=== PATIENT | female | born 1940 | race Caucasian/White ===

== ENCOUNTER 2024-01-16 14:24 | Inpatient (IN) | payer OTHER, SELFPAY ==
[2024-01-16] VITALS (12 sets, daily range): BP systolic 118–162; BP diastolic 62–93; BMI 24.2; BMI 23.8
--- NOTE | 2024-01-16 11:07 | ED.GENMED ---
History of Present Illness
General
Chief Complaint: Breathing Problem
Time Seen by Provider: 01/16/24 10:49
Travel History
Have you had any contact with someone who has COVID-19?: No
Do you have any symptoms of coronavirus? Fever > 100 degrees, chills, cough, shortness of breath, sore throat, loss of taste or smell, muscle aches, or headache?: No
History of Present Illness
History of Present Illness:
83-year-old female with history of COPD presents to the emergency department for evaluation of shortness of breath over the past several days. She was apparently admitted to [facility] last month for COPD exacerbation and then
discharged to rehab. She has been home for approximately 1 week living with her daughter locally. She denies any chest pain. States she only feels short of breath when exerting herself. Had a visiting nurse see her today that felt she should
come to the emergency department. Denies any fevers, chills, chest pain, nausea, vomiting. She has had lower extremity edema since the hospital stay.
Review of Systems
Review of Systems
Allergies reviewed?: Yes
All Other Systems: ROS reviewed and negative except as documented in HPI and ROS
Phy Exam
Physical Exam
Physical Exam:
GEN: Tachypneic with increased respiratory effort, nontoxic
Eyes: PERRLA, EOMs intact, no scleral icterus
HENT: NCAT, oral mucosa moist, no JVD, no cervical adenopathy.
Lungs: Tachypneic, pursed lip breathing, grossly diminished breath sounds with expiratory wheezes
Cardiac: RRR, no M/R/G, plus pitting bilateral lower extremities peripheral edema. Radial pulses 2+ bilat
Abdomen: S, NT, ND, NABS, no masses or hepatosplenomegaly
Neuro: AO x 3
MSK: No gross deformity or ecchymosis. No digital clubbing
Skin: No rashes, petechiae. Normal color, no pallor or jaundice.
Psych: Calm, cooperative, proper hygiene
Scores
Heart Failure Risk
Heart Failure Risk Score: Not Applicable
Course
Orders/Labs/Results
Orders:
Orders
01/16/24 Lunch
Cholesterol Lowering
At Your Request: Limited Participation
Does patient need a safe tray?: No
01/16/24 10:37
CR Chest - 2 Views Urgent
Comment:
Reason For Exam: respiratory distress
01/16/24 11:06
Ipratropium/Albuterol Sulfate [Duoneb] 3 ml INH R NOW ONE
01/16/24 11:09
COVID-19 Antigen Urgent
Source: Nasal Swab
Complete Blood Count/With Diff Urgent
Comprehensive Metabolic Panel Urgent
NT-proBNP Urgent
NT-proBNP Urgent
Comment: ADD ON
Troponin I Urgent
Influenza A+B Rapid Molecular Urgent
CHICA Source: Nasal Swab
Specimen Description:
01/16/24 12:44
Dexamethasone Sod Phosphate [Decadron] 6 mg IV NOW STA
01/16/24 13:48
Add On- LAB Urgent
Tests Added?: BNP
01/16/24 14:01
EKG [Electrocardiogram (*1)] Routine
Reason for Study: Other
Other Reason for Exam: eleva trop
01/16/24 14:02
Admit/Transfer Patient As Directed
Co-Sign Provider:
Level of Care: Inpatient admission
Assign to:: Medical/Surgical
Physician / Group: edward bautista
Diagnosis: COPD exac
Reason for Hospitalization: COPD exac
Expected length of stay greater than two midnights?: Yes
ELOS- Estimated Length of Stay in days: 2
I certify the patient meets the requirements for IP care: Yes
01/16/24 14:04
Code Status As Directed
Resuscitation Status: Full Code
Abnormal Lab Results
01/16/24
11:09
RBC 3.40 L 10^6/uL
(4.20-5.40)
Hgb 9.7 L g/dL
(12.0-16.0)
Hct 30.8 L %
(37.0-47.0)
MCHC 31.5 L g/dL
(33.0-37.0)
RDW 15.7 H %
(11.5-14.5)
Absolute Neuts (auto) 7.3 H 10^3/uL
(1.4-6.5)
Absolute Lymphs (auto) 0.8 L 10^3/uL
(1.2-3.4)
Absolute Monos (auto) 0.7 H 10^3/uL
(0.1-0.6)
Neutrophils % 81.2 H %
(42.2-75.2)
Lymphocytes % 9.0 L %
(20.5-51.1)
BUN 22 H mg/dl
(7-17)
Creatinine 1.2 H mg/dL
(0.6-1.0)
Glucose 136 H mg/dl
(70-99)
AST 43 H U/L
(14-36)
Troponin I 0.060 H* ng/ml
Total Protein 6.1 L g/dl
(6.3-8.2)
01/16/24 11:09
01/16/24 11:09
Vital Signs
Initial and Last Documented VS:
Initial Vital Signs
Temp Pulse Resp BP Pulse Ox
98.3 F 83 14 130/65 91
01/16/24 10:34 01/16/24 10:34 01/16/24 10:34 01/16/24 10:34 01/16/24 10:34
Last Documented Vital Signs
Temp Pulse Resp BP Pulse Ox
98.3 F 73 16 135/79 96
01/16/24 10:34 01/16/24 11:15 01/16/24 11:15 01/16/24 11:11 01/16/24 11:15
MDM/Problems Addressed
MDM/Problems Addressed:
83-year-old female presenting to the emergency department shortness of breath found to be in acute COPD exacerbation evidenced by wheezing and hypoxia as well as pursed lip breathing. Also consider potential pulmonary embolism given recent hospital
stay however her lack of chest pain, tachycardia, and presence of adventitious lung sounds is reassuring. She does not appear to be volume overloaded to suggest acute CHF. Given the your need for supplemental oxygen will admit to the hospitalist
service for further management
Comment
Comment:
EKG independently interpreted by me shows normal sinus rhythm at a rate of [address] changes concerning for ischemia
*Critical Care Note
Total Time (30-74mins, 75-104mins- exclusive of procedures): Not Applicable
ED Attending Note
-
Portions of this chart may have been created with voice recognition software.� Occasional wrong word or��sound alike� substitutions may have occurred due to the inherent limitations of voice recognition software.
Discharge Plan
Departure
Patient Disposition: Admit
Date of Disposition: 01/16/24
Time of Disposition: 12:50
Admit to: Med/Surg
Presentation/result/management discussed w/ accepting MD/DO: Hospitalist
Discharge Problem:
Acute exacerbation of chronic obstructive pulmonary disease, Acute hypoxemic respiratory failure
Interventions
Interventions:
*Risk Screen - Suicide Last Done: 01/16/24 10:34
*General Assessment Last Done: 01/16/24 10:34
*Neglect/Abuse Screening Last Done: 01/16/24 10:34
ED- Fall Risk Assessment Last Done: 01/16/24 11:14
*ED COVID-19 Vaccine History Last Done: 01/16/24 11:01
ED- Cardiac Assessment Last Done: 01/16/24 11:12
ED- Pulmonary Assessment Last Done: 01/16/24 11:12
[2024-01-16 11:23] LABS: % Basophils 0.9 % (0-2); % Eosinophils 1.1 % (0-6); % Immature Granulocytes 0.3 % (0-0.5); % Monocytes 7.5 % (1.7-9.3); % Neutrophils 81.2 % (42.2-75.2); Absolute Basophils 0.1 10^3/uL (0-0.2); Absolute Eosinophils 0.1 10^3/uL (0-0.7); Absolute Lymphocytes 0.8 10^3/uL (1.2-3.4); Absolute Monocytes 0.7 10^3/uL (0.1-0.6); Absolute Neutrophils 7.3 10^3/uL (1.4-6.5); Hematocrit 30.8 % (37.0-47.0); Hemoglobin 9.7 g/dL (12.0-16.0); Mean Corp Hgb Conc. 31.5 g/dL (33.0-37.0); Mean Corpuscular Hgb 28.5 pg (27.0-31.0); Mean Corpuscular Volume 90.6 fL (81.0-99.0); Nucleated Red Blood Cells % 0 %; Platelet Count 256 10^3/uL (130-400); Red Cell Dist. Width 15.7 % (11.5-14.5)
[2024-01-16] MEDS: DUONEB 3 ML INH ×2 (11:26→20:05)
[2024-01-16 11:30] LABS: COVID-19 Antigen Negative (Negative)
[2024-01-16 11:45] LABS: ALT (SGPT) 27 U/L (0-35); AST (SGOT) 43 U/L (14-36); Albumin 3.5 g/dl (3.5-5.0); Alkaline Phosphatase 97 U/L (38-126); Blood Urea Nitrogen 22 mg/dl (7-17); Calcium 9.7 mg/dl (8.4-10.2); Carbon Dioxide 28 mmol/L (22-30); Chloride 105 mmol/L (98-107); Estimated Creatinine Clearance 31 ml/min; Glucose 136 mg/dl (70-99); Potassium 4.6 mmol/L (3.5-5.1); Sodium 138 mmol/L (135-145); Total Bilirubin 0.6 mg/dl (0.2-1.3); Total Protein 6.1 g/dl (6.3-8.2); eGFR 44.64
[2024-01-16 11:48] LABS: NT-proBNP 698 pg/ml
--- NOTE | 2024-01-16 13:18 | HPS.HSE ---
Family Physician
-
Family Physician: NOT KNOW UNKNOWN - PT DOES
Chief Complaint
-
Worsening shortness of breath with activity
History of Present Illness
83-year-old female with a past medical history of COPD, duodenal ulcer/GERD, CAD, orthostatic hypotension on midodrine, and AAA rupture status post repair presents with worsening shortness of breath with activity. Patient was hospitalized from
11/28/2023 through 12/23/2023 at [facility] for acute COPD exacerbation. She was discharged to [facility]-term rehab for 11 days, then recently went home with her daughter 1 week ago. Patient was seen by home visiting nurses,
noted to have worsening dyspnea with activity. Patient does report that her breathing with activity is worse than normal, she denies coughing. No fever, no chills. No chest pain. No nausea, no vomiting. No black or bloody stools. She did have
dark stools while she was at [facility], was told that she has an ulcer of the small bowel. She did not need any blood transfusions at the time.
Medical History
Past Medical History
Past Medical History: Reports Other
Additional Past Medical History:
COPD
Duodenal ulcer/GERD
Coronary artery disease
Orthostatic hypotension
AAA rupture status post repair
Past Surgical History: Reports Other
Additional Past Surgical History:
AAA repair
Social History
Tobacco: Former Smoker (Smoked 1 pack/day for about 30 years, quit 24 years ago)
Alcohol: None
Drug: None
Family History
Family History: Not pertinent
Allergies / Home Medications
Allergies reflects when Allergies were last updated in [facility].
Home Medications with original date entered in [facility]
Allergy/Medication List:
Allergies
Allergy/AdvReac Type Severity Reaction Status Date / Time
No Known Allergies Allergy Verified 01/16/24 11:20
Home Medications Table - record
�Medication �Instructions �Recorded �Confirmed
aspirin 81 mg tablet,delayed 81 mg PO DAILY 01/16/24 01/16/24
release
atorvastatin 80 mg tablet (Lipitor) 80 mg PO HS 01/16/24 01/16/24
calcium carbonate 500 mg PO DAILY 01/16/24 01/16/24
cholecalciferol (vitamin D3) 50 50 mcg PO DAILY 01/16/24 01/16/24
mcg (2,000 unit) tablet (Vitamin
D3)
folic acid 1 mg tablet 1 mg PO DAILY 01/16/24 01/16/24
metoprolol tartrate 25 mg tablet 12.5 mg PO DAILY 01/16/24 01/16/24
midodrine 2.5 mg tablet 2.5 mg PO DAILY 01/16/24 01/16/24
pantoprazole 40 mg tablet,delayed 40 mg PO BID 01/16/24 01/16/24
release (Protonix)
therapeutic multivitamin 1 tab PO DAILY 01/16/24 01/16/24
timolol 0.5 % eye drops 1 drp BOTH EYES DAILY 01/16/24 01/16/24
umeclidinium 62.5 mcg-vilanterol 1 inh inhalation R DAILY 01/16/24 01/16/24
25 mcg/actuation powdr for
inhalation (Anoro Ellipta)
Review of Systems
-
A 12 point ROS was completed and negative except as noted: Yes
Physical Exam
Vital Signs
Vital Signs
Temp Pulse Resp BP Pulse Ox
98.3 F 73 16 135/79 96
01/16/24 10:34 01/16/24 11:15 01/16/24 11:15 01/16/24 11:11 01/16/24 11:15
Physical Exam
General: No Apparent Distress
HEENT: NormoCephalic, Anicteric, Moist mucous membranes and Atraumatic
Respiratory: Clear
Cardiac: S1/S2 and Regular Rhythm
GI: Soft, Non Tender, Non Distended and Normal Bowel Sounds
Musculoskeletal: No Clubbing, No Cyanosis, Edema, Left Lower Extremity and Edema, Right Lower Extremity
Skin: Warm and Dry
Neuro: AO x 3
Psych: Calm
Laboratory Results
-
01/16/24 11:09
01/16/24 11:09
Laboratory Results
Total Bilirubin 0.6 mg/dl (0.2-1.3) 01/16/24 11:09
AST 43 U/L (14-36) H 01/16/24 11:09
ALT 27 U/L (0-35) 01/16/24 11:09
Alkaline Phosphatase 97 U/L (38-126) 01/16/24 11:09
Troponin I 0.060 ng/ml H* 01/16/24 11:09
Impression/Plan
-
HPI: 83-year-old female with a past medical history of COPD, duodenal ulcer/GERD, CAD, orthostatic hypotension on midodrine, and AAA rupture status post repair presents with worsening shortness of breath with activity. Patient was hospitalized from
11/28/2023 through 12/23/2023 at [facility] for acute COPD exacerbation. She was discharged to [facility]-term rehab for 11 days, then recently went home with her daughter 1 week ago. Patient was seen by home visiting nurses,
noted to have worsening dyspnea with activity. Patient does report that her breathing with activity is worse than normal, she denies coughing. No fever, no chills. No chest pain. No nausea, no vomiting. No black or bloody stools. She did have
dark stools while she was at [facility], was told that she has an ulcer of the small bowel. She did not need any blood transfusions at the time.
#Acute COPD exacerbation
#Acute hypoxic respiratory sufficiency
COVID/flu negative, chest x-ray negative for acute cardiopulmonary disease
Patient satting 88% on room air, currently requiring 2 L of oxygen, wean as tolerated
Check a.m. ABG, treat with IV dexamethasone, azithromycin for anti-imflammatory effects, bronchodilators
#Bilateral lower extremity edema
Add on BNP, check LE US, check echo
#Non-myocardial infarction troponin elevation
No CP, monitor
#Recent duodenal ulcer
#Recent subacute blood loss anemia
Denies black or bloody stools
Obtain records from [facility]
Continue PPI twice daily, monitor hemoglobin
#Elevated creatinine, probable stage III CKD
Monitor creatinine, avoid NSAIDs/nephrotoxic drugs
#Generalized weakness
PT/OT
#Coronary artery disease
Continue aspirin/statin/beta-nga
#Orthostatic hypotension
Continue midodrine 2.5 mg daily
DVT prophylaxis�subcu heparin
Full code
[2024-01-16] MEDS: DECADRON 6 MG IV (13:44)
[2024-01-16 15:14] LABS: NT-proBNP 700 pg/ml
[2024-01-16] MEDS: HEPARIN 25000 UNITS/250 ML IV (18:02)
[2024-01-16 18:16] LABS: APTT 29.7 Sec (23.4-35.0)
[2024-01-16] MEDS: DUONEB INH (20:03)
[2024-01-16] MEDS: PULMICORT 0.5 MG INH (20:04)
--- NOTE | 2024-01-16 20:11 | PTCARENOTE ---
Rn workforce management coordinator- Patients admisssion completed. Neihart texted Dr Do to see if patient patient should be on heart monitor.
[2024-01-16] MEDS: PROTONIX 40 MG PO (21:04)
[2024-01-16] MEDS: ZITHROMAX 250 MG PO (21:04)
[2024-01-16] MEDS: LIPITOR 80 MG PO (21:05)
[2024-01-16] MEDS: DECADRON 4 MG IV (21:15)
[2024-01-16] MEDS: SODIUM BICARBONATE 1075 MEQ IV (21:16)
[2024-01-17 01:15] LABS: APTT 175.2 Sec (23.4-35.0)
[2024-01-17 06:00] VITALS: BMI 24.0
[2024-01-17 07:28] LABS: B.E. 5.4 mmol/L; HCO3 29.9 mmol/L (21-28); O2 Saturation % 98.2 % (94-98); PCO2 43 mmHg (32-35); PO2 81 mmHg (83-108); pH 7.45 (7.35-7.45)
[2024-01-17] MEDS: PULMICORT 0.5 MG INH ×2 (07:32→19:26)
[2024-01-17] MEDS: DUONEB 3 ML INH ×4 (07:32→19:26)
--- NOTE | 2024-01-17 08:16 | W.PN.HOSP.TC ---
Addendum entered and electronically signed by Brett Pollard MD 01/18/24 12:59:
Patient has non-ischemic myocardial injury
Original Note:
Today's Communication/Plan
-
see bold
Assessment / Plan
Assessment / Plan
#Acute COPD exacerbation
#Acute hypoxic respiratory sufficiency
COVID/flu negative, chest x-ray negative for acute cardiopulmonary disease
Patient now satting on room air, was requiring 2 L of oxygen
Will change from IV dexamethasone to oral prednisone, continue bronchodilators
#Acute left lower extremity DVT
Continue heparin drip, due to patient's recent duodenal ulcer bleed
Await records from [facility], patient may need chest CT to assess for PE
#Bilateral lower extremity edema
Follow-up echocardiogram
#Non-myocardial infarction troponin elevation
No CP, monitor
#Recent duodenal ulcer
#Recent subacute blood loss anemia
Denies black or bloody stools
Obtain records from [facility]
Continue PPI twice daily, monitor hemoglobin
#Elevated creatinine, probable stage III CKD
Monitor creatinine, avoid NSAIDs/nephrotoxic drugs
#Generalized weakness
PT/OT
#Coronary artery disease
Continue aspirin/statin/beta-nga
#Orthostatic hypotension
Continue midodrine 2.5 mg daily
DVT prophylaxis� heparin drip
Full code
Updated daughter at bedside/
Total time spent to see the patient on the floor, examine the patient, review data and lab results, discuss treatment plan with patient, nursing staff around 51 minutes.
Physical Exam
General: Frail, elderly, no acute distress
HEENT: Normocephalic, Atraumatic, EOMI, MMM
Respiratory: Bibasilar crackles noted, no wheezing
Cardiac: Normal S1/S2, Regular Rate and Rhythm
GI: Soft, Nontender, Nondistended, Normal Bowel Sounds
Extremities: No Clubbing, Cyanosis
Bilateral lower extremity edema noted
Neuro: Nonfocal/Grossly Intact
Psych: Calm, Cooperative
Derm: No Visible lesions
Anticipated Discharge: 24 - 48 hours
Subjective/Interval History
-
Date of Service: January 17, 2024
Patient reports dyspnea with activity has improved. No coughing, no shortness of breath at rest. No fever, no vomiting.
Objective Data
-
Labs:
Laboratory Results
01/17/24 01/17/24 01/17/24
00:28 06:00 07:20
APTT 175.2 H*
HCO3 29.9 H
Sodium Pending
Potassium Pending
Chloride Pending
Carbon Dioxide Pending
BUN Pending
Creatinine Pending
Glucose Pending
Calcium Pending
01/17/24
08:40
APTT Pending
HCO3
Sodium
Potassium
Chloride
Carbon Dioxide
BUN
Creatinine
Glucose
Calcium
Vital Signs:
Vital Signs
Temp Pulse Resp BP Pulse Ox
97.8 F 82 14 118/64 96
01/16/24 23:53 01/17/24 07:35 01/17/24 07:35 01/16/24 23:53 01/17/24 07:35
[2024-01-17 08:19] VITALS: BP 119/71
[2024-01-17 09:16] LABS: APTT 170.1 Sec (23.4-35.0)
[2024-01-17] MEDS: ProAmatine 2.5 MG PO (11:27)
[2024-01-17] MEDS: ZITHROMAX 250 MG PO (11:28)
[2024-01-17] MEDS: VITAMIN D3 (cholecalciferol) 50 MCG PO (11:28)
[2024-01-17] MEDS: FOLVITE 1 MG PO (11:28)
[2024-01-17] MEDS: LOPRESSOR 12.5 MG PO (11:28)
[2024-01-17] MEDS: OSCAL CAL 500 500 MG PO (11:28)
[2024-01-17] MEDS: ASPIR LOW (ENTERIC COATED) 81 MG PO (11:28)
[2024-01-17] MEDS: DECADRON 4 MG IV (11:28)
[2024-01-17] MEDS: PROTONIX 40 MG PO ×2 (11:28→20:12)
[2024-01-17] MEDS: THERAGRAN 1 TABLET PO (11:28)
[2024-01-17] MEDS: TIMOPTIC 0.5% OPHTHALMIC SOLUTION 1 DROP BOTH EYES (11:28)
[2024-01-17 12:01] LABS: Blood Urea Nitrogen 26 mg/dl (7-17); Calcium 9.3 mg/dl (8.4-10.2); Carbon Dioxide 28 mmol/L (22-30); Chloride 106 mmol/L (98-107); Estimated Creatinine Clearance 38 ml/min; Glucose 116 mg/dl (70-99); Potassium 4.1 mmol/L (3.5-5.1); Sodium 136 mmol/L (135-145); eGFR 55.55
[2024-01-17 16:10] VITALS: BP 111/61
[2024-01-17 16:38] LABS: APTT 87.4 Sec (23.4-35.0)
--- NOTE | 2024-01-17 16:49 | CM ---
assistant operations manager reviewed patient's chart and met with patient and patient lives alone in a 2 story home today, patient is independent with adl's and ambulation, no dme, per jose her children assist with shopping. patient has a prescription plan and
uses [facility] pharmacy.
PCP: Dr. Garduno.
Plan; Home when stable.
[2024-01-17] MEDS: LIPITOR 80 MG PO (20:12)
[2024-01-17] MEDS: HEPARIN 25000 UNITS/250 ML IV (20:20)
[2024-01-17 23:36] LABS: APTT 67.1 Sec (23.4-35.0)
[2024-01-17 23:37] VITALS: BP 129/71
[2024-01-18] MEDS: HEPARIN 2600 UNITS IV (00:34)
[2024-01-18 06:00] VITALS: BMI 24.1
[2024-01-18 07:04] LABS: Hematocrit 28.6 % (37.0-47.0); Mean Corp Hgb Conc. 31.5 g/dL (33.0-37.0); Mean Corpuscular Hgb 28.5 pg (27.0-31.0); Mean Corpuscular Volume 90.5 fL (81.0-99.0); Mean Platelet Volume 10.4 fL (7.4-10.4); Platelet Count 231 10^3/uL (130-400); Red Blood Cell Count 3.16 10^6/uL (4.20-5.40); Red Cell Dist. Width 15.9 % (11.5-14.5)
[2024-01-18] MEDS: PULMICORT 0.5 MG INH ×2 (07:33→20:14)
[2024-01-18] MEDS: DUONEB 3 ML INH ×4 (07:33→20:14)
[2024-01-18 07:47] LABS: APTT > 200 Sec (23.4-35.0)
[2024-01-18 08:11] VITALS: BP 147/74
--- NOTE | 2024-01-18 08:32 | W.PN.HOSP.TC ---
Today's Communication/Plan
-
C/s pulm
Stop steroids
Assessment / Plan
Assessment / Plan
#Acute left lower lobe mass concerning for malignancy
May need biopsy and/or PET scan
Patient has a smoking history, consult pulmonology
Obtain records from [facility]
#Acute bilateral PE
#Acute left lower extremity DVT
Echo EF 65-70%, mild LVH, stage 2 DD, mod TR
Was on IV heparin, changed to Eliquis 01/17�received 1 dose at 12 PM
Unclear if she needs to be resumed on IV heparin for poss biopsy or okay to resume Eliquis�will wait for pulmonology
#Acute COPD exacerbation ruled out
#COPD
COVID/flu negative, chest x-ray negative for acute cardiopulmonary disease
Patient was not wheezing or coughing in the ER, will stop prednisone
#Acute hypoxic respiratory sufficiency
Patient now satting on room air, was requiring 2 L of oxygen
#Non-myocardial infarction troponin elevation
#Non-ischemic myocardial injury
No CP, monitor
#Recent duodenal ulcer
#Recent subacute blood loss anemia
Denies black or bloody stools
Obtain records from [facility]
Continue PPI twice daily, monitor hemoglobin
#Elevated creatinine, probable stage III CKD
Monitor creatinine, avoid NSAIDs/nephrotoxic drugs
#Generalized weakness
PT/OT
#Coronary artery disease
Continue aspirin/statin/beta-nga
#Orthostatic hypotension
Continue midodrine 2.5 mg daily
DVT prophylaxis� heparin drip vs eliquis
Full code
Updated daughter 01/17
Total time spent to see the patient on the floor, examine the patient, review data and lab results, discuss treatment plan with patient, nursing staff around 55 minutes.
Physical Exam
General: Frail, elderly, no acute distress
HEENT: Normocephalic, Atraumatic, EOMI, MMM
Respiratory: Bibasilar crackles noted, no wheezing
Cardiac: Normal S1/S2, Regular Rate and Rhythm
GI: Soft, Nontender, Nondistended, Normal Bowel Sounds
Extremities: No Clubbing, Cyanosis
Bilateral lower extremity edema noted
Neuro: Nonfocal/Grossly Intact
Psych: Calm, Cooperative
Derm: No Visible lesions
Anticipated Discharge: > 48 hours
Subjective/Interval History
-
Date of Service: January 18, 2024
Reports breathing improved. No chest pain, no fever, no vomiting.
Objective Data
-
Labs:
Laboratory Results
01/17/24 01/18/24
23:14 06:47
WBC 10.0
Hgb 9.0 L
Hct 28.6 L
Plt Count 231
APTT 67.1 H > 200 H*
Sodium Pending
Potassium Pending
Chloride Pending
Carbon Dioxide Pending
BUN Pending
Creatinine Pending
Glucose Pending
Calcium Pending
Vital Signs:
Vital Signs
Temp Pulse Resp BP Pulse Ox
98 F 85 18 147/74 94
01/18/24 08:11 01/18/24 08:11 01/18/24 08:11 01/18/24 08:11 01/18/24 08:11
I&O
01/17/24 01/18/24 01/19/24
06:59 06:59 06:59
Intake Total 720 / 720
Balance 720 / 720
[2024-01-18 08:50] VITALS: BP 142/80; PULSE 121; PULSE 86; O2SAT 89
[2024-01-18 09:15] VITALS: BP 142/80; PULSE 91; O2SAT 91
[2024-01-18] MEDS: ProAmatine 2.5 MG PO (09:34)
[2024-01-18] MEDS: LOPRESSOR 12.5 MG PO (09:34)
[2024-01-18] MEDS: OSCAL CAL 500 500 MG PO (09:35)
[2024-01-18] MEDS: ZITHROMAX 250 MG PO (09:35)
[2024-01-18] MEDS: FOLVITE 1 MG PO (09:36)
[2024-01-18] MEDS: DELTASONE 40 MG PO (09:36)
[2024-01-18] MEDS: VITAMIN D3 (cholecalciferol) 50 MCG PO (09:36)
[2024-01-18] MEDS: ASPIR LOW (ENTERIC COATED) 81 MG PO (09:36)
[2024-01-18] MEDS: THERAGRAN 1 TABLET PO (09:36)
[2024-01-18] MEDS: TIMOPTIC 0.5% OPHTHALMIC SOLUTION 1 DROP BOTH EYES (09:36)
[2024-01-18] MEDS: PROTONIX 40 MG PO ×2 (09:36→20:53)
[2024-01-18 10:12] LABS: Blood Urea Nitrogen 31 mg/dl (7-17); Calcium 9.4 mg/dl (8.4-10.2); Carbon Dioxide 27 mmol/L (22-30); Chloride 105 mmol/L (98-107); Estimated Creatinine Clearance 34 ml/min; Glucose 84 mg/dl (70-99); Potassium 3.9 mmol/L (3.5-5.1); Sodium 136 mmol/L (135-145); eGFR 49.55
--- NOTE | 2024-01-18 11:29 | PN.CDI ---
CDI
- -
CDI:
Physician Documentation Request
Admit Date: 01/16/24 14:24
Dear Doctor Do,
Please review the following and provide your response in the progress notes.
Clinical Indicators:
Pt admitted with COPD exacerbation/ DVT left leg
Documented in H&P and progress note 01/16 ,'Non-myocardial infarction troponin elevation..'
Please provide a diagnosis for the documented troponin elevation:
Non-ischemic myocardial injury
Lab abnormality only
Other (please specify)
Use of terms such as suspected, likely, concern for, or probable (associated with a specific diagnosis that is being evaluated, monitored, or treated as if it exists) are acceptable and can be coded in the inpatient setting, when documented at the
time of discharge.
Thank you,
Judith Mcdonough RN
CDI Specialist
[place] [facility]
Please use your independent medical judgment in providing your response.
[2024-01-18] MEDS: ELIQUIS 10 MG PO (11:59)
--- NOTE | 2024-01-18 12:17 | CM ---
Addendum entered by Lovely Jose 01/18/24 16:02:
starter pack not available; Attending notified
Patient given a Xarelto coupon
Original Note:
Case Management Consult completed; cost check for Xarelto
Cost for Xarelto 20 mg tablet for 30 days is $30.00
Will provide Xarelto starter pack sample per Attending's request
[2024-01-18 15:00] VITALS: BP 139/74
--- NOTE | 2024-01-18 15:55 | CON.PUL ---
Consultation
Consultation Request
Date/Time Consultation Requested: 01/18/2024
Date/Time Consultation Performed: 01/18/2024
Requesting Provider: Dr. Pollard
Performing Provider: Dr. Chad Tong
Reason for Consultation: Abnormal CT chest
Medical History
-
History of Present Illness:
83-year-old woman with past medical history significant for COPD, prior duodenal ulcer/GERD, coronary artery disease, orthostatic hypotension on midodrine and abdominal aortic aneurysm rupture status post repair presents with worsening shortness of
breath with activity. Apparently hospitalized in early November at [facility] for COPD exacerbation.
Subsequently discharged to rehab for 11 days. About a week ago discharged home with her daughter.
Due to increased shortness of breath with activity she was sent to the hospital for further evaluation.
There is no reports of cough, wheezing or phlegm production.
Reports some dark stools.
Part of the evaluation including a CAT scan that demonstrated subsegmental pulmonary embolism.
She also has a lung mass with mediastinal lymph node.
Has emphysema as well.
Patient denies any weight loss.
Denies hemoptysis.
Past Medical History
Past Medical History: Other (See assessment and plan section)
Social History
Tobacco: Former Smoker ( 1 pack/day for about 30 years, quit 30 years ago.)
Alcohol: None
Drug: None
Living: With Family
Family History
Family History: Reviewed & Not Pertinent
Allergies / Home Medications
Allergies
Allergy/AdvReac Type Severity Reaction Status Date / Time
No Known Allergies Allergy Verified 01/16/24 11:20
Home Medications
�Medication �Instructions �Recorded �Confirmed �Last Taken �Type
aspirin 81 mg tablet,delayed 81 mg PO DAILY Blood Clot 01/16/24 01/16/24 01/16/24 History
release Prevention/Tx
atorvastatin 80 mg tablet (Lipitor) 80 mg PO HS High Cholesterol 01/16/24 01/16/24 01/15/24 History
calcium carbonate 500 mg PO DAILY Supplement 01/16/24 01/16/24 01/16/24 History
cholecalciferol (vitamin D3) 50 50 mcg PO DAILY Supplement 01/16/24 01/16/24 01/16/24 History
mcg (2,000 unit) tablet (Vitamin
D3)
folic acid 1 mg tablet 1 mg PO DAILY Supplement 01/16/24 01/16/24 01/16/24 History
metoprolol tartrate 25 mg tablet 12.5 mg PO DAILY Blood Pressure 01/16/24 01/16/24 01/16/24 History
midodrine 2.5 mg tablet 2.5 mg PO DAILY Blood Pressure 01/16/24 01/16/24 01/16/24 History
pantoprazole 40 mg tablet,delayed 40 mg PO BID Gastrointestinal Issue 01/16/24 01/16/24 01/16/24 History
release (Protonix)
therapeutic multivitamin 1 tab PO DAILY Supplement 01/16/24 01/16/24 01/16/24 History
timolol 0.5 % eye drops 1 drp BOTH EYES DAILY Eye Condition 01/16/24 01/16/24 01/16/24 History
umeclidinium 62.5 mcg-vilanterol 1 inh inhalation R DAILY 01/16/24 01/16/24 01/16/24 History
25 mcg/actuation powdr for Lung/Breathing Issues
inhalation (Anoro Ellipta)
Review of Systems
-
History Source: Patient
All other systems: Negative unless noted
Vitals / Labs / Diagnostic Testing
Vital Signs
Temp Pulse Resp BP Pulse Ox
98 F 80 16 147/74 99
01/18/24 08:11 01/18/24 15:45 01/18/24 15:45 01/18/24 09:34 01/18/24 12:05
Lab Data
01/18/24 06:47
01/18/24 06:47
Laboratory Results
01/17/24 01/17/24 01/18/24
16:20 23:14 06:47
APTT 87.4 H 67.1 H > 200 H*
Microbiology
01/16/24 11:09 Nasal Swab Influenza Types A & B (JAMIA) - Final
Negative for Influenza A & B, NAAT
Negative results must be combined with clinical observations
and patient history.
Nucleic Acid Amplification test (NAAT)performed on the
[employer] platform.
Diagnostic Testing:
Physical Exam
-
HEENT: Normocephalic
Cardiovascular: S1/S2
Respiratory: Non-Labored Respirations
GI: Soft and Non Distended
Neurology: Awake, Alert and No Motor Deficits
Skin: Warm
General: Respiratory Distress (n)
Assessment
-
Abnormal CT chest: Lung mass with mediastinal lymph node. CT chest
01/18/2024:1). There is a 17 mm spiculated pulmonary mass in the superior segment of the right lower lobe. There is a 2.3 cm enlarged subcarinal lymph node.
2). There are small bilateral pulmonary emboli
3). There are moderately extensive emphysematous changes throughout both lungs
4). Enlarged thyroid with multiple small thyroid masses which, if clinically indicated, could be best further evaluated and followed with thyroid ultrasound
5). 5 cm hiatal hernia
6). Small bilateral pleural effusions with compressive atelectasis at the posterior lung bases
7). Atherosclerosis
8). 9.5 cm hepatic cyst
Shortness of breath: Possibly due to symptomatic anemia On top of COPD/emphysema.
No evidence for acute exacerbation.
Bilateral pulmonary embolism likely provoked from recent hospital stay-small burden
No RV dysfunction on echocardiogram.
Mildly increased troponins
Echocardiogram 01/17/2024: Normal LVEF. Normal biventricular size and function. Mild LVH. Stage II diastolic dysfunction. Mild aortic stenosis. Mild MR. Moderate TR. Pulmonary hypertension 50 mmHg.
History of recent duodenal ulcer: Recurrent acute blood loss anemia.
Conditions present prior admission:
Recent hospital stay [facility] 11/2023 subsequently discharged to rehab.
COPD-emphysema
Chronic kidney disease
Coronary artery disease
History of orthostatic hypotension on midodrine
Former smoker
Assessment and plan:
CT of the chest reviewed in detail with patient: Has a highly suspicious spiculated lung mass with mediastinal lymph node. No prior imaging for review.
Ideally bronchoscopic approach with robotic guidance and endobronchial ultrasound guidance is ideal.
With recent pulmonary embolism, significant deconditioning, recent GI bleed risk of general anesthesia is very high.
I recommend obtaining a PET/CT in the outpatient setting and then decide best approach for biopsy. If there is metastatic disease outside of the chest were patient will require only local anesthesia and light sedation will be best.
-
COPD: Not in exacerbation. Baseline oxygen requirements.
Shortness of breath combination of anemia and deconditioning.
Okay to continue DuoNebs and Pulmicort for now. Transition back to Anoro at discharge.
Usually patient is on Anoro in the outpatient setting. Does not follow-up locally.
-
Okay to continue oral anticoagulation for now. No immediate plans for biopsy.
-
Discussed with daughter in detail, images reviewed. She agrees that it is best to hold off on any biopsies at this point.
I offered local follow-up, patient is not sure whether she is going to stay local or go back to her home.
My information will be left in the chart to schedule appointment if patient chooses to stay locally.
-
Will continue to follow
--- NOTE | 2024-01-18 16:18 | PTCARENOTE ---
Pt AAO x3, ALMANZAR; OOB to chair/BR with minimal assistance/walker, luisa well. No c/o weakness/dizziness. VSS. On room air- pulse ox 99%, pt with (+) slight ANN; denies SOB. Abd soft, rounded, luisa PO well. Voids in BR without difficulty. Resting in
chair at present, no c/o. Will continue to monitor.
--- NOTE | 2024-01-18 16:34 | W.PN.UPDATE ---
Update Note
Progress Note Update
Appreciate pulmonology input, recommend outpatient PET scan, followed by possible outpatient biopsy.
Plan to discharge her home tomorrow on Xarelto starter pack.
Will start therapeutic Lovenox tonight to make Xarelto starter pack easier to follow.
[2024-01-18] MEDS: LIPITOR 80 MG PO (21:01)
[2024-01-18] MEDS: LOVENOX 70 MG SC (21:13)
[2024-01-18 23:45] VITALS: BP 117/71
[2024-01-19 05:42] LABS: Hematocrit 26.5 % (37.0-47.0); Hemoglobin 8.4 g/dL (12.0-16.0); Mean Corp Hgb Conc. 31.7 g/dL (33.0-37.0); Mean Corpuscular Hgb 28.4 pg (27.0-31.0); Mean Corpuscular Volume 89.5 fL (81.0-99.0); Mean Platelet Volume 10.4 fL (7.4-10.4); Platelet Count 218 10^3/uL (130-400); Red Blood Cell Count 2.96 10^6/uL (4.20-5.40); Red Cell Dist. Width 15.9 % (11.5-14.5); White Blood Cell Count 8.5 10^3/uL (4.8-10.8)
[2024-01-19 06:00] VITALS: BMI 24.2
[2024-01-19 06:16] LABS: Blood Urea Nitrogen 32 mg/dl (7-17); Calcium 9.4 mg/dl (8.4-10.2); Carbon Dioxide 29 mmol/L (22-30); Chloride 105 mmol/L (98-107); Estimated Creatinine Clearance 34 ml/min; Glucose 90 mg/dl (70-99); Potassium 4.2 mmol/L (3.5-5.1); Sodium 135 mmol/L (135-145); eGFR 49.55
[2024-01-19] MEDS: DUONEB 3 ML INH ×2 (07:27→16:00)
[2024-01-19] MEDS: PULMICORT 0.5 MG INH (07:28)
[2024-01-19 08:02] VITALS: BP 149/80
--- NOTE | 2024-01-19 08:34 | W.PN.HOSP.TC ---
Today's Communication/Plan
-
Discharge today
Assessment / Plan
Assessment / Plan
#Acute right lower lobe mass concerning for malignancy
Appreciate pulmonology input, recommend outpatient PET scan plus or minus biopsy
Follow-up with pulmonology in the office
#Acute bilateral PE
#Acute left lower extremity DVT
Echo EF 65-70%, mild LVH, stage 2 DD, mod TR
Status post IV heparin drip, followed by 1 dose of Eliquis
Now on therapeutic Lovenox
Will discharge on Xarelto
#Acute COPD exacerbation ruled out
#COPD
COVID/flu negative, chest x-ray negative for acute cardiopulmonary disease
Patient was not wheezing or coughing in the ER, will stop prednisone
#Acute hypoxic respiratory sufficiency
Patient now satting on room air at rest, was requiring 2 L of oxygen
Patient does require oxygen, 2 L with activity�case management is setting up
#Non-myocardial infarction troponin elevation
#Non-ischemic myocardial injury
No CP, monitor
#Recent duodenal ulcer
#Recent subacute blood loss anemia
Denies black or bloody stools
Obtain records from [facility]
Continue PPI twice daily, monitor hemoglobin
#Elevated creatinine, probable stage III CKD
Monitor creatinine, avoid NSAIDs/nephrotoxic drugs
#Generalized weakness
PT/OT
#Coronary artery disease
Continue aspirin/statin/beta-nga
#Orthostatic hypotension
Continue midodrine 2.5 mg daily
DVT prophylaxis� heparin drip vs eliquis
Full code
Updated daughter 01/18
Physical Exam
General: Frail, elderly, no acute distress
HEENT: Normocephalic, Atraumatic, EOMI, MMM
Respiratory: Bibasilar crackles noted, no wheezing
Cardiac: Normal S1/S2, Regular Rate and Rhythm
GI: Soft, Nontender, Nondistended, Normal Bowel Sounds
Extremities: No Clubbing, Cyanosis
Bilateral lower extremity edema noted
Neuro: Nonfocal/Grossly Intact
Psych: Calm, Cooperative
Derm: No Visible lesions
Anticipated Discharge: Today
Subjective/Interval History
-
Date of Service: January 18, 2024
Denies bleeding anywhere. No hematuria, no vaginal bleeding, no black or bloody stools. No fever, no vomiting. Reports dyspnea with activity improved overall.
Objective Data
-
Labs:
Laboratory Results
01/18/24 01/18/24
06:47 16:00
WBC 10.0
Hgb 9.0 L
Hct 28.6 L
Plt Count 231
APTT > 200 H* Pending
Sodium 136
Potassium 3.9
Chloride 105
Carbon Dioxide 27
BUN 31 H
Creatinine 1.1 H
Glucose 84
Calcium 9.4
Vital Signs:
Vital Signs
Temp Pulse Resp BP Pulse Ox
98 F 82 16 147/74 99
01/18/24 08:11 01/18/24 11:26 01/18/24 11:26 01/18/24 09:34 01/18/24 12:05
I&O
01/17/24 01/18/24 01/19/24
06:59 06:59 06:59
Intake Total 720 / 720
Balance 720 / 720
--- NOTE | 2024-01-19 09:15 | CM ---
Addendum entered by Lovely Jose 01/19/24 17:27:
Home Oxygen Orders faxed to [place] @ [facility]
Portable oxygen will be delivered to patient's room
Addendum entered by Lovely Jose 01/19/24 09:26:
IMM explained; form signed @ [phone]
Original Note:
Met with patient at bedside and spoke with patient's daughter, Dariana, via phone
Case Management Consult completed; [facility] health [facility] for [facility]N [facility]
Plan: discharge to daughter's home today with Home Health services; daughter will provide transport home
[2024-01-19] MEDS: PROTONIX 40 MG PO (09:23)
[2024-01-19] MEDS: LOPRESSOR 12.5 MG PO (09:23)
[2024-01-19] MEDS: VITAMIN D3 (cholecalciferol) 50 MCG PO (09:23)
[2024-01-19] MEDS: OSCAL CAL 500 500 MG PO (09:23)
[2024-01-19] MEDS: THERAGRAN 1 TABLET PO (09:24)
[2024-01-19] MEDS: ProAmatine 2.5 MG PO (09:24)
[2024-01-19] MEDS: FOLVITE 1 MG PO (09:25)
[2024-01-19] MEDS: TIMOPTIC 0.5% OPHTHALMIC SOLUTION 1 DROP BOTH EYES (09:25)
[2024-01-19] MEDS: LOVENOX 70 MG SC (09:28)
[2024-01-19 10:48] VITALS: O2SAT 82; O2SAT 90
[2024-01-19 11:24] LABS: Hematocrit 28.8 % (37.0-47.0); Hemoglobin 9.4 g/dL (12.0-16.0)
[2024-01-19] MEDS: DUONEB INH (12:10)
[2024-01-19 15:52] VITALS: BP 122/68; PULSE 74; O2SAT 98
[2024-01-19 16:12] VITALS: BP 118/57
--- NOTE | 2024-01-19 16:34 | W.PN.UPDATE ---
Update Note
Progress Note Update
Patient is in need of oxygen on exertion due to pulse oximetry of 90% on room air at rest; 82% on room air with exertion.
Patient was placed on 2L O2 via nasal cannula with saturation of 92%. Oxygen will help to improve hypoxemia.
Patient is mobile within the home. Albuterol therapy has been discussed and is ineffective in treating hypoxemia-related symptoms.
Oxygen will improve the patient's symptoms.
--- NOTE | 2024-01-19 16:37 | W.DCSUMMARY ---
Discharge Summary
Discharge Data
Date of Admission: 01/16/24
Date of Discharge: 01/19/24
-
Pending Results: No
Hospital Course
Discharge diagnosis:
Acute right lower lobe mass concerning for malignancy
Acute bilateral pulmonary emboli
Acute left lower extremity deep vein thrombosis
Acute hypoxic respiratory insufficiency
Chronic obstructive pulmonary disease
Generalized weakness
Recent duodenal ulcer
Recent subacute blood loss anemia
Nonischemic myocardial injury
Elevated creatinine, probable stage III chronic kidney disease
Orthostatic hypotension on midodrine
Coronary artery disease
Hepatic cyst
Hiatal hernia
Thyroid nodules
Consults: Pulmonology
Chest CT:
1). There is a 17 mm spiculated pulmonary mass in the superior segment of the right lower lobe. This mass is suspicious for malignancy. PET scan and/or biopsy is recommended for further evaluation. There is a 2.3 cm enlarged subcarinal lymph node.
2). There are small bilateral pulmonary emboli
3). There are moderately extensive emphysematous changes throughout both lungs
4). Enlarged thyroid with multiple small thyroid masses which, if clinically indicated, could be best further evaluated and followed with thyroid ultrasound
5). 5 cm hiatal hernia
6). Small bilateral pleural effusions with compressive atelectasis at the posterior lung bases
7). Atherosclerosis
8). 9.5 cm hepatic cyst
Hospital course:
83-year-old female with a past medical history of COPD, duodenal ulcer/GERD, CAD, orthostatic hypotension on midodrine, and AAA rupture status post repair presents with worsening shortness of breath with activity. Patient was hospitalized from
11/28/2023 through 12/23/2023 at [facility] for acute COPD exacerbation. Patient was not coughing or wheezing in the ER. She was hypoxic satting 88% on room air. Initially there was concern for COPD exacerbation, and she received IV
steroids and bronchodilators.
She had new onset bilateral lower extremity edema, lower extremity Dopplers confirm acute left lower extremity DVT. She had a recent duodenal ulcer bleed a month ago, and therefore she was anticoagulated with IV heparin. She was continued on
pantoprazole 40 mg twice a day. She did not have any black or bloody stools. Her hemoglobin remained stable greater than 9.
Chest CT shows acute bilateral PE, and right lower lobe mass concerning for malignancy. Patient was seen in conjunction with pulmonology. Pulmonology recommends outpatient PET scan, with possible biopsy. She was transitioned to therapeutic
Lovenox. COPD was ruled out, and her steroids were discontinued.
Patient continues to have intermittent dyspnea with activity, overall improved. She also had hemoptysis. She was counseled that her dyspnea is likely from a combination of the bilateral PE, anemia, and deconditioning. She was also reassured that
hemoptysis is common with PE, and should improve. She does need oxygen with activity, she needs to wear oxygen 2 L/min with activity. Case management has set her up with home oxygen.
Patient's hemoglobin was stable. She did not have any bleeding, no black or bloody stools on anticoagulation. Her hemoglobin remained stable greater than 9. She is medically stable for discharge. She will be discharged on a Xarelto starter pack.
Case management did confirm that this is covered by her insurance. She needs to follow-up with her primary care doctor in 1 week, as well as pulmonology in the office in 2-3 weeks.
Disposition: Home with home care
Discharge planning: Required 45 minutes
Discharge Plan
-
Patient Disposition: Home with Home Care
Discharge Diagnosis/Procedures: Acute hypoxic respiratory insufficiency, new bilateral pulmonary emboli, left lower extremity deep vein thrombosis/DVT, chronic obstructive pulmonary disease, weakness
Condition: Fair
Diet: Regular
Activity: As tolerated
Activity Restrictions/Additional Instructions:
Please wear oxygen 2 L with activity.
Please follow-up with pulmonology in the office in 2-3 weeks, and your primary care doctor in 1 week.
Instructions: Deep Vein Thrombosis (Blood Clots in the Legs) (DC), Pulmonary Embolism (Blood Clot in the Lungs) (DC)
Referrals:
Garduno,Yuliet [Other]
Chad Valero MD [Active] - in two to three weeks
Prescriptions:
New
Xarelto DVT-PE Treat 30d Start 15 mg (42)- 20 mg (9) tablets,dose pack
See Rx Instructions .ROUTE .COMPLEX Qty: 51 0RF
Rx Instructions:
Take according to directions on package
Continued
atorvastatin [Lipitor] 80 mg Tablet
80 mg PO HS
therapeutic multivitamin Tablet
1 tab PO DAILY
calcium carbonate 500 mg calcium (1,250 mg) Tablet
500 mg PO DAILY
timolol 0.5 % Drops
1 drp BOTH EYES DAILY
pantoprazole [Protonix] 40 mg Tablet,Delayed Release (Dr/Ec)
40 mg PO BID
folic acid 1 mg Tablet
1 mg PO DAILY
midodrine 2.5 mg Tablet
2.5 mg PO DAILY
metoprolol tartrate 25 mg Tablet
12.5 mg PO DAILY
cholecalciferol (vitamin D3) [Vitamin D3] 50 mcg (2,000 unit) Tablet
50 mcg PO DAILY
Anoro Ellipta 62.5-25 mcg/actuation Blister With Device
1 inh INHALATION R DAILY
Discontinued
aspirin 81 mg Tablet,Delayed Release (Dr/Ec)
81 mg PO DAILY
Discharge Orders:
Discharge Patient (As Directed); Ordered 01/19/24
Ordered By: Brett Pollard
Discharge Date and Time
Print Language: KOREAN
== END 2024-01-19 19:02 | disposition home health service (06) | DRG 176 ==
LOC: 4 EAST ACU 14:24
PROVIDERS: Physician Assistant; ADMITTING PHYSICIAN Family Medicine; EMERGENCY PHYSICIAN Student in an Organized Health Care Education/Training Program; OTHER PHYSICIAN Internal Medicine Critical Care Medicine
DX: I26.99 Other pulmonary embolism without acute cor pulmonale (principal); J98.11 Atelectasis; J90 Pleural effusion, not elsewhere classified; I5A Non-ischemic myocardial injury (non-traumatic); I82.452 Acute embolism and thrombosis of left peroneal vein; I82.442 Acute embolism and thrombosis of left tibial vein; J43.9 Emphysema, unspecified; K21.9 Gastro-esophageal reflux disease without esophagitis; I25.10 Atherosclerotic heart disease of native coronary artery without angina pectoris; I07.1 Rheumatic tricuspid insufficiency; R09.02 Hypoxemia; R06.89 Other abnormalities of breathing; K44.9 Diaphragmatic hernia without obstruction or gangrene; E04.2 Nontoxic multinodular goiter; K76.89 Other specified diseases of liver; I27.20 Pulmonary hypertension, unspecified; I95.1 Orthostatic hypotension; I71.40 Abdominal aortic aneurysm, without rupture, unspecified; N18.30 Chronic kidney disease, stage 3 unspecified; Z87.891 Personal history of nicotine dependence; Z11.52 Encounter for screening for COVID-19; Z87.11 Personal history of peptic ulcer disease; Z79.82 Long term (current) use of aspirin; Z86.711 Personal history of pulmonary embolism
CPT/HCPCS: 36600; 71046; 71275; 80048; 80053; 82805; 83880; 84484; 85014; 85018; 85025; 85027; 85730; 87502; 87811; 93005; 93306; 93970; 94640; 94761; 96374; 97116; 97163; 97167; 99285; J7030; Q9967

== ENCOUNTER 2024-02-03 05:00 | Observation (INO) | payer OTHER, SELFPAY ==
[2024-02-02 22:09] VITALS: BP 128/73
[2024-02-03] VITALS (9 sets, daily range): BP systolic 116–152; BP diastolic 61–89; BMI 25.4; BMI 22.5
--- NOTE | 2024-02-03 00:34 | ED.SKININJ ---
HPI-Injury
General
Chief Complaint: Skin Problem
Source: patient
Exam Limitations: none
Time Seen by Provider: 02/03/24 00:19
Nursing documentation reviewed up to this point in time: agreed with
Travel History
Have you had any contact with someone who has COVID-19?: No
Do you have any symptoms of coronavirus? Fever > 100 degrees, chills, cough, shortness of breath, sore throat, loss of taste or smell, muscle aches, or headache?: No
History of Present Illness-Injury
Initial Injury comments:
This a pleasant 83-year-old female that presents with bleeding likely from a small cut on her tongue. Patient was recently discharged after being diagnosed with a DVT and pulmonary embolus 1 week ago. She is on Xarelto. Tonight she was watching
television and had some bleeding from her mouth. Daughter was concerned because she cannot get the bleeding stopped. Patient reports no obvious injury. Upon arrival, bleeding. Denies any other complaints at this time.
Review of Systems
Review of Systems
Allergies reviewed?: Yes
All Other Systems: ROS reviewed and negative except as documented in HPI and ROS
Constitutional: Reports no symptoms
EENT: Reports no symptoms
Respiratory: Reports no symptoms
Cardiac: Reports no symptoms
ABD/GI: Reports no symptoms
: Reports no symptoms
Musculoskeletal: Reports no symptoms
Skin: Reports no symptoms
Neurological: Reports no symptoms
Endocrine: Reports no symptoms
Hematologic/Lymphatic: Reports bleeding
Psychiatric: Reports no symptoms
Phy Exam
General Physical Exam
General Presentation: well appearing and no apparent distress
General age: appears stated age
General Skin: warm and dry
General Habitus: elderly
General Mental: alert
General Hydration: appears well hydrated
General Chronic Disability: other (On chronic home O2)
ENT Exam
ENT Exam: EOMI, neck supple and other (No obvious laceration on the tongue.)
Additional ENT: Dentures
Gastrointestinal Exam
Rectal Exam: normal sphincter tone
Stool: brown
Guaiac Status: negative
Neurological Exam
Neurological Exam: alert, oriented x3, no motor deficits and speech normal
Musculoskeletal Exam
Musculoskeletal Exam: full ROM, no edema and neuro vasc intact
Skin Exam
Skin Exam: normal color, warm/dry and other (Large hematoma on the right hip which daughter states is subacute)
Psychiatric Exam
Psychiatric Exam: normal mood/affect
Course
Orders/Labs/Results
Orders:
Orders
02/03/24 02:32
Complete Blood Count/With Diff Urgent
Comprehensive Metabolic Panel Urgent
Prothrombin Time Urgent
Abnormal Lab Results
02/03/24
02:32
RBC 3.28 L 10^6/uL
(4.20-5.40)
Hgb 9.0 L g/dL
(12.0-16.0)
Hct 27.7 L %
(37.0-47.0)
MCHC 32.5 L g/dL
(33.0-37.0)
RDW 16.2 H %
(11.5-14.5)
Lymphocytes % 17.8 L %
(20.5-51.1)
PT 29.5 H Sec
(11.4-14.6)
Carbon Dioxide 31 H mmol/L
(22-30)
BUN 26 H mg/dl
(7-17)
Glucose 118 H mg/dl
(70-99)
Total Protein 5.9 L g/dl
(6.3-8.2)
Albumin 3.4 L g/dl
(3.5-5.0)
02/03/24 02:32
02/03/24 02:32
Vital Signs
Initial and Last Documented VS:
Initial Vital Signs
Temp Pulse Resp BP Pulse Ox
98.3 F 98 18 128/73 95
02/02/24 22:09 02/02/24 22:09 02/02/24 22:09 02/02/24 22:09 02/02/24 22:09
Last Documented Vital Signs
Temp Pulse Resp BP Pulse Ox
98.3 F 98 18 128/73 95
02/02/24 22:09 02/02/24 22:09 02/02/24 22:09 02/02/24 22:09 02/02/24 22:09
*Critical Care Note
Total Time (30-74mins, 75-104mins- exclusive of procedures): Not Applicable
Update Note
Update Note:
02/03/2024 0121 AM: Patient started bleeding again. Will be admitted
ED Attending Note
-
Portions of this chart may have been created with voice recognition software.� Occasional wrong word or��sound alike� substitutions may have occurred due to the inherent limitations of voice recognition software.
Discharge Plan
Departure
Patient Disposition: Admit
Date of Disposition: 02/03/24
Time of Disposition: 03:40
Admit to: Telemetry
Presentation/result/management discussed w/ accepting MD/DO: Hospitalist
Patient with high blood pressure during this ER visit?: Yes
Condition: Good
Discharge Problem:
Bleeding while on Xarelto
Instructions: Taking oral medicines for blood clots
Prescriptions:
No Action
atorvastatin [Lipitor] 80 mg Tablet
80 mg PO HS
therapeutic multivitamin Tablet
1 tab PO DAILY
calcium carbonate 500 mg calcium (1,250 mg) Tablet
500 mg PO DAILY
timolol 0.5 % Drops
1 drp BOTH EYES DAILY
pantoprazole [Protonix] 40 mg Tablet,Delayed Release (Dr/Ec)
40 mg PO BID
folic acid 1 mg Tablet
1 mg PO DAILY
midodrine 2.5 mg Tablet
2.5 mg PO DAILY
metoprolol tartrate 25 mg Tablet
12.5 mg PO DAILY
cholecalciferol (vitamin D3) [Vitamin D3] 50 mcg (2,000 unit) Tablet
50 mcg PO DAILY
Anoro Ellipta 62.5-25 mcg/actuation Blister With Device
1 inh INHALATION R DAILY
Xarelto DVT-PE Treat 30d Start 15 mg (42)- 20 mg (9) tablets,dose pack
See Rx Instructions .ROUTE .COMPLEX Qty: 51 0RF
Rx Instructions:
Take according to directions on package
Referrals:
[facility] [Outside]
NONE,* [Family Provider] -
Activity Restrictions/Additional Instructions:
Please return to the ER with any return of symptoms.
It was a pleasure meeting you and taking part in your care. We hope for your continued healing and wellness.
Please read discharge instructions in their entirety. However, they are for general education and may not describe your exact diagnosis at discharge. Information on your ER visit and medical conditions were discussed with you along with appropriate
follow up information...
If indicated, please take your medications as instructed and indicated on discharge paperwork.
Please schedule a follow up appointment as directed. Call to schedule an appointment
Please return to the emergency department with ANY change in, persisting, or worsening of symptoms. If any of your symptoms do not improve, or persist, or become more severe within 6-12 hours, please return to the emergency department for further
care.
Please return to the emergency department if you develop a headache, neck pain/stiffness, fever greater than 100.4F, chest pain, shortness of breath, persistent nausea, vomiting, slurred speech, difficulty walking, numbness/tingling, weakness, signs
of infection or any other symptoms that are worrisome to you.
If you have any questions or concerns please do not hesitate to call the Hospital at or E-mail me directly at [email or web address]
Interventions
Interventions:
*Risk Screen - Suicide Last Done: 02/02/24 22:09
*General Assessment Last Done: 02/02/24 22:09
*Neglect/Abuse Screening Last Done: 02/02/24 22:09
ED- Fall Risk Assessment Last Done: 02/03/24 00:41
*ED COVID-19 Vaccine History Last Done: 02/03/24 02:44
ED-Skin Assessment Last Done: 02/03/24 00:40
Discharge Date and Time
Print Language: DIVEHI
[2024-02-03 03:01] LABS: % Basophils 0.7 % (0-2); % Eosinophils 1.8 % (0-6); % Immature Granulocytes 0.3 % (0-0.5); % Lymphocytes 17.8 % (20.5-51.1); % Neutrophils 71.4 % (42.2-75.2); Absolute Basophils 0.1 10^3/uL (0-0.2); Absolute Eosinophils 0.1 10^3/uL (0-0.7); Absolute Lymphocytes 1.3 10^3/uL (1.2-3.4); Absolute Monocytes 0.6 10^3/uL (0.1-0.6); Absolute Neutrophils 5.1 10^3/uL (1.4-6.5); Hematocrit 27.7 % (37.0-47.0); Mean Corp Hgb Conc. 32.5 g/dL (33.0-37.0); Mean Corpuscular Hgb 27.4 pg (27.0-31.0); Mean Corpuscular Volume 84.5 fL (81.0-99.0); Mean Platelet Volume 10.1 fL (7.4-10.4); Nucleated Red Blood Cells % 0 %; Platelet Count 218 10^3/uL (130-400); Red Blood Cell Count 3.28 10^6/uL (4.20-5.40); Red Cell Dist. Width 16.2 % (11.5-14.5); White Blood Cell Count 7.1 10^3/uL (4.8-10.8)
[2024-02-03 03:12] LABS: INR 2.75; PT 29.5 Sec (11.4-14.6)
[2024-02-03 03:24] LABS: ALT (SGPT) 21 U/L (0-35); AST (SGOT) 28 U/L (14-36); Albumin 3.4 g/dl (3.5-5.0); Alkaline Phosphatase 89 U/L (38-126); Blood Urea Nitrogen 26 mg/dl (7-17); Calcium 9.8 mg/dl (8.4-10.2); Carbon Dioxide 31 mmol/L (22-30); Chloride 104 mmol/L (98-107); Glucose 118 mg/dl (70-99); Potassium 4.3 mmol/L (3.5-5.1); Sodium 137 mmol/L (135-145); Total Bilirubin 0.5 mg/dl (0.2-1.3); Total Protein 5.9 g/dl (6.3-8.2); eGFR 55.55
--- NOTE | 2024-02-03 04:00 | HPS.HSE ---
Addendum entered and electronically signed by Margo Garduno MD 02/03/24 06:45:
*blood consent was signed in ER
Original Note:
Family Physician
-
Family Physician: * NONE
Chief Complaint
-
bleeding
History of Present Illness
Ms. Meghna Renteria is a 83 yo woman with hx COPD, duodenal ulcer/GERD, CAD, orthostatic hypotension on midodrine, AAA rupture s/p repair, recent admission 01/15-01/19/24 for acute bilateral PE and DVT where she was initially started on IV heparin then
transitioned to Xarelto presents to the ER with mouth bleeding.
Patient was watching television when had acute bleeding from her mouth. Bleeding didn't stop and so was brought to the ER. Per ER physician it stopped for a couple of hours and plan was for discharge but she then had visible blood oozing out of
her mouth. No trauma to her mouth, no pain. No noticeable bleeding from nose. Patient last took Xarelto yesterday evening around 6-7 PM.
She states her breathing has been stable. No fevers/chills. No abdominal pain. No nausea/vomiting. + LE swelling. No chest pain.
Medical History
Past Medical History
Past Medical History: Reports Other
Additional Past Medical History:
COPD
Duodenal ulcer/GERD
Coronary artery disease
Orthostatic hypotension
AAA rupture status post repair
Pulmonary Embolism
DVT
Past Surgical History: Reports Other
Additional Past Surgical History:
AAA repair
Social History
Tobacco: Former Smoker (Smoked 1 pack/day for about 30 years, quit 24 years ago)
Alcohol: None
Drug: None
Family History
Family History: Not pertinent
Allergies / Home Medications
Allergies reflects when Allergies were last updated in [facility].
Home Medications with original date entered in [facility]
Allergy/Medication List:
Allergies
Allergy/AdvReac Type Severity Reaction Status Date / Time
No Known Allergies Allergy Verified 01/16/24 11:20
Home Medications
atorvastatin 80 mg tablet (Lipitor) 80 mg PO HS High Cholesterol 01/16/24
calcium carbonate 500 mg PO DAILY Supplement 01/16/24
cholecalciferol (vitamin D3) 50 mcg (2,000 unit) tablet (Vitamin D3) 50 mcg PO DAILY Supplement 01/16/24
folic acid 1 mg tablet 1 mg PO DAILY Supplement 01/16/24
metoprolol tartrate 25 mg tablet 12.5 mg PO DAILY Blood Pressure 01/16/24
midodrine 2.5 mg tablet 2.5 mg PO DAILY Blood Pressure 01/16/24
pantoprazole 40 mg tablet,delayed release (Protonix) 40 mg PO BID Gastrointestinal Issue 01/16/24
therapeutic multivitamin 1 tab PO DAILY Supplement 01/16/24
timolol 0.5 % eye drops 1 drp BOTH EYES DAILY Eye Condition 01/16/24
umeclidinium 62.5 mcg-vilanterol 25 mcg/actuation powdr for inhalation (Anoro Ellipta) 1 inh inhalation R DAILY Lung/Breathing Issues 01/16/24
rivaroxaban 15 mg (42)-20 mg (9) tablets in a starter pack (Xarelto DVT-PE Treatment 30-Day Starter) See Rx Instructions PO .COMPLEX #51 ea 01/19/24
Review of Systems
-
History Source: Patient
A 12 point ROS was completed and negative except as noted: Yes
Physical Exam
Vital Signs
Vital Signs
Temp Pulse Resp BP Pulse Ox
98.3 F 98 18 146/77 93
02/02/24 22:09 02/02/24 22:09 02/02/24 22:09 02/03/24 03:00 02/03/24 03:45
Physical Exam
General: No Apparent Distress
HEENT: PERRLA and Other (dry blood at corners of mouth; patient without dentures in. No visible active oozing in mouth; some dry blood in nares, wearing O2 )
Respiratory: Clear; No Wheezes
Cardiac: S1/S2 and Regular Rhythm
GI: Soft and Non Tender
Musculoskeletal: Edema, Left Lower Extremity and Edema, Right Lower Extremity
Skin: Warm and Dry; No Rash
Neuro: AO x 3
Psych: Calm
Laboratory Results
-
02/03/24 02:32
02/03/24 02:32
Laboratory Results
PT 29.5 Sec (11.4-14.6) H 02/03/24 02:32
INR 2.75 02/03/24 02:32
Total Bilirubin 0.5 mg/dl (0.2-1.3) 02/03/24 02:32
AST 28 U/L (14-36) 02/03/24 02:32
ALT 21 U/L (0-35) 02/03/24 02:32
Alkaline Phosphatase 89 U/L (38-126) 02/03/24 02:32
Data Reviewed
-
Diagnostic Radiology: Report Reviewed by me
Lab Data: Labs Reviewed by me
Impression/Plan
-
Ms. Meghna Renteria is a 83 yo woman with hx COPD, duodenal ulcer/GERD, CAD, orthostatic hypotension on midodrine, AAA rupture s/p repair, recent admission 01/15-01/19/24 for acute bilateral PE and DVT where she was initially started on IV heparin then
transitioned to Xarelto presents to the ER with mouth bleeding.
Triage VS: T 98.3, P 98, RR 18, BP 128/73, SpO2 95%
LABS: WBC 7.1, Hg 9.0, PLT 218, Na 137, K+ 4.3, Cl 104, CO2 31, BUN 26, Cr 1.0, Glucose 118
Acute Bleeding exacerbated by Xarelto Use
Bleeding in mouth without appreciable trauma on exam; 2/2 posterior epistaxis?
-given recurrence of bleeding in ER and patient has need for blood thinner, will admit to observation. ER physician described blood drooling down sides of mouth.
-ENT consult to locate area of bleeding
-keep NPO until seen by ENT
Recent PE/DVT on Xarelto
-hold Xarelto for now and place on IV heparin gtt given recent PE/DVT. Patient was on day of BID Xarelto before switching to once a day dosing
-IV heparin gtt to start at 7AM (12 hours after last Xarelto dose)
-stop heparin if significant bleeding
Hx Duodenal Ulcer/GERD
-INSTRUMENT OPERATOR PPI, Pepcid
CAD
Orthostatic Hypotension
-INSTRUMENT OPERATOR midodrine
COPD, chronic
-INSTRUMENT OPERATOR inhalers
AAA rupture s/p repair
HLD
-INSTRUMENT OPERATOR statin
DVT PPx heparin gtt
FULL CODE
[2024-02-03 06:16] LABS: Hematocrit 28.2 % (37.0-47.0); Hemoglobin 8.8 g/dL (12.0-16.0); Mean Corp Hgb Conc. 31.2 g/dL (33.0-37.0); Mean Corpuscular Hgb 26.9 pg (27.0-31.0); Mean Corpuscular Volume 86.2 fL (81.0-99.0); Mean Platelet Volume 9.8 fL (7.4-10.4); Platelet Count 207 10^3/uL (130-400); Red Blood Cell Count 3.27 10^6/uL (4.20-5.40); Red Cell Dist. Width 16.1 % (11.5-14.5); White Blood Cell Count 6.8 10^3/uL (4.8-10.8)
[2024-02-03 06:31] LABS: APTT 42.9 Sec (23.4-35.0)
[2024-02-03] MEDS: D5LR 1000 IV (06:43)
[2024-02-03] MEDS: HEPARIN 25000 UNITS/250 ML IV (06:44)
--- NOTE | 2024-02-03 06:50 | PTCARENOTE ---
Pt from ED- oriented to room and POC. Heparin drip initiated per order. Pt ANN o2 sat after ambulating to bathroom 88% placed 2 L NC, HR initially 120s, now at rest 100s. Will notify dayshift.
--- NOTE | 2024-02-03 09:14 | PTCARENOTE ---
Holding heparin per MD due to bleeding from mouth and throwing up a clot.
[2024-02-03 09:31] LABS: Glucose - Point of Care 113 mg/dl (70-99)
--- NOTE | 2024-02-03 10:12 | PTCARENOTE ---
BP 122/77 HR 115
--- NOTE | 2024-02-03 10:13 | PTCARENOTE ---
Approx 915 I was made aware that the pump was beeping for an occlusion. RN attempted to flush and it was occluded. At that time the patient was spitting up large amounts of blood and clots. MD Mills was notified and said to stop the heparin. IV
fluids continued. Another line was placed by IV team and the other line was fixed by IV team. The pt has a consult with ENT who has not been by to see her yet. Pt is AAx3 BP 122/77 HR 115 O2 97
Airway is patent, suction initiated to clear blood and clots.
[2024-02-03] MEDS: FOLVITE PO (10:54)
[2024-02-03] MEDS: LOPRESSOR PO (10:54)
[2024-02-03] MEDS: TIMOPTIC 0.5% OPHTHALMIC SOLUTION 1 DROP BOTH EYES (10:55)
[2024-02-03] MEDS: PROTONIX PO (10:55)
[2024-02-03] MEDS: ProAmatine PO (10:55)
--- NOTE | 2024-02-03 11:01 | CON.MD ---
Consultation - Medical
-
Pt seen and full consult dictated.
Pt admitted for severe oral bleeding from the right upper buccal membrane, at an area likely due to abrasion from dentures.
Sutures placed at bedside with control of bleeding.
Pt should be on liquid diet for the next 2 days, then a soft diet for 10 days.
Avoid dentures for 10 days.
She should f/u with us in the office in about 2 -3 weeks.
She may go home tomorrow AM if no significant bleeding
[2024-02-03 13:10] LABS: APTT 37.5 Sec (23.4-35.0)
--- NOTE | 2024-02-03 13:50 | W.PN.HOSP.TC ---
Today's Communication/Plan
-
stabilization of bleeding today
CLD
anticipate resuming hep ggt to trial tolerability tomorrow
Assessment / Plan
Assessment / Plan
Physical Exam
General: No Apparent Distress
HEENT: PERRLA and Other (dry blood at corners of mouth; patient without dentures in. No visible active oozing in mouth; some dry blood in nares, wearing O2 )
Respiratory: Clear; No Wheezes
Cardiac: S1/S2 and Regular Rhythm
GI: Soft and Non Tender
Musculoskeletal: Edema, Left Lower Extremity and Edema, Right Lower Extremity
Skin: Warm and Dry; No Rash
Neuro: AO x 3
Psych: Calm
Ms. Meghna Renteria is a 83 yo woman with hx COPD, duodenal ulcer/GERD, CAD, orthostatic hypotension on midodrine, AAA rupture s/p repair, recent admission 01/15-01/19/24 for acute bilateral PE and DVT where she was initially started on IV heparin then
transitioned to Xarelto presents to the ER with mouth bleeding.
Acute Bleeding exacerbated by Xarelto Use
Bleeding in mouth without appreciable trauma on exam; appears to be from right upper buccal membrane, likely abrasion from dentures
� Sutures placed at bedside with control bleeding
� Liquid diet for the next 2 days, then soft diet for 10 days
� Avoid dentures for 10 days
� Follow-up ENT in office in 2 to 3 weeks
� Hold on anticoagulation for today, trial resumption tomorrow a.m.
Recent PE/DVT on Xarelto
-hold Xarelto for now
-trial hep ggt tomorrow am
Hx Duodenal Ulcer/GERD
-UTILITY MANAGER PPI, Pepcid
CAD
Orthostatic Hypotension
-UTILITY MANAGER midodrine
COPD, chronic
-UTILITY MANAGER inhalers
AAA rupture s/p repair
HLD
-UTILITY MANAGER statin
DVT PPx SCDs
FULL CODE
Anticipated Discharge: 24 - 48 hours
Subjective/Interval History
-
Date of Service: February 03, 2024
upper molar/palate bleeding - sutured this am
Objective Data
-
Labs:
Laboratory Results
02/03/24 02/03/24 02/03/24
02:32 06:10 06:34
WBC 7.1 6.8
Hgb 9.0 L 8.8 L
Hct 27.7 L 28.2 L
Plt Count 218 207
PT 29.5 H
INR 2.75
APTT 42.9 H Cancelled
Sodium 137
Potassium 4.3
Chloride 104
Carbon Dioxide 31 H
BUN 26 H
Creatinine 1.0
Glucose 118 H
Calcium 9.8
Total Bilirubin 0.5
AST 28
ALT 21
Alkaline Phosphatase 89
02/03/24 02/03/24 02/03/24
12:35 14:00 22:00
WBC
Hgb Pending Pending
Hct
Plt Count
PT
INR
APTT 37.5 H
Sodium
Potassium
Chloride
Carbon Dioxide
BUN
Creatinine
Glucose
Calcium
Total Bilirubin
AST
ALT
Alkaline Phosphatase
Vital Signs:
Vital Signs
Temp Pulse Resp BP Pulse Ox
97.4 F 98 18 126/67 97
02/03/24 11:48 02/03/24 11:48 02/03/24 11:48 02/03/24 11:48 02/03/24 12:11
I&O
02/02/24 02/03/24 02/04/24
06:59 06:59 06:59
Intake Total 0 / 0
Balance 0 / 0
Review of Systems
-
History Source: Patient
All other systems: Not reviewed unless documented
Data Reviewed
-
Labs: Labs Reviewed by me
[2024-02-03 13:59] LABS: Hemoglobin 8.4 g/dL (12.0-16.0)
--- NOTE | 2024-02-03 19:06 | CM ---
met with patient and daughter at bedside.patient usually lives [place] in house in [place] but has been staying temporarily with her jessy lennon in house with no steps to enter,her bed and bath is up 3 steps.she ambulates with a walker and needs A
bathig,her pcp is dr gautam and she uses [facility] [address] [facility] [place].juaquin is current with [facility].she has been at [facility] in past.
patient with a recent adm of bl pe and dvt 01/15 to 01/18/24 is now adm with mouth bleeding on xarelto.she has an abrasion in mouth from dentures rubbing.dentures are out for 10 days and patient is on a liquid diet.monitor hgb.therapy will evaluate
patient .referral has been sent to [facility] for resumption of care.Plan dc home with daughter and [facility].
[2024-02-03] MEDS: LIPITOR 80 MG PO (21:41)
[2024-02-03] MEDS: PROTONIX 40 MG PO (21:41)
[2024-02-04 03:44] VITALS: BP 104/59
[2024-02-04 07:00] VITALS: BP 113/64
[2024-02-04] MEDS: FOLVITE 1 MG PO (08:13)
[2024-02-04] MEDS: PROTONIX 40 MG PO ×2 (08:13→20:34)
[2024-02-04] MEDS: TIMOPTIC 0.5% OPHTHALMIC SOLUTION 1 DROP BOTH EYES (08:14)
[2024-02-04] MEDS: LOPRESSOR 12.5 MG PO (08:14)
[2024-02-04] MEDS: ProAmatine 2.5 MG PO (08:14)
[2024-02-04 09:09] LABS: Blood Urea Nitrogen 22 mg/dl (7-17); Calcium 9.5 mg/dl (8.4-10.2); Carbon Dioxide 31 mmol/L (22-30); Chloride 104 mmol/L (98-107); Estimated Creatinine Clearance 34 ml/min; Glucose 90 mg/dl (70-99); Sodium 136 mmol/L (135-145); eGFR 49.55
[2024-02-04 10:02] LABS: Hematocrit 27.8 % (37.0-47.0); Hemoglobin 8.3 g/dL (12.0-16.0); Mean Corp Hgb Conc. 29.9 g/dL (33.0-37.0); Mean Corpuscular Hgb 26.8 pg (27.0-31.0); Mean Corpuscular Volume 89.7 fL (81.0-99.0); Platelet Count 226 10^3/uL (130-400); Red Cell Dist. Width 16.4 % (11.5-14.5); White Blood Cell Count 5.2 10^3/uL (4.8-10.8)
[2024-02-04] MEDS: HEPARIN 25000 UNITS/250 ML IV (10:21)
[2024-02-04] MEDS: MIRALAX 17 GRAMS PO (10:36)
[2024-02-04 11:00] VITALS: BP 112/65
--- NOTE | 2024-02-04 13:17 | W.PN.HOSP.TC ---
Today's Communication/Plan
-
trial hep ggt
Assessment / Plan
Assessment / Plan
Physical Exam
General: No Apparent Distress
HEENT: PERRLA and Other (dry blood at corners of mouth; patient without dentures in. No visible active oozing in mouth; some dry blood in nares, wearing O2 )
Respiratory: Clear; No Wheezes
Cardiac: S1/S2 and Regular Rhythm
GI: Soft and Non Tender
Musculoskeletal: Edema, Left Lower Extremity and Edema, Right Lower Extremity
Skin: Warm and Dry; No Rash
Neuro: AO x 3
Psych: Calm
Ms. Meghna Renteria is a 83 yo woman with hx COPD, duodenal ulcer/GERD, CAD, orthostatic hypotension on midodrine, AAA rupture s/p repair, recent admission 01/15-01/19/24 for acute bilateral PE and DVT where she was initially started on IV heparin then
transitioned to Xarelto presents to the ER with mouth bleeding.
Acute Bleeding exacerbated by Xarelto Use
Bleeding in mouth without appreciable trauma on exam; appears to be from right upper buccal membrane, likely abrasion from dentures
� Sutures placed at bedside with control of bleeding
� Liquid diet for the next 2 days (Day 1), then soft diet for 10 days
� Avoid dentures for 10 days
� Follow-up ENT in office in 2 to 3 weeks
� Resume Hep ggt as trial of anticoagulation - if stable, can restart xarelto tomorrow
Recent PE/DVT on Xarelto
-hold Xarelto for now
-trial hep ggt and monitor
Hx Duodenal Ulcer/GERD
-CREDIT REPORTING CLERK PPI, Pepcid
CAD
Orthostatic Hypotension
-CREDIT REPORTING CLERK midodrine
COPD, chronic
-CREDIT REPORTING CLERK inhalers
AAA rupture s/p repair
HLD
-CREDIT REPORTING CLERK statin
DVT PPx Hep ggt
FULL CODE
Anticipated Discharge: Within 24 hours
Subjective/Interval History
-
Date of Service: February 04, 2024
bleeding stopped, trial hep ggt
Objective Data
-
Labs:
Laboratory Results
02/04/24 02/04/24 02/04/24
06:41 09:06 09:35
WBC 5.2
Hgb 8.3 L
Hct 27.8 L
Plt Count 226
APTT 34.0
Sodium 136
Potassium 4.0
Chloride 104
Carbon Dioxide 31 H
BUN 22 H
Creatinine 1.1 H
Glucose 90
Calcium 9.5
02/04/24
16:20
WBC
Hgb
Hct
Plt Count
APTT Pending
Sodium
Potassium
Chloride
Carbon Dioxide
BUN
Creatinine
Glucose
Calcium
Vital Signs:
Vital Signs
Temp Pulse Resp BP Pulse Ox
97.5 F 83 16 112/65 98
02/04/24 11:00 02/04/24 11:00 02/04/24 11:00 02/04/24 11:00 02/04/24 11:00
I&O
02/03/24 02/04/24 02/05/24
06:59 06:59 06:59
Intake Total 0 / 0 720 / 720
Balance 0 / 0 720 / 720
Review of Systems
-
History Source: Patient
All other systems: Not reviewed unless documented
Data Reviewed
-
Labs: Labs Reviewed by me
[2024-02-04 15:29] VITALS: BP 119/63
[2024-02-04 18:18] LABS: APTT 104.8 Sec (23.4-35.0)
[2024-02-04 19:44] VITALS: BP 120/60
[2024-02-04] MEDS: LIPITOR 80 MG PO (20:34)
[2024-02-04 23:47] VITALS: BP 125/59
[2024-02-05 01:20] LABS: APTT > 200 Sec (23.4-35.0)
[2024-02-05 03:25] VITALS: BP 124/61
[2024-02-05 07:07] VITALS: BP 100/57
[2024-02-05] MEDS: NON-FORMULARY ITEM 1 UNIT INH (08:19)
[2024-02-05 08:25] LABS: Hematocrit 25.2 % (37.0-47.0); Hemoglobin 7.8 g/dL (12.0-16.0); Mean Corpuscular Hgb 26.8 pg (27.0-31.0); Mean Corpuscular Volume 86.6 fL (81.0-99.0); Mean Platelet Volume 10.9 fL (7.4-10.4); Platelet Count 187 10^3/uL (130-400); Red Blood Cell Count 2.91 10^6/uL (4.20-5.40); Red Cell Dist. Width 16.3 % (11.5-14.5); White Blood Cell Count 4.7 10^3/uL (4.8-10.8)
[2024-02-05] MEDS: LOPRESSOR 12.5 MG PO (08:46)
[2024-02-05] MEDS: PROTONIX 40 MG PO (08:46)
[2024-02-05] MEDS: ProAmatine 2.5 MG PO (08:46)
[2024-02-05] MEDS: FOLVITE 1 MG PO (08:46)
[2024-02-05] MEDS: TIMOPTIC 0.5% OPHTHALMIC SOLUTION 1 DROP BOTH EYES (08:46)
[2024-02-05] MEDS: XARELTO 15 MG PO (09:44)
--- NOTE | 2024-02-05 10:36 | W.PN.HOSP.TC ---
Addendum entered and electronically signed by Glenn Mills MD 02/05/24 14:10:
[id number]
Original Note:
Today's Communication/Plan
-
- Liquid diet for the next 2 days (Day 2), then soft diet for 10 days
� Avoid dentures for 10 days
� Follow-up ENT in office in 2 to 3 weeks
� Tolerated heparin drip, switch to Xarelto this morning
-CBC in 3-5 days with pcp
Assessment / Plan
Assessment / Plan
Physical Exam
General: No Apparent Distress
HEENT: PERRLA and Other (dry blood at corners of mouth; patient without dentures in. No visible active oozing in mouth; some dry blood in nares, wearing O2 )
Respiratory: Clear; No Wheezes
Cardiac: S1/S2 and Regular Rhythm
GI: Soft and Non Tender
Musculoskeletal: Edema, Left Lower Extremity and Edema, Right Lower Extremity
Skin: Warm and Dry; No Rash
Neuro: AO x 3
Psych: Calm
Ms. Meghna Renteria is a 83 yo woman with hx COPD, duodenal ulcer/GERD, CAD, orthostatic hypotension on midodrine, AAA rupture s/p repair, recent admission 01/15-01/19/24 for acute bilateral PE and DVT where she was initially started on IV heparin then
transitioned to Xarelto presents to the ER with mouth bleeding.
Acute Bleeding exacerbated by Xarelto Use
Bleeding in mouth without appreciable trauma on exam; appears to be from right upper buccal membrane, likely abrasion from dentures
� Sutures placed at bedside with control of bleeding - bleeding has subsided for almost 48 hours
� Liquid diet for the next 2 days (Day 2), then soft diet for 10 days
� Avoid dentures for 10 days
� Follow-up ENT in office in 2 to 3 weeks
� Tolerated heparin drip, switch to Xarelto this morning
Recent PE/DVT on Xarelto
-Tolerated heparin drip, transition back to Xarelto
Hx Duodenal Ulcer/GERD
-AUDOGRAPH OPERATOR PPI, Pepcid
CAD
Orthostatic Hypotension
-AUDOGRAPH OPERATOR midodrine
COPD, chronic
-AUDOGRAPH OPERATOR inhalers
AAA rupture s/p repair
HLD
-AUDOGRAPH OPERATOR statin
DVT PPx Xarelto
FULL CODE
More than 30 minutes spent in discharge including
Final examination of the patient
Summarizing hospital stay
Instructions for continuing care to all relevant caregivers
Preparation of discharge records, prescriptions, and referral forms
Total time spent (35 in minutes):
Anticipated Discharge: Today
Subjective/Interval History
-
Date of Service: February 05, 2024
Tolerated heparin drip, liquid diet, switch to Xarelto this morning
Objective Data
-
Labs:
Laboratory Results
02/05/24 02/05/24 02/05/24
00:09 07:27 09:30
WBC 4.7 L
Hgb 7.8 L
Hct 25.2 L
Plt Count 187
APTT > 200 H* Cancelled
Vital Signs:
Vital Signs
Temp Pulse Resp BP Pulse Ox
97.8 F 88 15 100/57 97
02/05/24 07:07 02/05/24 08:46 02/05/24 08:19 02/05/24 08:46 02/05/24 08:19
I&O
02/04/24 02/05/24 02/06/24
06:59 06:59 06:59
Intake Total 720 / 720 1000 / 1000
Output Total 100 / 100
Balance 720 / 720 900 / 900
Review of Systems
-
History Source: Patient
All other systems: Not reviewed unless documented
Data Reviewed
-
Labs: Labs Reviewed by me
--- NOTE | 2024-02-05 10:39 | W.DS.TRANS ---
DC Summary - [employer]
-
Discharge Instructions:
Discharge Diagnosis/Procedures Acute Bleeding exacerbated by Xarelto Use
Bleeding in mouth without appreciable trauma on
exam; appears to be from right upper buccal
membrane, likely abrasion from dentures
Diet Low Cholesterol,Low Fat
Additional Diets Pt should be on liquid diet for today, then a
soft diet for 10 days.
Avoid dentures for 10 days.
Activity As tolerated
Blood Work cbc in 3-5 days with pcp
Instructions:
Stand-Alone Forms:
Changes to Home Medications: No
Discharge Medications:
DC Medications w/original date entered in [facility]
atorvastatin 80 mg tablet (Lipitor) 80 mg PO HS High Cholesterol 01/16/24
calcium carbonate 500 mg PO DAILY Supplement 01/16/24
cholecalciferol (vitamin D3) 50 mcg (2,000 unit) tablet (Vitamin D3) 50 mcg PO DAILY Supplement 01/16/24
folic acid 1 mg tablet 1 mg PO DAILY Supplement 01/16/24
metoprolol tartrate 25 mg tablet 12.5 mg PO DAILY Blood Pressure 01/16/24
midodrine 2.5 mg tablet 2.5 mg PO DAILY Blood Pressure 01/16/24
pantoprazole 40 mg tablet,delayed release (Protonix) 40 mg PO BID Gastrointestinal Issue 01/16/24
therapeutic multivitamin 1 tab PO DAILY Supplement 01/16/24
timolol 0.5 % eye drops 1 drp BOTH EYES DAILY Eye Condition 01/16/24
umeclidinium 62.5 mcg-vilanterol 25 mcg/actuation powdr for inhalation (Anoro Ellipta) 1 inh inhalation R DAILY Lung/Breathing Issues 01/16/24
rivaroxaban 15 mg (42)-20 mg (9) tablets in a starter pack (Xarelto DVT-PE Treatment 30-Day Starter) See Rx Instructions PO .COMPLEX #51 ea 01/19/24
Home Medication Changes
na
Pending Results: No
[2024-02-05 11:37] VITALS: BP 107/46
--- NOTE | 2024-02-05 12:27 | CM ---
Pt for dc today. SW talked with daughter and pt at bedside.
Referral sent and accepted for [facility] with [facility].
No additional needs identified.
--- NOTE | 2024-02-05 12:55 | PTCARENOTE ---
Pt. returned to unit from IR.
== END 2024-02-05 13:27 | disposition home health service (06) ==
LOC: 4 EAST ACU 05:00
PROVIDERS: ADMITTING PHYSICIAN Student in an Organized Health Care Education/Training Program; ATTENDING PHYSICIAN Internal Medicine; EMERGENCY PHYSICIAN Student in an Organized Health Care Education/Training Program; OTHER PHYSICIAN Otolaryngology
DX: D68.32 Hemorrhagic disorder due to extrinsic circulating anticoagulants (principal); R58 Hemorrhage, not elsewhere classified; K13.79 Other lesions of oral mucosa; J44.9 Chronic obstructive pulmonary disease, unspecified; K21.9 Gastro-esophageal reflux disease without esophagitis; I95.1 Orthostatic hypotension; E78.5 Hyperlipidemia, unspecified; I25.10 Atherosclerotic heart disease of native coronary artery without angina pectoris; Z86.79 Personal history of other diseases of the circulatory system; Z86.711 Personal history of pulmonary embolism; Z79.01 Long term (current) use of anticoagulants; Z86.718 Personal history of other venous thrombosis and embolism; Z99.81 Dependence on supplemental oxygen; Z87.891 Personal history of nicotine dependence; Z87.11 Personal history of peptic ulcer disease
CPT/HCPCS: 80048; 80053; 82962; 83735; 85018; 85025; 85027; 85610; 85730; 97162; 97166; 99285; G0378

== ENCOUNTER → 2024-03-27 09:38 | Outpatient (REF) | payer OTHER, SELFPAY ==
[2024-03-27 09:54] VITALS: BP 129/73; BP_SYST 98
[2024-03-27 10:39] LABS: Body Fluid pH 7.48
[2024-03-27 10:59] LABS: Body Fluid Glucose 114 mg/dl; Body Fluid LDH 173 U/L; Body Fluid Protein 3.7 g/dl
[2024-03-27 11:08] LABS: Body Fluid Mononuclear 89.7 %; Body Fluid Polymorphonuclear 10.3 %; Body Fluid WBC 1373 /CUMM
[2024-03-27 11:12] LABS: Body Fluid Second Tech HB
== END ==
LOC: RADI 09:38
PROVIDERS: ATTENDING PHYSICIAN Internal Medicine Critical Care Medicine; FAMILY PHYSICIAN Student in an Organized Health Care Education/Training Program
DX: C80.1 Malignant (primary) neoplasm, unspecified (principal); J91.0 Malignant pleural effusion
CPT/HCPCS: 88305; 32555; 71045; 82945; 83615; 83986; 84157; 87015; 87070; 87102; 87116; 87205; 88112; 88341; 88342; 89051

== ENCOUNTER 2024-03-27 16:41 | Inpatient (IN) | payer OTHER, SELFPAY ==
[2024-03-27] VITALS (23 sets, daily range): BP systolic 85–186; BP diastolic 47–108; BMI 23.3; BMI 22.3
[2024-03-27 13:38] LABS: % Basophils 0.6 % (0-2); % Eosinophils 1.9 % (0-6); % Immature Granulocytes 0.3 % (0-0.5); % Lymphocytes 14.8 % (20.5-51.1); % Monocytes 7.8 % (1.7-9.3); % Neutrophils 74.6 % (42.2-75.2); Absolute Basophils 0.1 10^3/uL (0-0.2); Absolute Eosinophils 0.2 10^3/uL (0-0.7); Absolute Lymphocytes 1.3 10^3/uL (1.2-3.4); Absolute Monocytes 0.7 10^3/uL (0.1-0.6); Absolute Neutrophils 6.4 10^3/uL (1.4-6.5); Hematocrit 31.3 % (37.0-47.0); Hemoglobin 9.5 g/dL (12.0-16.0); Mean Corp Hgb Conc. 30.4 g/dL (33.0-37.0); Mean Corpuscular Hgb 24.4 pg (27.0-31.0); Mean Corpuscular Volume 80.3 fL (81.0-99.0); Mean Platelet Volume 9.8 fL (7.4-10.4); Nucleated Red Blood Cells % 0 %; Platelet Count 308 10^3/uL (130-400); Red Cell Dist. Width 16.8 % (11.5-14.5); White Blood Cell Count 8.6 10^3/uL (4.8-10.8)
--- NOTE | 2024-03-27 13:47 | ED.GENMED ---
History of Present Illness
General
Chief Complaint: Cough
Source: patient
Exam Limitations: none
Time Seen by Provider: 03/27/24 13:20
Nursing documentation reviewed up to this point in time: agreed with
History of Present Illness
History of Present Illness:
Patient with history of COPD and recently diagnosed with PE on Xarelto and home oxygen, presents to ED secondary to coughing up blood, shortly after receiving outpatient scheduled thoracentesis. Per patient and family, thoracentesis was performed
as scheduled, without any complications. Patient had no discomfort when she left the hospital. Denies nausea or vomiting. Denies chest pain. Denies back pain.
Review of Systems
Review of Systems
Allergies reviewed?: Yes
All Other Systems: ROS reviewed and negative except as documented in HPI and ROS
Constitutional: Reports no symptoms; Denies fever
EENT: Reports no symptoms; Denies sore throat
Respiratory: Reports cough and trouble breathing
Cardiac: Reports no symptoms
ABD/GI: Reports no symptoms
Musculoskeletal: Reports no symptoms
Skin: Reports no symptoms
Neurological: Reports no symptoms
Phy Exam
Physical Exam
Physical Exam:
Physical Exam
General: mild respiratory distress, not acutely ill. afebrile
Head: nc/at. eomi
Neck: supple. no meningeal signs. normal posterior pharynx
Heart: s1/s2 regular rate and rhythm, no murmur. equal radial pulses.
Lungs: mild respiratory distress. diminished breath sounds bilaterally
Abdomen: normal bowel sounds. not tender.
Neuro: alert and oriented. no focal neurological deficits
Skin: no rash
Psychiatric: well kept. interactive and cooperative
Extremities: no edema. no calf tenderness.
Course
Orders/Labs/Results
Orders:
Orders
03/27/24 Breakfast
Cholesterol Lowering
At Your Request: Full Participation
Cholesterol Lowering: Sodium, 2 Gram
03/27/24 13:20
CR Chest Portable - 1 View Urgent
Comment:
Reason For Exam: cough/sob/hypoxia
Reason Study Needs to be Portable: Patient Unstable
03/27/24 13:28
Cardiac Monitoring- Treatment ONCE
IV Insert/Care/Rem.- Treatment PRN
O2 Therapy [RESP] Urgent
Titrate/Wean O2 to maintain O2 sat greater than (%): 93
Special Instructions: MAINTAIN CONTINOUS O2 SATS > OR = 93%
Pulse Ox/spot Check [RESP] Urgent
Quantity: 1
Special Instructions: ON ROOM AIR
03/27/24 13:30
Type+Screen Urgent
Complete Blood Count/With Diff Urgent
Comprehensive Metabolic Panel Urgent
Ferritin Urgent
Folate Urgent
Comment: IRON,TIBC,FERRITIN,B12,FOLATE ADDED ON BY FLOOR 4PM 03-27-24
Iron Urgent
Magnesium Urgent
Comment: ADD ON
PTT Urgent
Prothrombin Time Urgent
Total Iron Binding Urgent
Vitamin B12 Urgent
03/27/24 13:32
CT Chest With Iv Contrast Urgent
Comment:
Reason For Exam: Hemoptysis after thoracentesis.
03/27/24 15:59
Add On- LAB Routine
Tests Added?: iron, tibc, ferritin, % sat, B12, Folate
03/27/24 16:03
Prothrombin Complex(Pcc),Human [Kcentra] 1,600 unit Empty Viaflex Container 100 ml [Viaflex Empty Container] 0 ml IV NOW
Does patient have a dx of serious acute active bleeding?: Yes
Does patient have prior history of HIT?: No
03/27/24 16:24
CefTRIAXone [Rocephin] 1,000 mg IV NOW STA
Dexamethasone Sod Phosphate [Decadron] 10 mg IV NOW STA
Doxycycline Hyclate [Vibramycin] 100 mg 0.9% Sodium Chloride 250 ml [Nss] 250 ml IV NOW
Sterile Water [Sterile Water For Injection] 10 ml IV NOW STA
03/27/24 16:25
EKG [Electrocardiogram (*1)] Stat
Reason for Study: Tachycardia
CR Chest Portable - 1 View Stat
Comment:
Reason For Exam: sob
Reason Study Needs to be Portable: Unable to Transport
03/27/24 16:31
Admit/Transfer Patient As Directed
Co-Sign Provider:
Level of Care: Inpatient admission
Assign to:: ICU
Physician / Group: [place]
Diagnosis: COPD exacerbation
Reason for Hospitalization: COPD exacerbation
Expected length of stay greater than two midnights?: Yes
ELOS- Estimated Length of Stay in days: 3
I certify the patient meets the requirements for IP care: Yes
03/27/24 16:32
Code Status As Directed
Resuscitation Status: Full Code
03/27/24 17:07
Activity As Directed
Activity Level: As Tolerated
Intake/ Output As Directed
Frequency: Per unit guidelines
Pneumatic Compression Sleeves As Directed
Type: Knee high
Vital Signs As Directed
Frequency: Per unit guidelines
Copd Education [RESP] Routine
Pt Eval And Treat Routine
Activity Level: As Tolerated
DX Deep Vein Thrombosis Video Routine
03/27/24 18:00
Metoprolol [Lopressor] 12.5 mg PO QPM
Pantoprazole [Protonix] 40 mg PO QPM
03/27/24 18:02
H&H Q6H
03/27/24 22:00
Atorvastatin [Lipitor] 80 mg PO HS
03/28/24 00:00
Dexamethasone Sod Phosphate [Decadron] 6 mg IV Q6H
03/28/24 01:41
H&H Q6H
03/28/24 07:27
Basic Metabolic Panel IN AM
Complete Blood Count/With Diff IN AM
03/28/24 07:30
H&H Q6H
03/28/24 08:00
Doxycycline Hyclate [Vibramycin] 100 mg 0.9% Sodium Chloride 250 ml [Nss] 250 ml IV Q12H
Midodrine [ProAmatine] 2.5 mg PO DAILY
Timolol Maleate 0.5% [Timoptic 0.5% Ophthalmic Solution] See Dose Instructions BOTH EYES DAILY
03/28/24 16:00
CefTRIAXone [Rocephin] 1,000 mg IV Q24H
03/29/24 06:00
Basic Metabolic Panel IN AM
Complete Blood Count/With Diff IN AM
03/30/24 06:00
Basic Metabolic Panel IN AM
Complete Blood Count/With Diff IN AM
03/31/24 06:00
Basic Metabolic Panel IN AM
Complete Blood Count/With Diff IN AM
04/01/24 06:00
Basic Metabolic Panel IN AM
Complete Blood Count/With Diff IN AM
Abnormal Lab Results
03/27/24
13:30
RBC 3.90 L 10^6/uL
(4.20-5.40)
Hgb 9.5 L g/dL
(12.0-16.0)
Hct 31.3 L %
(37.0-47.0)
MCV 80.3 L fL
(81.0-99.0)
MCH 24.4 L pg
(27.0-31.0)
MCHC 30.4 L g/dL
(33.0-37.0)
RDW 16.8 H %
(11.5-14.5)
Absolute Monos (auto) 0.7 H 10^3/uL
(0.1-0.6)
Lymphocytes % 14.8 L %
(20.5-51.1)
PT 29.1 H Sec
(11.4-14.6)
APTT 41.5 H Sec
(23.4-35.0)
Carbon Dioxide 34 H mmol/L
(22-30)
BUN 20 H mg/dl
(7-17)
Glucose 124 H mg/dl
(70-99)
Iron 33 L ug/dl
(37-170)
% Saturation 11 L %
(20-50)
Folate > 20.0 H ng/ml
(2.76-20)
Crossmatch IS Only See Detail
03/27/24 13:30
03/27/24 13:30
Vital Signs
Initial and Last Documented VS:
Initial Vital Signs
Temp Pulse Resp BP Pulse Ox
98.1 F 109 22 110/77 86
03/27/24 13:12 03/27/24 13:12 03/27/24 13:12 03/27/24 13:12 03/27/24 13:12
Last Documented Vital Signs
Temp Pulse Resp BP Pulse Ox
97.8 F 77 17 124/67 97
03/28/24 11:00 03/28/24 12:00 03/28/24 12:00 03/28/24 12:00 03/28/24 12:36
MDM/Problems Addressed
MDM/Problems Addressed:
H&H stable. Patient remains hemodynamically stable, without any further episodes of hemoptysis. CT chest unfortunate reveals hematoma with what appears to be after bleed.
Discussed with , pulmonary, who will come and evaluate patient in ED. Will determine possible use of Kcentra afterwards.
Pt will be admitted to ICU for further evaluation and treatment.
Pt evaluated by in ED. Decision made to administer Kcentra in ED urgently.
*Critical Care Note
Total Time (30-74mins, 75-104mins- exclusive of procedures): 40 min
ED Attending Note
-
Portions of this chart may have been created with voice recognition software.� Occasional wrong word or��sound alike� substitutions may have occurred due to the inherent limitations of voice recognition software.
Discharge Plan
Departure
Patient Disposition: Admit
Date of Disposition: 03/27/24
Time of Disposition: 15:42
Admit to: ICU
Presentation/result/management discussed w/ accepting MD/DO: Hospitalist
Discharge Problem:
Hemoptysis
Interventions
Interventions:
*Risk Screen - Suicide Last Done: 03/27/24 13:12
*General Assessment Last Done: 03/27/24 13:12
*Neglect/Abuse Screening Last Done: 03/27/24 13:12
ED- Fall Risk Assessment Last Done: 03/27/24 13:35
*ED COVID-19 Vaccine History Last Done: 03/27/24 13:35
*Nursing Disposition Last Done: 03/27/24 17:14
ED- Pulmonary Assessment Last Done: 03/27/24 13:34
Discharge Date and Time
Discharge Date/Time: 03/27/24 17:15
[2024-03-27 13:48] LABS: INR 2.75; PT 29.1 Sec (11.4-14.6)
[2024-03-27 13:49] LABS: APTT 41.5 Sec (23.4-35.0)
[2024-03-27 14:06] LABS: ALT (SGPT) 16 U/L (0-35); AST (SGOT) 33 U/L (14-36); Albumin 3.5 g/dl (3.5-5.0); Alkaline Phosphatase 99 U/L (38-126); Blood Urea Nitrogen 20 mg/dl (7-17); Calcium 9.9 mg/dl (8.4-10.2); Carbon Dioxide 34 mmol/L (22-30); Chloride 99 mmol/L (98-107); Estimated Creatinine Clearance 37 ml/min; Glucose 124 mg/dl (70-99); Potassium 4.6 mmol/L (3.5-5.1); Sodium 137 mmol/L (135-145); Total Bilirubin 0.5 mg/dl (0.2-1.3); Total Protein 6.3 g/dl (6.3-8.2); eGFR 55.21
--- NOTE | 2024-03-27 15:46 | HPS.HSE ---
Addendum entered and electronically signed by Gracie Gil MD 03/27/24 16:43:
see my update note for addendum
Original Note:
Family Physician
-
Family Physician: NOT KNOW UNKNOWN - PT DOES
Chief Complaint
-
hemoptysis
History of Present Illness
84 year old with PMH for COPD, PE presented to us with hemoptysis . she had thoracentesis today. As soon as she got home she started coughing up bloody sputum. patient uses 2l oxygen baseline. denied chest pain. complaining of sob. denied
CHILDERS,dizzy or syncopal episode.denied fever, chills. denied abdominal pain, n,v.d. denied dysuria or hematuria.
chest CT with Approximately 5 cm hematoma with central enhancement consistent with active hemorrhage in the superior segment of the right lower lobe. As above, this is at the level of FDG avid mass which was seen on the PET CT 03/22/2024. The
position of this is more medial and superior than would be expected for hemorrhage related to thoracentesis. In addition to this, there is no pneumothorax. An alternate consideration is hemorrhage related to abnormal vessel at this level secondary
to the neoplasm in combination with anticoagulation and coughing following the thoracentesis procedure.
2. Additional right lower lobe consolidation related to the hemorrhage as above with very small increased attenuation right pleural effusion compatible with hemothorax.
3. Mediastinal and right suprahilar lymphadenopathy related to metastasis as seen on previous PET/CT. 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
4. Emphysema.
5. Thyromegaly as seen prior.
Medical History
Past Medical History
Past Medical History: Reports Other
Additional Past Medical History:
Right lung mass
COPD
Anemia
DVT
GI bleed
Past Surgical History: Reports Other
Additional Past Surgical History:
AAA repair
Social History
Tobacco: Former Smoker
Alcohol: None
Drug: None
Family History
Family History: Not pertinent
Allergies / Home Medications
Allergies reflects when Allergies were last updated in [employer].
Home Medications with original date entered in [employer]
Allergy/Medication List:
Allergies
Allergy/AdvReac Type Severity Reaction Status Date / Time
No Known Allergies Allergy Verified 01/16/24 11:20
Home Medications
atorvastatin 80 mg tablet (Lipitor) 80 mg PO HS High Cholesterol 01/16/24
cholecalciferol (vitamin D3) 50 mcg (2,000 unit) tablet (Vitamin D3) 50 mcg PO DAILY Supplement 01/16/24
folic acid 1 mg tablet 1 mg PO DAILY Supplement 01/16/24
metoprolol tartrate 25 mg tablet 12.5 mg PO QPM Blood Pressure 01/16/24
midodrine 2.5 mg tablet 2.5 mg PO DAILY Blood Pressure 01/16/24
pantoprazole 40 mg tablet,delayed release (Protonix) 40 mg PO QPM Gastrointestinal Issue 01/16/24
umeclidinium 62.5 mcg-vilanterol 25 mcg/actuation powdr for inhalation (Anoro Ellipta) 1 inh inhalation R DAILY Lung/Breathing Issues 01/16/24
calcium carbonate (Calcium 600) 600 mg PO DAILY 03/27/24
nmnwhlgorxxz-ahngxunl-erhtpn tablet 1 tab PO DAILY 03/27/24
polyethylene glycol 3350 17 gram oral powder packet (Miralax) 0 g PO DAILY PRN constipation 03/27/24
rivaroxaban 20 mg tablet (Xarelto) 20 mg PO DAILY 03/27/24
timolol maleate 0.5 % eye drops 1 drp BOTH EYES DAILY 03/27/24
Review of Systems
-
Constitutional: Reports No Symptoms
EENT: Reports No Symptoms
Respiratory: Reports Hemoptysis and Trouble Breathing
Cardiac: Reports No Symptoms
Abdomen/GI: Reports No Symptoms
: Reports No Symptoms
Musculoskeletal: Reports No Symptoms
Skin: Reports No Symptoms
Neurological: Reports No Symptoms
Endocrine: Reports No Symptoms
Hematologic/Lymphatic: Reports No Symptoms
Psych: Reports No Symptoms
Physical Exam
Vital Signs
Vital Signs
Temp Pulse Resp BP Pulse Ox
98.1 F 104 17 140/87 96
03/27/24 13:12 03/27/24 14:30 03/27/24 14:30 03/27/24 14:30 03/27/24 14:30
Physical Exam
General: Well Developed, Well Nourished and No Apparent Distress
HEENT: NormoCephalic, Moist mucous membranes and Atraumatic
Respiratory: Wheezes and Rales
Cardiac: S1/S2 and Regular Rhythm; No Murmur or Rub
GI: Soft, Non Tender, Non Distended and Normal Bowel Sounds; No Organomegaly
Rectal: Deferred by Provider
Musculoskeletal: No Clubbing, No Cyanosis and No Edema
Skin: No Rash
Neuro: AO x 3 and Nonfocal/grossly intact
Psych: Calm
Laboratory Results
-
03/27/24 13:30
03/27/24 13:30
Laboratory Results
PT 29.1 Sec (11.4-14.6) H 03/27/24 13:30
INR 2.75 03/27/24 13:30
APTT 41.5 Sec (23.4-35.0) H 03/27/24 13:30
Total Bilirubin 0.5 mg/dl (0.2-1.3) 03/27/24 13:30
AST 33 U/L (14-36) 03/27/24 13:30
ALT 16 U/L (0-35) 03/27/24 13:30
Alkaline Phosphatase 99 U/L (38-126) 03/27/24 13:30
Data Reviewed
-
CT Scan: Report Reviewed by me
Lab Data: Labs Reviewed by me
Impression/Plan
-
#hemoptysis/coughing likely from hematoma vs active bleeding/lung mass
-hgb stable at 9.5
-ctm
-chest CT with Approximately 5 cm hematoma with central enhancement consistent with active hemorrhage in the superior segment of the right lower lobe. As above, this is at the level of FDG avid mass which was seen on the PET CT 03/22/2024. The
position of this is more medial and superior than would be expected for hemorrhage related to thoracentesis. In addition to this, there is no pneumothorax. An alternate consideration is hemorrhage related to abnormal vessel at this level secondary
to the neoplasm in combination with anticoagulation and coughing following the thoracentesis procedure. Additional right lower lobe consolidation related to the hemorrhage as above with very small increased attenuation right pleural effusion
compatible with hemothorax. Mediastinal and right suprahilar lymphadenopathy related to metastasis as seen on previous PET/CT. 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 Emphysema. Thyromegaly as seen prior.
-giving Kcentra now
-continue to monitor h&H every 6 hours
-transfuse if hgb less than 7
-blood consent signed
-[employer] following
#acute on chronic hypoxic respiratory failure
-Pneumonia
-COPD exacerbation
-uses 2l baseline, at present 92 at 4l
-continue supplemental oxygen to keep sat>92
-wean as tolerated
-Decadron 10 Mg IV now
-Continue Decadron 6 Mg every 6 hours
-Ceftriaxone and Doxy continued
-Repeat portable x-ray
-[employer] Teacher following
#recent PE
-Hold Xarelto
Hx Duodenal Ulcer/GERD
-Protonix continued
# Hypertension
-Metoprolol continued
Orthostatic Hypotension
-SPINNING MACHINE OPERATOR midodrine
AAA rupture s/p repair
HLD
-SPINNING MACHINE OPERATOR statin
DVT PPx SCDs
FULL CODE
--- NOTE | 2024-03-27 16:16 | CON.INTV ---
Addendum entered and electronically signed by Abraham Thomas MD 03/27/24 16:45:
Per discussion with daughter, patient does have advanced directive which she which she does not want mechanical ventilation, CPR
Patient also stated that she would not want mechanical ventilation, CPR in the setting of a terminal event.
However, per discussion with primary service, patient would like to maintain full code at this time
Reviewed with primary service
Original Note:
Consultation
Consultation Request
Date/Time Consultation Requested: 03/27
Date/Time Consultation Performed: 03/27
Reason for Consultation: Critical care
Medical History
-
History of Present Illness:
History obtained from the patient, reviewing both outpatient and inpatient records and from daughter at bedside. Patient is an 84-year-old female with complex medical history. She was hospitalized in December where she developed bilateral PE, left
lower extremity DVT. She also was noted to have enlarged adenopathy, spiculated right lower lobe nodule 1.7 cm and a right upper lobe nodule. There is severe emphysema at that time. She apparently had at 1 point bleeding in her mouth for unclear
reasons. This resolved on its own. Patient was advised to see ENT. She had follow-up imaging which showed a moderate to large right pleural effusion for which she underwent diagnostic and therapeutic thoracentesis today for concern regarding
cancer. Plan was to eventually evaluate in the office and pursue repeat imaging, planning for biopsy given suspicion for underlying malignancy. She went home after her thoracentesis, had some mild right shoulder discomfort at the end of the
thoracentesis. 2 hours later, she proceeded to expectorate bright red blood. Presently she appears mildly short of breath, but she denies this. She has some left abdominal discomfort intermittently over the past few weeks. Her appetite is
worsened over the past few weeks and she has become more fatigued in the interim. Upon arrival to [facility], she is found to have pulse 109, breathing at 22, blood pressure 110/77, 86% saturation. CT chest showed resolution of her right
pleural effusion. She has alveolar process in the right lower lobe with what appears to be a hematoma in the lung. We are asked to comment on her pulmonary critical care process. Daughter was present at the bedside to corroborate above
.
PMH: COPD/emphysema, chronic kidney disease, coronary disease, history of syncope followed by cardiology at [place], treated for orthostatic hypotension. History of PE December 2023 on anticoagulation. History of oral bleeding thought to be secondary
to dentures status post ENT evaluation January 2024. History of pulm nodules, worrisome for malignancy
Past Medical History
Past Medical History: None (See above)
Past Surgical History: None (See above)
Social History
Tobacco: Former Smoker ([id number]-[id number], quit 1989)
Alcohol: None
Drug: None
Personal: Single
Living: With Family (Presently living with her daughter over the past few months)
Employment: Retired
Family History
Family History: Other (No clear family history of cancer or blood clots)
Allergies / Home Medications
Allergies
Allergy/AdvReac Type Severity Reaction Status Date / Time
No Known Allergies Allergy Verified 01/16/24 11:20
Home Medications
�Medication �Instructions �Recorded �Confirmed �Last Taken �Type
atorvastatin 80 mg tablet (Lipitor) 80 mg PO HS High Cholesterol 01/16/24 03/27/24 03/26/24 History
cholecalciferol (vitamin D3) 50 50 mcg PO DAILY Supplement 01/16/24 03/27/24 03/27/24 History
mcg (2,000 unit) tablet (Vitamin
D3)
folic acid 1 mg tablet 1 mg PO DAILY Supplement 01/16/24 03/27/24 03/27/24 History
metoprolol tartrate 25 mg tablet 12.5 mg PO QPM Blood Pressure 01/16/24 03/27/24 03/26/24 History
midodrine 2.5 mg tablet 2.5 mg PO DAILY Blood Pressure 01/16/24 03/27/24 03/27/24 History
pantoprazole 40 mg tablet,delayed 40 mg PO QPM Gastrointestinal Issue 01/16/24 03/27/24 03/26/24 History
release (Protonix)
umeclidinium 62.5 mcg-vilanterol 1 inh inhalation R DAILY 01/16/24 03/27/24 03/27/24 History
25 mcg/actuation powdr for Lung/Breathing Issues
inhalation (Anoro Ellipta)
calcium carbonate (Calcium 600) 600 mg PO DAILY 03/27/24 03/27/24 03/27/24 History
iijqyzmkczos-jutyeofq-vagwmm tablet 1 tab PO DAILY 03/27/24 03/27/24 03/27/24 History
polyethylene glycol 3350 17 gram 0 g PO DAILY PRN constipation 03/27/24 03/27/24 3 Days Ago History
oral powder packet (Miralax) ~03/24/24
rivaroxaban 20 mg tablet (Xarelto) 20 mg PO DAILY 03/27/24 03/27/24 03/27/24 History
timolol maleate 0.5 % eye drops 1 drp BOTH EYES DAILY 03/27/24 03/27/24 03/27/24 History
Review of Systems
Vitals / Labs / Diagnostic Testing
Vital Signs
Temp Pulse Resp BP Pulse Ox
98.1 F 148 34 186/105 92
03/27/24 13:12 03/27/24 16:15 03/27/24 16:15 03/27/24 16:00 03/27/24 16:15
Lab Data
03/27/24 13:30
03/27/24 13:30
Laboratory Results
03/27/24
13:30
PT 29.1 H
INR 2.75
APTT 41.5 H
Diagnostic Testing:
Physical Exam
-
HEENT: Normocephalic, Anicteric and Other (Dentures)
Cardiovascular: S1/S2, Regular Rhythm (Tachycardic), Murmur (n), Peripheral Edema (Trace) and Calf Tenderness (n)
Respiratory: Wheeze (few), Rales (n), Rhonchi (few audible), Accessory Resp Muscle Use (Mild use of accessory muscles with conversation), Other (Decreased breath sounds right base) and Other (There is no tracheal shift)
GI: Soft, Non Distended and Non Tender
Neurology: Awake, Alert, Oriented and No Motor Deficits (Moves all extremities)
Skin: Other (No clubbing, cyanosis)
General: Respiratory Distress (Mild)
Assessment
-
84-year-old female with history of significant COPD, severe emphysema per imaging, history of GERD/duodenal ulcer, coronary disease with history of abdominal aortic aneurysm rupture status postrepair, orthostatic hypotension, history of PE December
2023 on anticoagulation, presents with acute hemoptysis after thoracentesis earlier this morning. Patient has had outpatient imaging worrisome for underlying malignancy. We are asked to help from critical care standpoint
Acute hemoptysis
Less than 50 cc
Intra-pulmonary parenchymal hematoma
Suspected related to underlying pulmonary mass/nodule
Worrisome for malignant process
Right lower lobe alveolar process, likely from bleeding
Large right pleural effusion
s/p right thoracentesis 03/27
1 L of dark fluid removed
Resolved on repeat imaging
Multiple pulm nodules, subcarinal mass
Progressive per imaging
Abnormal PET scan worrisome for malignancy 03/22/2024
Conditions present prior to admission
Mild aortic stenosis, moderate pulm hypertension
PA pressure 58
Normal biventricular function per echo 01/17/2024
Anemia
History of GERD/peptic ulcer disease
Coronary disease
History of AAA repair
Orthostatic hypotension
Hypertension/hyperlipidemia
Plan/recommendations
At this time, patient is critically ill
Although she is denying any shortness of breath or limitations at this time, she appears to be in mild respiratory distress
Chest exam with decreased breath sounds right base, no tracheal shift
Tachycardia in the 150s noted
History of mild , moderate pulm hypertension noted
Normal biventricular function per echo December [address] chest and PET scan and prior CT imaging at length with patient and daughter
Reviewed images
I am concerned that she has progressive cancer
I am concerned that underlying tumor in the lung may be bleeding
Hematoma noted. I do not think this is related to her thoracentesis. She may have had some mild reexpansion effect possibly exacerbating oozing/bleeding
Moving forward
Reverse anticoagulation. Kcentra provided. Reviewed with ED staff
Head of bed elevated, right side down if able
Patient is at risk for respiratory deterioration. Reviewed at length potential need for intubation and mechanical ventilation
Given her severity of her underlying lung disease, suspicion for underlying tumor which is actively bleeding, do not think she would be liberated from the ventilator.
I reviewed with both her and her daughter that this may be a terminal event
Tachycardia is also problematic
Repeat chest x-ray, repeat hemoglobin
Maintain active type and screen
Empiric steroids, antibiotics for possible pneumonia
Continue with ipratropium every 6h, and as needed
Will avoid beta agonist therapy at this time
Do not feel that repeat imaging or CT angiogram is helpful in this case as a suspect that if this is due to underlying malignancy, catheter directed coil embolization is potentially futile
This will be an ongoing discussion with interventional radiology
Reviewed at length with critical care nursing, ED staff, primary service, patient and daughter at bedside
TCCT 77 min
[2024-03-27] MEDS: KCENTRA 60 UNIT IV (16:19)
[2024-03-27 16:37] LABS: Iron 33 ug/dl (37-170)
--- NOTE | 2024-03-27 16:42 | W.PN.UPDATE ---
Update Note
Progress Note Update
I saw and examined the patient.
The THROUGH FREIGHT ENGINEER Harvey's note was reviewed and I agree with the note.
Comment: briefly, Patient is an 84 y/o F, hx of COPD, hx of PUD, CAD, orthostasis on midodrine, recent admission in December for acute PE/DVT on Xarelto, hx of AAA s/p repair presents to ER with hemoptysis. She underwent scheduled outpatient right
sided thoracentesis earlier today without any complications; 800 cc of dark serosanguineous pleural fluid was removed. Thoracentesis was performed with R sided effusion and know R FDG avid mass seen on PET imaging 1 week prior.
in ER, urgent CT Chest showed 5 cm hematoma with central enhancement consistent with active hemorrhage in the superior segment of the right lower lobe.
Exam
General: Well Developed, Well Nourished and No Apparent Distress
HEENT: NormoCephalic, Moist mucous membranes and Atraumatic
Respiratory: Wheezes and Rales, labored breathing
Cardiac: S1/S2, tachycardia; No Murmur or Rub
GI: Soft, Non Tender, Non Distended and Normal Bowel Sounds; No Organomegaly
Rectal: Deferred by Provider
Musculoskeletal: No Clubbing, No Cyanosis and No Edema
Skin: No Rash
Neuro: AO x 3 and Nonfocal/grossly intact
Psych: Calm
Assessment:
Acute hypoxic respiratory insufficiency on 4L NC
- monitor O2
5 cm hematoma with central enhancement consistent with active hemorrhage in the superior segment of the right lower lobe
- at the level of FDG avid mass which was seen on the PET CT 03/22/2024
- likely related to mass/hemorrhaged vessel; no pneumothorax
- right lower lobe consolidation related to the hemorrhage as above with very small increased attenuation right pleural effusion compatible with hemothorax
- ICU admit.
- hold Xarelto
- urgently give K-Centra
- Decadron 10mg now then 6mg q6h
- Start Rocephin/Doxy, day 1, for empiric CAP coverage
- Pulmonary evaluation appreciated
Right sided pulmonary mass
- PET last week showed 2.1 cm solid pulmonary nodule in the right lower lobe with an SUV max of 6.2. multiple hypermetabolic pleural soft tissue nodules in the right hemithorax. Soft tissue nodularity along the right anterior pleural surface with an
SUV max of 5.8 and 4.7. Additional pleural soft tissue nodularity at the inferior aspect of the right hemithorax with an SUV max of up to 4.8. Right suprahilar lymph nodes versus additional pleural nodules with an SUV max of 7.2.
- follow up pathology of fluid
- OP Oncology followup
LLE DVT with bilateral PE diagnosed 12/2023
- holding Xarelto for active bleeding
Chronic anemia most likely related to malignancy
- check anemia indices
Hx Duodenal Ulcer/GERD
- continue PPI
HLD
CAD
- continue statin/BB
Hx of orthostatic hypotension
- continue midodrine
COPD
CKD stage 3b
AAA rupture s/p repair
DVT ppx: SCDs
Code: Full code confirmed with family
Total Critical Care Time 44 minutes. I was immediately available to the patient and staff. I personally examined, reviewed labs, diagnostic images/reports, interpretations, treatment plans, discussed patient care with other providers and family
or caregivers (if patient is unable to make decisions), entered orders as appropriate and documented the medical record.
[2024-03-27] MEDS: DECADRON 10 MG IV (16:44)
[2024-03-27] MEDS: ROCEPHIN 1000 MG IV (16:44)
[2024-03-27] MEDS: STERILE WATER FOR INJECTION 10 ML IV (16:44)
[2024-03-27 16:46] LABS: Percent Saturation 11 % (20-50); Total Iron Binding Capacity 292 ug/dl (265-497)
[2024-03-27 17:24] LABS: Ferritin 24.4 ng/ml (11.1-264.0)
--- NOTE | 2024-03-27 17:36 | PTCARENOTE ---
Received pt from ed in mild resp distress with heart rate in 150s, pt denies cp/sob. rr 30s, Dr Thomas at bedside. Wanted to try pt on venti mask for comfort and if no improvement, kalen flow. Sats only 90% when increased to 50% ventimask, resp
in and placed pt on high flow 70%/55L. CHG bath, perineal care and purewick applied given resp distress. Multiple attempts by multiple nurses to obtain additional iv access with success on third attempt. Otherwise please refer to assessment.
[2024-03-27] MEDS: LR 1000 IV (17:45)
[2024-03-27] MEDS: VIBRAMYCIN 260 MG IV (17:54)
[2024-03-27] MEDS: PROTONIX 40 MG PO (17:55)
[2024-03-27 17:56] LABS: Folate > 20.0 ng/ml (2.76-20); Vitamin B12 924 pg/ml (239-931)
[2024-03-27] MEDS: LOPRESSOR PO (17:57)
[2024-03-27 18:09] LABS: Hemoglobin 8.3 g/dL (12.0-16.0)
[2024-03-27 18:39] LABS: Magnesium 2.2 mg/dl (1.6-2.3)
--- NOTE | 2024-03-27 19:30 | PTCARENOTE ---
Resumed care of pt this evening. Received pt on High flow O2 at 70%/55L. Pt is A&Ox3, can move all 4 extremities, and can make needs known. Pt is ST on tele monitor w/ trace edema on the B/L lower extremities. Pt tolerating high flow O2 settings
satting at 99% pulse ox. On auscultation pt lungs sound diminished TO w/ crackles heard at the left base. Pt's abdomen is round w/ hypoactive bowel sounds. Pure wick in place. Pt has a band aid on rt lower back from thoracentesis, site is C/D/I.
--- NOTE | 2024-03-27 20:00 | PTCARENOTE ---
1 unit of PRBCs initiated per protocol.
[2024-03-27] MEDS: LIPITOR 80 MG PO (21:35)
[2024-03-28] VITALS (41 sets, daily range): BP systolic 74–132; BP diastolic 45–73; PULSE 76; O2SAT 98; BMI 23.0
[2024-03-28] MEDS: DECADRON 6 MG IV ×2 (01:27→06:22)
[2024-03-28 01:48] LABS: Hematocrit 25.8 % (37.0-47.0); Hemoglobin 8.4 g/dL (12.0-16.0)
--- NOTE | 2024-03-28 04:30 | PTCARENOTE ---
2nd unit of PRBCs initiated due to hypotension and unchanged Hgb post 1st PRBC transfusion.
[2024-03-28] MEDS: LR 1000 IV ×2 (06:21→20:15)
--- NOTE | 2024-03-28 07:14 | W.PN.INTV ---
Today's Communication / Plan
Recommendations
Bolus IV fluids
Follow creatinine, urine output
Repeat labs in the p.m.
Quantify hemoptysis
Daily chest x-ray
Wean oxygen
Ongoing discussion regarding goals of care
Assessment
-
84-year-old female with history of significant COPD, severe emphysema per imaging, history of GERD/duodenal ulcer, coronary disease with history of abdominal aortic aneurysm rupture status postrepair, orthostatic hypotension, history of PE December
2023 on anticoagulation, presents with acute hemoptysis after thoracentesis earlier this morning. Patient has had outpatient imaging worrisome for underlying malignancy. We are asked to help from critical care standpoint
Acute hemoptysis
Less than 50 cc
Intra-pulmonary parenchymal hematoma
Suspected related to underlying pulmonary mass/nodule
Worrisome for malignant process
Right lower lobe alveolar process, likely from bleeding
Large right pleural effusion
s/p right thoracentesis 03/27
1 L of dark fluid removed
Resolved on repeat imaging
Multiple pulm nodules, subcarinal mass
Progressive per imaging
Abnormal PET scan worrisome for malignancy 03/22/2024
Conditions present prior to admission
Mild aortic stenosis, moderate pulm hypertension
PA pressure 58
Normal biventricular function per echo 01/17/2024
Anemia
History of GERD/peptic ulcer disease
Coronary disease
History of AAA repair
Orthostatic hypotension
Hypertension/hyperlipidemia
Plan/recommendations
At this time, patient is critically ill, but stable
Tachycardia has improved, tachypnea has improved. Patient is status post 2 units of blood, hemoglobin stable
Urine output marginal, creatinine bumped up to 1.5
No further hemoptysis noted
Chest x-ray today with increased right pleuroparenchymal process, suspect recurrence of pleural effusion
History of mild , moderate pulm hypertension noted
Normal biventricular function per echo December [address] chest and PET scan and prior CT imaging at length with patient and daughter
Reviewed images
I am concerned that she has progressive cancer
I am concerned that underlying tumor in the lung may be bleeding
Hematoma noted. I do not think this is related to her thoracentesis. She may have had some mild reexpansion effect possibly exacerbating oozing/bleeding
Patient is status post Kcentra. Anticoagulation/Xarelto has been discontinued
Moving forward
Wean oxygen as able
Head of bed elevated, right side down if able
Patient is at risk for respiratory deterioration. Reviewed at length potential need for intubation and mechanical ventilation
Given her severity of her underlying lung disease, suspicion for underlying tumor which is actively bleeding, do not think she would be liberated from the ventilator.
I reviewed with both her and her daughter that this may be a terminal event
Quantify hemoptysis
Tachycardia improved
Maintain active type and screen
Follow hemoglobin
Empiric steroids, antibiotics for possible pneumonia. Remains on ceftriaxone/doxycycline.
Continue with ipratropium every 6h, and as needed, decrease steroids
Will avoid beta agonist therapy at this time
Follow blood sugars
Follow-up creatinine. Urine output marginal
Encourage p.o. intake, continue IV fluids, bolus
Do not feel that repeat imaging or CT angiogram is helpful in this case as a suspect that if this is due to underlying malignancy, catheter directed coil embolization is potentially futile
This will be an ongoing discussion with interventional radiology
DVT prophylaxis: Mechanical prophylaxis
Reviewed at length with critical care nursing, ED staff, primary service, patient and daughter at bedside
TCCT 31 min
Subjective Dataa
Subjective Data
Date of Service:
Date of Service: March 28, 2024
Subjective:
Less tachycardic, less short of breath, less use of accessory muscles. Denies nausea, abdominal pain,, chest pain. Has some mild right back discomfort, nonpleuritic. Remains critically ill on high flow oxygen. No further hemoptysis
Objective Data
Data Reviewed
Vital Signs / I&O / Oxygen:
Vital Signs
Temp Pulse Resp BP Pulse Ox
97.8 F 94 15 85/54 98
03/28/24 06:39 03/28/24 07:00 03/28/24 07:00 03/28/24 07:00 03/28/24 07:00
Intake and Output
03/27/24 03/28/24 03/29/24
06:59 06:59 06:59
Intake Total 1800 / 1800
Output Total 0 / 0
Balance 1800 / 1800
SaO2 98
Nasal Cannula flow liters per 50
minute
Physical Exam
General: Comfortable
HEENT: Normocephalic and Anicteric
Cardiovascular: S1-S2, Regular Rhythm, Murmur (n), Rub (n), Peripheral Edema (n) and Calf Tenderness (n)
Respiratory: Wheeze (n), Crackles (n), Rhonchi (n), Non-Labored Respirations, Stridor (n) and Other (Slight decreased right base)
GI: Soft, Non Distended and Non Tender
Neurology: Awake, Alert and No Motor Deficits (Able to sit up with minimal assistance)
Skin: Cyanosis (n), Jaundice (n), Rash (n) and Bruising (Few scattered bruising)
Labs/Micro/Reports
Laboratory Results
03/27/24
13:30
PT 29.1 H
INR 2.75
APTT 41.5 H
[2024-03-28 07:43] LABS: % Immature Granulocytes 0.7 % (0-0.5); % Neutrophils 90.3 % (42.2-75.2); Absolute Immature Granulocytes 0.1 10^3/uL (0-0.05); Absolute Lymphocytes 0.7 10^3/uL (1.2-3.4); Absolute Monocytes 0.2 10^3/uL (0.1-0.6); Absolute Neutrophils 8.7 10^3/uL (1.4-6.5); Hemoglobin 8.7 g/dL (12.0-16.0); Mean Corp Hgb Conc. 32.2 g/dL (33.0-37.0); Mean Corpuscular Hgb 26.2 pg (27.0-31.0); Mean Corpuscular Volume 81.3 fL (81.0-99.0); Nucleated Red Blood Cells % 0 %; Red Blood Cell Count 3.32 10^6/uL (4.20-5.40); Red Cell Dist. Width 16.1 % (11.5-14.5); White Blood Cell Count 9.6 10^3/uL (4.8-10.8)
[2024-03-28 07:47] LABS: INR 1.68; PT 19.9 Sec (11.4-14.6)
[2024-03-28 08:16] LABS: Mean Platelet Volume 10.3 fL (7.4-10.4); Platelet Count 197 10^3/uL (130-400)
[2024-03-28 08:22] LABS: Blood Urea Nitrogen 28 mg/dl (7-17); Calcium 9.2 mg/dl (8.4-10.2); Carbon Dioxide 30 mmol/L (22-30); Chloride 101 mmol/L (98-107); Estimated Creatinine Clearance 25 ml/min; Glucose 145 mg/dl (70-99); Potassium 4.8 mmol/L (3.5-5.1); Sodium 135 mmol/L (135-145); eGFR 33.94
[2024-03-28] MEDS: ProAmatine 2.5 MG PO (08:25)
[2024-03-28] MEDS: TIMOPTIC 0.5% OPHTHALMIC SOLUTION 1 DROP BOTH EYES (08:25)
[2024-03-28] MEDS: VIBRAMYCIN 260 MG IV (08:26)
--- NOTE | 2024-03-28 09:48 | W.PN.HOSP.TC ---
Today's Communication/Plan
-
wean hi-ricky as able
monitor serial Hb
continue IVF; monitor BP
monitor labs
IV iron
holding blood thinners
Assessment / Plan
Assessment / Plan
Assessment:
Acute hypoxic respiratory failure
- requiring Hi-Ricky, on 5060 currently
- wean as able
5 cm hematoma with central enhancement consistent with active hemorrhage in the superior segment of the right lower lobe
- at the level of FDG avid mass which was seen on the PET CT 03/22/2024
- likely related to mass/hemorrhaged vessel; no pneumothorax
- right lower lobe consolidation related to the hemorrhage as above with very small increased attenuation right pleural effusion compatible with hemothorax
- hold Xarelto. s/p K-Centra 7/2
- s/p 2 units PRBCs
- continue Decadron 6mg q6h
- continue Rocephin/Doxy, day 2, for empiric CAP coverage
- follow Procurement Engineer recs
- may eventually need hemothorax drained
Hypotension
- improving with MOTION PICTURE SCENE BUILDER midodrine and IVF
SHAYY (pre-renal) on CKD stage 3b
- monitor with IVF and blood resuscitation
- bladder scans prn
Right sided pulmonary mass
- PET last week showed 2.1 cm solid pulmonary nodule in the right lower lobe with an SUV max of 6.2. multiple hypermetabolic pleural soft tissue nodules in the right hemithorax. Soft tissue nodularity along the right anterior pleural surface with an
SUV max of 5.8 and 4.7. Additional pleural soft tissue nodularity at the inferior aspect of the right hemithorax with an SUV max of up to 4.8. Right suprahilar lymph nodes versus additional pleural nodules with an SUV max of 7.2.
- follow up pathology of fluid
- OP Oncology followup
likely unprovoked LLE DVT with bilateral PE diagnosed 12/2023 (in setting of malignancy)
- holding Xarelto for active bleeding
Chronic anemia most likely related to malignancy
- low iron sats; add IV iron
Hx Duodenal Ulcer/GERD
- continue PPI
HLD
CAD
- continue statin
- continue BB with parameters
Hx of orthostatic hypotension
- continue midodrine
COPD
AAA rupture s/p repair
DVT ppx: SCDs
Code: Full code confirmed with family
Total Critical Care Time 44 minutes. I was immediately available to the patient and staff. I personally examined, reviewed labs, diagnostic images/reports, interpretations, treatment plans, discussed patient care with other providers and family
or caregivers (if patient is unable to make decisions), entered orders as appropriate and documented the medical record.
Anticipated Discharge: > 48 hours
Subjective/Interval History
-
Date of Service: March 28, 2024
on Hi-Ricky, 50/60
less labored breathing, tachycardia improved
BP improved with blood and fluids
Objective Data
-
Labs:
Laboratory Results
03/28/24 03/28/24 03/28/24
01:41 07:27 07:30
WBC 9.6
Hgb 8.4 L 8.7 L Pending
Hct 25.8 L 27.0 L Pending
Plt Count 197 D
PT 19.9 H
INR 1.68
Sodium 135
Potassium 4.8
Chloride 101
Carbon Dioxide 30
BUN 28 H
Creatinine 1.5 H
Glucose 145 H
Calcium 9.2
Vital Signs:
Vital Signs
Temp Pulse Resp BP Pulse Ox
98.2 F 94 15 85/54 98
03/28/24 07:00 03/28/24 07:00 03/28/24 07:00 03/28/24 07:00 03/28/24 08:00
I&O
03/27/24 03/28/24 03/29/24
06:59 06:59 06:59
Intake Total 1799 / 1799
Output Total 0 / 0
Balance 1799
Physical Exam
-
General: No Apparent Distress and Comfortable
HEENT: Normocephalic and Atraumatic
Respiratory: Decreased Breath Sounds, Other (on hi-Ricky) and Chest Tubes; Negative Wheezes
Cardiac: Regular Rhythm and S1/S2
GI: Soft
Genito-urinary: No Costovertebral Tender
Neuro: AO x 3
Psych: Calm
Data Reviewed
-
Critical Care Time (in minutes): 44
Diagnostic Radiology: Report Reviewed by me, Discussed with Physician, Discussed with Patient and Discussed with Family
Labs: Labs Reviewed by me, Discussed with Physician, Discussed with Patient and Discussed with Family
[2024-03-28] MEDS: LR 500 IV (10:59)
--- NOTE | 2024-03-28 12:24 | PTCARENOTE ---
systems reviewed. pt currently weaned to 4l midflow after having been weaned to 6l midflow by resp therapist. pt sitting up in chair working on lunch. still no void, but feels sensation. will attempt to get on bedside commode after lunch.
daughter and son at bedside. updated t/o shift.
--- NOTE | 2024-03-28 13:25 | PTCARENOTE ---
Addendum entered by Cami Camilo RN 03/28/24 13:28:
pt also weaned down to 2l once back in bed. moist post closing specialist cough once back in bed. no other changes.
Original Note:
pt assisted to bedside commode to void and had bm. urine dk/concentrated. bladder scan for 0 after voided on commode
--- NOTE | 2024-03-28 13:45 | CM ---
CM following re: discharge planning.
Discussed in Rounds, reviewed pt's chart, met with pt. Pt's daughter and pt's son at bedside.
Pt is an 84 year old female, admitted with primary dx of Acute hypoxic respiratory failure, currently requires 6L NC of O2
Pt reports she lives with daughter in a 2SH, 2 steps to enter, used to live alone, has 4 supportive children. Pt reports she does not use any mobile devices, current with [facility] [place] at home home care, was at [facility] in [facility] in
December.
Pt's daughter sent AD and a copy placed on pt's chart.
PT and OT evaluations noted - SNF vs home PT recommended. CM discussed it with pt, her son and daughter and both pt and her family requested home with resumptions of [employer] half-way care and family support. Pt's daughter stated she will transport pt
home at discharge.
Please fax discharge instructions at discharge to [facility] [place] home care at [phone]
PCP: Dr. Garduno
Pharmacy: formerly [facility]
D/C plan: home with resumptions of [employer] care at home VN and family support. Daughter to transport at discharge.
CM will follow with discharge plan updates as hospitalization progresses
[2024-03-28] MEDS: DECADRON 4 MG IV ×2 (14:38→22:28)
[2024-03-28] MEDS: FERRLECIT 110 MG IV (14:38)
--- NOTE | 2024-03-28 16:21 | PTCARENOTE ---
PT WITH PRODUCTIVE COUGH, OLD BLOOD AT TIMES THICK AND AT TIMES PEREZ SPUTUM, MINIMAL AMOUNTS. REMAINS ON 2LNC, +ANN, BUT COMFORTABLE AT REST. SATS LOW 88% WITH COUGHING/EXPECTORATING. SLIGHTLY MORE AIR MOVEMENT THIS AFTERNOON, OTHERWISE NO
CHANGES.
[2024-03-28 16:29] LABS: Hemoglobin 8.7 g/dL (12.0-16.0)
[2024-03-28 16:37] LABS: Estimated Creatinine Clearance 26 ml/min
[2024-03-28] MEDS: ROCEPHIN 1000 MG IV (16:49)
[2024-03-28] MEDS: STERILE WATER FOR INJECTION 10 ML IV (16:49)
--- NOTE | 2024-03-28 17:24 | PTCARENOTE ---
ASSISTED TO BEDSIDE COMMODE TO VOID, THEN CHAIR TO EAT DINNER. FAMILY HAS REMAINED AT BEDSIDE T/O DAY.
[2024-03-28] MEDS: LOPRESSOR 12.5 MG PO (17:51)
[2024-03-28] MEDS: PROTONIX 40 MG PO (17:51)
[2024-03-28] MEDS: VIBRAMYCIN 100 MG PO (20:17)
[2024-03-28] MEDS: LIPITOR 80 MG PO (22:28)
[2024-03-29] VITALS (12 sets, daily range): BP systolic 92–127; BP diastolic 37–86; BMI 23.6
[2024-03-29 04:34] LABS: % Basophils 0.1 % (0-2); % Immature Granulocytes 0.9 % (0-0.5); % Lymphocytes 4.4 % (20.5-51.1); % Monocytes 3.5 % (1.7-9.3); % Neutrophils 91.1 % (42.2-75.2); Absolute Immature Granulocytes 0.2 10^3/uL (0-0.05); Absolute Lymphocytes 0.7 10^3/uL (1.2-3.4); Absolute Monocytes 0.6 10^3/uL (0.1-0.6); Absolute Neutrophils 14.8 10^3/uL (1.4-6.5); Hematocrit 25.6 % (37.0-47.0); Hemoglobin 8.4 g/dL (12.0-16.0); Mean Corp Hgb Conc. 32.8 g/dL (33.0-37.0); Mean Corpuscular Hgb 26.6 pg (27.0-31.0); Mean Platelet Volume 10.4 fL (7.4-10.4); Nucleated Red Blood Cells % 0 %; Platelet Count 226 10^3/uL (130-400); Red Blood Cell Count 3.16 10^6/uL (4.20-5.40); Red Cell Dist. Width 16.5 % (11.5-14.5); White Blood Cell Count 16.3 10^3/uL (4.8-10.8)
[2024-03-29 04:55] LABS: Blood Urea Nitrogen 36 mg/dl (7-17); Calcium 9.2 mg/dl (8.4-10.2); Carbon Dioxide 31 mmol/L (22-30); Chloride 101 mmol/L (98-107); Estimated Creatinine Clearance 25 ml/min; Glucose 122 mg/dl (70-99); Potassium 4.9 mmol/L (3.5-5.1); Sodium 136 mmol/L (135-145); eGFR 33.94
[2024-03-29] MEDS: DECADRON 4 MG IV (05:45)
--- NOTE | 2024-03-29 07:06 | W.PN.INTV ---
Today's Communication / Plan
Recommendations
Discontinue antibiotics
Transition to oral prednisone 03/30
Continue to quantify hemoptysis, encourage cough
Out of bed to chair, ambulate
Continue nebulized ipratropium
Right chest ultrasound 03/30
Await pleural fluid cytology
For transfer out of ICU. Pulmonary will continue to follow
Assessment
-
84-year-old female with history of significant COPD, severe emphysema per imaging, history of GERD/duodenal ulcer, coronary disease with history of abdominal aortic aneurysm rupture status postrepair, orthostatic hypotension, history of PE December
2023 on anticoagulation, presents with acute hemoptysis after thoracentesis earlier this morning. Patient has had outpatient imaging worrisome for underlying malignancy. We are asked to help from critical care standpoint
Acute hemoptysis
Less than 50 cc
Intra-pulmonary parenchymal hematoma
Suspected related to underlying pulmonary mass/nodule
Worrisome for malignant process
Right lower lobe alveolar process, likely from bleeding
Large right pleural effusion
s/p right thoracentesis 03/27
1 L of dark fluid removed
Recurring. Chest x-ray
Multiple pulm nodules, subcarinal mass
Progressive per imaging
Abnormal PET scan worrisome for malignancy 03/22/2024
Conditions present prior to admission
Mild aortic stenosis, moderate pulm hypertension
PA pressure 58
Normal biventricular function per echo 01/17/2024
Anemia
History of GERD/peptic ulcer disease
Coronary disease
History of AAA repair
Orthostatic hypotension
Hypertension/hyperlipidemia
Plan/recommendations
At this time, patient appears to be improved objectively and subjectively
Tachycardia has improved, tachypnea has improved. Patient is status post 2 units of blood, hemoglobin stable
Urine output marginal, creatinine bumped up to 1.5, remained stable
Mild hemoptysis at bedside, all blood yesterday p.m.
Chest x-ray today worsening right pleuroparenchymal process, increased right pleural effusion
History of mild , moderate pulm hypertension noted
Normal biventricular function per echo December [address] chest and PET scan and prior CT imaging at length with patient and daughter
Reviewed images
I am concerned that she has progressive cancer
I am concerned that underlying tumor in the lung may be bleeding
Hematoma noted. I do not think this is related to her thoracentesis. She may have had some mild reexpansion effect possibly exacerbating oozing/bleeding
Patient is status post Kcentra. Anticoagulation/Xarelto has been discontinued
Moving forward
Wean oxygen as able, has been weaned down to 4 L
If develops worsening hemoptysis, [id number]
Increase activity, PT/OT
Discontinue antibiotics
Transition to oral prednisone
Airway clearance, encourage cough
Continue to quantify hemoptysis
Continue nebulized ipratropium every 6 hours
Given her severity of her underlying lung disease, suspicion for underlying tumor which is actively bleeding, do not think she would be liberated from the ventilator.
I reviewed with both her and her daughter that this may be a terminal event
I suspect she will require repeat thoracentesis on right side. She remains off Xarelto indefinitely given pulmonary hemorrhage/bleed
She is at high risk for recurrent thromboembolic disease. This was reviewed with family and patient
TINY stockings, sequential stockings
Follow-up creatinine. Urine output marginal, incontinent
Bladder scan intermittently
Do not feel that repeat imaging or CT angiogram is helpful in this case as a suspect that if this is due to underlying malignancy, catheter directed coil embolization is potentially futile
This will be an ongoing discussion with interventional radiology
DVT prophylaxis: Mechanical prophylaxis
Reviewed at length with critical care nursing, primary service, son at bedside and patient
Okay for transfer out of ICU. Pulmonary will continue to follow
Subjective Dataa
Subjective Data
Date of Service:
Date of Service: March 29, 2024
Subjective:
Patient is feeling well. Occasional cough, old blood noted yesterday p.m. at bedside. Denies chest pain, pleurisy, lightheadedness, dizziness, nausea. Oxygen has been weaned down to 4 L, 97%. Son at bedside
Objective Data
Data Reviewed
Vital Signs / I&O / Oxygen:
Vital Signs
Temp Pulse Resp BP Pulse Ox
98.3 F 88 20 115/60 96
03/29/24 03:51 03/29/24 06:00 03/29/24 06:00 03/29/24 06:00 03/29/24 06:00
Intake and Output
03/28/24 03/29/24 03/30/24
06:59 06:59 06:59
Intake Total 1800 / 1880 3790 / 3790
Output Total 0 / 0
Balance 1800 / 1880 3790 / 3790
SaO2 96
Nasal Cannula flow liters per 2
minute
Physical Exam
General: Comfortable
HEENT: Normocephalic and Anicteric
Cardiovascular: S1-S2, Regular Rhythm, Murmur (n), Rub (n), Peripheral Edema (n) and Calf Tenderness (n)
Respiratory: Wheeze (n), Crackles (n), Rhonchi (n), Non-Labored Respirations, Stridor (n) and Other (Slight decreased right base)
GI: Soft, Non Distended and Non Tender
Neurology: Awake, Alert and No Motor Deficits (Able to sit up with minimal assistance)
Skin: Cyanosis (n), Jaundice (n), Rash (n) and Bruising (Few scattered bruising)
Labs/Micro/Reports
Lab Data
03/29/24 03:59
03/29/24 03:59
Laboratory Results
03/28/24
07:27
PT 19.9 H
INR 1.68
[2024-03-29] MEDS: TIMOPTIC 0.5% OPHTHALMIC SOLUTION 1 DROP BOTH EYES (07:58)
[2024-03-29] MEDS: VIBRAMYCIN 100 MG PO (07:58)
--- NOTE | 2024-03-29 08:00 | PTCARENOTE ---
Assumed care of patient. Pt rec'd A&Ox3. Pleasant. AKHIOK. Forgetful occasionally. ALMANZAR's. S1 S2 reg w/ NSR on monitor. +PP. Trace LLE. Knee hi SCD's on. Rec'd on 2L N/C...sats 94%. Lungs diminished throughout especially right base...left
base w/ fine crackles. Occasional moist PC. Abdomen round...+BS. Voids in BSC. Skin pale in color. LR infusing...will cap after current bag. VS obtained. Call carroll within reach. Will continue to monitor.
[2024-03-29] MEDS: ProAmatine 2.5 MG PO (08:03)
--- NOTE | 2024-03-29 10:45 | PTCARENOTE ---
Pt had a small period of desating while in bed....O2 6L MFNC...sats low of 82%. Pt assisted OOB to chair...O2 increased to 10L MFNC...encouraged coughing and deep breathing....using IS q5min w/ coughing. Assisted to chair after using BSC. Sats
recovered to 88-90%. Reviewed importance of pulmonary toileting. Will continue to monitor closely.
--- NOTE | 2024-03-29 12:15 | PTCARENOTE ---
Pt seen by ...tx to IMU instead of tele. Pt resting comfortably in chair. O2 decreased to 8L MFNC...sats 96%. Right posterior lung (especially in base)....very diminished vs absent breath sounds. Continually encouraging pt to cough,
deep breath and use IS. For possible right thoracentesis tmr.
--- NOTE | 2024-03-29 12:45 | W.PN.HOSP.TC ---
Today's Communication/Plan
-
tx to IMU
continue steroids
continue IV iron
Abx stopped
monitor Hb
PT/OT
chest US and repeat thora 03/30
Assessment / Plan
Assessment / Plan
Assessment:
Acute on chronic hypoxic respiratory failure
- baseline 2L per daughter
- required Hi-ricky, now weaned to Mid-ricky 8L
- wean as able
5 cm hematoma with central enhancement consistent with active hemorrhage in the superior segment of the right lower lobe
- at the level of FDG avid mass which was seen on the PET CT 03/22/2024
- likely related to mass/hemorrhaged vessel; no pneumothorax
- right lower lobe consolidation related to the hemorrhage as above with very small increased attenuation right pleural effusion compatible with hemothorax
- hold Xarelto. s/p K-Centra 03/27
- s/p 2 units PRBCs
- continue steroids per pulmonary
- received Rocephin/Doxy x 2 days, now discontinued by pulmonary
- follow [employer] recs
Hemothorax, Right sided
- for repeat drainage with IR tomorrow; repeat cytology ordered
- chest US tomorrow
Hypotension
- improving with [employer] midodrine and IVF
SHAYY (pre-renal) on CKD stage 3b
- monitor with IVF and blood resuscitation; Cr is steady at 1.5
- bladder scans prn
Right sided pulmonary mass
- PET last week showed 2.1 cm solid pulmonary nodule in the right lower lobe with an SUV max of 6.2. multiple hypermetabolic pleural soft tissue nodules in the right hemithorax. Soft tissue nodularity along the right anterior pleural surface with an
SUV max of 5.8 and 4.7. Additional pleural soft tissue nodularity at the inferior aspect of the right hemithorax with an SUV max of up to 4.8. Right suprahilar lymph nodes versus additional pleural nodules with an SUV max of 7.2.
- follow up pathology of fluid
- OP Oncology followup
likely unprovoked LLE DVT with bilateral PE diagnosed 12/2023 (in setting of malignancy)
- holding Xarelto for active bleeding
Chronic anemia most likely related to malignancy
- low iron sats; continue IV iron
Hx Duodenal Ulcer/GERD
- continue PPI
HLD
CAD
- continue statin
- continue BB with parameters
Hx of orthostatic hypotension
- continue midodrine
COPD
AAA rupture s/p repair
DVT ppx: SCDs
Code: Full code confirmed with family
Total Critical Care Time 35 minutes. I was immediately available to the patient and staff. I personally examined, reviewed labs, diagnostic images/reports, interpretations, treatment plans, discussed patient care with other providers and family
or caregivers (if patient is unable to make decisions), entered orders as appropriate and documented the medical record.
Dispo: transfer to IMU
Anticipated Discharge: > 48 hours
Subjective/Interval History
-
Date of Service: March 29, 2024
off Hi-ricky, now on 8L
Objective Data
-
Labs:
Laboratory Results
03/29/24
03:59
WBC 16.3 H
Hgb 8.4 L
Hct 25.6 L
Plt Count 226
Sodium 136
Potassium 4.9
Chloride 101
Carbon Dioxide 31 H
BUN 36 H
Creatinine 1.5 H
Glucose 122 H
Calcium 9.2
Vital Signs:
Vital Signs
Temp Pulse Resp BP Pulse Ox
98.2 F 100 24 122/56 95
03/29/24 11:12 03/29/24 08:03 03/29/24 08:00 03/29/24 08:03 03/29/24 08:00
I&O
03/28/24 03/29/24 03/30/24
06:59 06:59 06:59
Intake Total 17990 3790 / 3870 240 / 240
Output Total 0 / 0
Balance 1800 1879 3790 / 3870 240 / 240
Physical Exam
-
General: No Apparent Distress
HEENT: Normocephalic and Atraumatic
Respiratory: Decreased Breath Sounds; Negative Wheezes
Cardiac: Regular Rhythm and S1/S2
GI: Soft
Neuro: AO x 3
Psych: Calm
Data Reviewed
-
Critical Care Time (in minutes): 35
Labs: Labs Reviewed by me
[2024-03-29] MEDS: FERRLECIT 110 MG IV (13:32)
[2024-03-29] MEDS: STERILE WATER FOR INJECTION IV (14:24)
--- NOTE | 2024-03-29 16:00 | PTCARENOTE ---
O2 decreased to 6L MFNC...sats 95%. Pt remains in chair...resting comfortably. No major changes in physical assessment. VS documented. Family at bedside. Call carroll within reach.
[2024-03-29] MEDS: PROTONIX 40 MG PO (18:23)
[2024-03-29] MEDS: LOPRESSOR 12.5 MG PO (18:23)
--- NOTE | 2024-03-29 20:00 | PTCARENOTE ---
Resumed care of pt this evening. Received pt OOB in chair on 6L of O2 satting at 90% pulse ox. Pt is A&Ox3, can move all 4 extremities, and can make needs know. Pt is ST on tele monitor, has trace edema B/L lower extremities, and palpable b/l pedal
pulses. Pt appears visibly SOB, tachypneic, and ANN compared to previous night. On auscultation pt lungs sound diminished TO w/ absent lung sounds at the right base. Pt ate most of dinner tonight, has a round abdomen w/ active BS. Pt ambulated x1
assist to bedside commode to void a moderate amount of clear yellow urine. During ambulation back to bed pt's HR increased to 110s and breathing became more tenuous. Pt's previous thoracentesis site on rt lower back bandage C/D/I. Upon return to bed
pt's breathing and hear rate returned to normal limits.
[2024-03-29] MEDS: LIPITOR 80 MG PO (22:12)
--- NOTE | 2024-03-29 23:32 | PTCARENOTE ---
Upon reassessment pt is resting comfortably at this time. Pt tolerating 6L of O2 via midflow nasal cannula satting at 96% pulse ox.
[2024-03-30] VITALS (20 sets, daily range): BP systolic 82–155; BP diastolic 53–94; PULSE 87; O2SAT 92–93; BMI 23.3
[2024-03-30 05:37] LABS: % Basophils 0.1 % (0-2); % Immature Granulocytes 0.7 % (0-0.5); % Lymphocytes 8.1 % (20.5-51.1); % Monocytes 6.9 % (1.7-9.3); % Neutrophils 84.2 % (42.2-75.2); Absolute Immature Granulocytes 0.1 10^3/uL (0-0.05); Absolute Lymphocytes 1.2 10^3/uL (1.2-3.4); Absolute Monocytes 1.1 10^3/uL (0.1-0.6); Absolute Neutrophils 12.9 10^3/uL (1.4-6.5); Hematocrit 24.3 % (37.0-47.0); Hemoglobin 7.8 g/dL (12.0-16.0); Mean Corp Hgb Conc. 32.1 g/dL (33.0-37.0); Mean Corpuscular Hgb 26.4 pg (27.0-31.0); Mean Corpuscular Volume 82.1 fL (81.0-99.0); Mean Platelet Volume 9.8 fL (7.4-10.4); Nucleated Red Blood Cells % 0 %; Platelet Count 198 10^3/uL (130-400); Red Blood Cell Count 2.96 10^6/uL (4.20-5.40); Red Cell Dist. Width 17.2 % (11.5-14.5); White Blood Cell Count 15.3 10^3/uL (4.8-10.8)
[2024-03-30 06:23] LABS: Blood Urea Nitrogen 30 mg/dl (7-17); Calcium 9.5 mg/dl (8.4-10.2); Carbon Dioxide 33 mmol/L (22-30); Chloride 105 mmol/L (98-107); Estimated Creatinine Clearance 31 ml/min; Glucose 91 mg/dl (70-99); Potassium 4.7 mmol/L (3.5-5.1); Sodium 139 mmol/L (135-145); eGFR 44.36
--- NOTE | 2024-03-30 07:17 | W.PN.INTV ---
Addendum entered and electronically signed by Abraham Thomas MD 03/30/24 13:35:
Per interventional radiology, minimal fluid, more consistent with atelectasis
Reviewed findings with patient and family
Ramp up airway clearance measures
Acapella device, chest percussion right base
Preliminary cytology abnormal for malignancy 03/27/2024. Await final identification. Reviewed with pathology. Reviewed with family and patient
Patient also has mild itching and rash involving right neck. Tolerated blood transfusion earlier today. Has had 2 prior transfusions this hospital stay
Okay for Benadryl but would consider half dose and more towards the p.m. if possible
Patient is okay with this plan
Reviewed above with family and critical care nursing
Original Note:
Today's Communication / Plan
Recommendations
Await right thoracentesis. Send fluid for cytology
Await cytology from prior study
Transfuse 1 unit
Continue steroids, nebulized treatment
Encourage cough
DNR status noted
Assessment
-
84-year-old female with history of significant COPD, severe emphysema per imaging, history of GERD/duodenal ulcer, coronary disease with history of abdominal aortic aneurysm rupture status postrepair, orthostatic hypotension, history of PE December
2023 on anticoagulation, presents with acute hemoptysis after thoracentesis earlier this morning. Patient has had outpatient imaging worrisome for underlying malignancy. We are asked to help from critical care standpoint
Acute hemoptysis
Less than 50 cc
Intra-pulmonary parenchymal hematoma
Suspected related to underlying pulmonary mass/nodule
Worrisome for malignant process
Right lower lobe alveolar process, likely from bleeding
Large right pleural effusion
s/p right thoracentesis 03/27
1 L of dark fluid removed
Recurring. Chest x-ray
Multiple pulm nodules, subcarinal mass
Progressive per imaging
Abnormal PET scan worrisome for malignancy 03/22/2024
Anemia
s/p transfusion, 2 units
Conditions present prior to admission
Mild aortic stenosis, moderate pulm hypertension
PA pressure 58
Normal biventricular function per echo 01/17/2024
Anemia
History of GERD/peptic ulcer disease
Coronary disease
History of AAA repair
Orthostatic hypotension
Hypertension/hyperlipidemia
Plan/recommendations
At this time, patient appears to be improved objectively and subjectively
Oxygen has been weaned down from 10 L to 6 L
Issues primarily are with exertion from bed to chair
Tachycardia has improved, tachypnea has improved. Patient is status post 2 units of blood, hemoglobin noted
Urine output marginal, creatinine bumped up to 1.5, decreased to 1.2. Of note received contrast for CT chest
Mild hemoptysis at bedside, all blood yesterday p.m. has not recurred
Chest x-ray today worsening right pleuroparenchymal process, increased right pleural effusion
History of mild , moderate pulm hypertension noted
Normal biventricular function per echo December [address] chest and PET scan and prior CT imaging at length with patient and daughter
Reviewed images
I am concerned that she has progressive cancer
I am concerned that underlying tumor in the lung may be bleeding
Hematoma noted. I do not think this is related to her thoracentesis. She may have had some mild reexpansion effect possibly exacerbating oozing/bleeding
Patient is status post Kcentra. Anticoagulation/Xarelto has been discontinued
Moving forward
Wean oxygen as able
If develops worsening hemoptysis, [id number]
Increase activity, PT/OT
Discontinue antibiotics
Transition to oral prednisone
Airway clearance, encourage cough
Continue to quantify hemoptysis
Continue nebulized ipratropium every 6 hours
Given her severity of her underlying lung disease, suspicion for underlying tumor which is actively bleeding, do not think she would be liberated from the ventilator.
I reviewed with both her and her daughter that this may be a terminal event
I suspect she will require repeat thoracentesis on right side.
This has been ordered for today
remains off Xarelto indefinitely given pulmonary hemorrhage/bleed
She is at high risk for recurrent thromboembolic disease. This was reviewed with family and patient
Recent echocardiogram December 2023 with normal biventricular function, PA pressure 58, valvular disease noted
TINY stockings, sequential stockings
Follow-up creatinine. Urine output marginal, incontinent
Bladder scan intermittently
Do not feel that repeat imaging or CT angiogram is helpful in this case as a suspect that if this is due to underlying malignancy, catheter directed coil embolization is potentially futile
This will be an ongoing discussion with interventional radiology
DVT prophylaxis: Mechanical prophylaxis
Reviewed at length with critical care nursing, primary service, son at bedside and patient
Reviewed clinical course and potential for reversible process, treatment options down the road
Family has made it clear that she would be DNR, patient confirmed this
Subjective Dataa
Subjective Data
Date of Service:
Date of Service: March 30, 2024
Subjective:
Patient is feeling well. She denies any complaints. She has a mild cough, less productive, no blood since yesterday morning. Denies chest pain, nausea, abdominal pain. Son at bedside
Objective Data
Data Reviewed
Vital Signs / I&O / Oxygen:
Vital Signs
Temp Pulse Resp BP Pulse Ox
98.0 F 93 29 123/65 92
03/29/24 15:45 03/30/24 06:00 03/30/24 06:00 03/30/24 06:00 03/30/24 06:00
Intake and Output
03/29/24 03/30/24 03/31/24
06:59 06:59 06:59
Intake Total 3790 / 3870 1000 / 1000
Output Total 375 / 375
Balance 3790 / 3870 625 / 625
SaO2 92
Nasal Cannula flow liters per 6
minute
Physical Exam
General: Comfortable
HEENT: Normocephalic and Anicteric
Cardiovascular: S1-S2, Regular Rhythm, Murmur (n), Rub (n), Peripheral Edema (n) and Calf Tenderness (n)
Respiratory: Wheeze (n), Crackles (n), Rhonchi (n), Non-Labored Respirations, Stridor (n) and Other (Slight decreased right base)
GI: Soft, Non Distended and Non Tender
Neurology: Awake, Alert and No Motor Deficits (Able to sit up with minimal assistance)
Skin: Cyanosis (n), Jaundice (n), Rash (n) and Bruising (Few scattered bruising)
Labs/Micro/Reports
Lab Data
03/30/24 05:30
03/30/24 05:30
[2024-03-30] MEDS: TIMOPTIC 0.5% OPHTHALMIC SOLUTION 1 DROP BOTH EYES (08:11)
[2024-03-30] MEDS: DELTASONE 30 MG PO (08:11)
[2024-03-30] MEDS: ProAmatine 2.5 MG PO (08:11)
--- NOTE | 2024-03-30 08:15 | PTCARENOTE ---
Received pt awake and alert.Speech is appropriate.+ ALMANZAR noted.Denies pain.Assisted oob to chair with minimal assist.SR noted.Decreased breath sounds throughout.O2 midflow 6l.POX 84-94%+ ANN,+orthopnea.Occasional harsh,moist productive
cough/Expectorates moderate amount thick jaramillo sputum.Appetite fair-good.+BM.Voiding yellow urine in commode.Right lower back ecchymosis noted.Pt's son at bedside.Plan of care discussed.
--- NOTE | 2024-03-30 10:00 | PTCARENOTE ---
Addendum entered by Kaleigh Hall RN 03/30/24 15:57:
PRBC transfusion initiated as ordered.
Original Note:
Pt transported to IR suite via bed.Report given to IR RN.
--- NOTE | 2024-03-30 11:10 | PTCARENOTE ---
Pt transported from IR to ICU via bed.
--- NOTE | 2024-03-30 12:23 | PTCARENOTE ---
PRBC transfusion completed at 1200.VS 98.3 80 190 144/69.Pt c/o itchiness at neck and bl axilla area.No hives noted.No SOB.Dr Mendez and blood bank associate made aware.Verbal order for Benadryl taken from Dr Mendez.
--- NOTE | 2024-03-30 12:46 | PTCARENOTE ---
Dr Townsend at bedside.Benadryl held as ordered.Pt is less itchy.No SOB.
[2024-03-30] MEDS: STERILE WATER FOR INJECTION IV (14:57)
[2024-03-30] MEDS: FERRLECIT 110 MG IV (14:57)
--- NOTE | 2024-03-30 15:07 | CM ---
CM reviewed medical records. Patient remains acutely ill.
--- NOTE | 2024-03-30 16:21 | PTCARENOTE ---
Pt assessed.No change in assessment noted.Neck and axilla itching have resolved without administration of Benadryl.Pt is sitting oob in recliner chair with her family at bedside.
--- NOTE | 2024-03-30 17:41 | W.PN.HOSP.TC ---
Today's Communication/Plan
-
recheck labs tomorrow, consider further transfusion
Assessment / Plan
Assessment / Plan
Assessment:
Acute on chronic hypoxic respiratory failure
- baseline 2L per daughter
- required Hi-ricky, now weaned to 6L/M with SaO2 93%
- wean as able
Reviewed with Dr. Thomas
CT scan of chest 03/27: 5 cm hematoma with central enhancement consistent with active hemorrhage in the superior segment of the right lower lobe
- at the level of FDG avid mass which was seen on the PET CT 03/22/2024
- likely related to mass/hemorrhaged vessel; no pneumothorax
- right lower lobe consolidation related to the hemorrhage as above with very small increased attenuation right pleural effusion compatible with hemothorax
- hold Xarelto. s/p K-Centra 03/27
Hgb 8.4-->7.8
became very itchy after blood transfused today (03/30) but no obvious evidence of rxn (no rash, etc). Benadryl ordered for symptom relief, modified by Dr. Thomas
- s/p 2 units PRBCs, received 3rd unit 03/30
- continue steroids per pulmonary
- received Rocephin/Doxy x 2 days, now discontinued by pulmonary
- follow [employer] recs
Hemothorax, Right sided
- unable to perform further drainage with IR 03/30; await final cytology, preliminary noted for high probability of malignancy
- chest US: Small recurrent right pleural effusion.
Airspace consolidation within the RIGHT lower lobe which may reflect patient's known intraperitoneal hematoma/brachial hemorrhage seen on prior CT.
Hypotension
- improving with [employer] midodrine and IVF
SHAYY (pre-renal) on CKD stage 3b
- monitor with IVF and blood resuscitation; Cr is steady at 1.5-->1.2
- bladder scans prn
Right sided pulmonary mass
- PET last week showed 2.1 cm solid pulmonary nodule in the right lower lobe with an SUV max of 6.2. multiple hypermetabolic pleural soft tissue nodules in the right hemithorax. Soft tissue nodularity along the right anterior pleural surface with an
SUV max of 5.8 and 4.7. Additional pleural soft tissue nodularity at the inferior aspect of the right hemithorax with an SUV max of up to 4.8. Right suprahilar lymph nodes versus additional pleural nodules with an SUV max of 7.2.
- follow up pathology of fluid
- OP Oncology followup
likely unprovoked LLE DVT with bilateral PE diagnosed 12/2023 (in setting of malignancy)
- holding Xarelto for active bleeding
Chronic anemia most likely related to malignancy
- low iron sats; continue IV iron
Hx Duodenal Ulcer/GERD
- continue PPI
HLD
CAD
- continue statin
- continue BB with parameters
Hx of orthostatic hypotension
- continue midodrine
COPD
AAA rupture s/p repair
DVT ppx: SCDs
Code: Full code confirmed with family
Met with Dariana salomon. Await results of cytology, cell type to determine whether pt is a candidate for ChemoRx vs palliative care
Dispo: transfer to IMU
Anticipated Discharge: > 48 hours
Subjective/Interval History
-
Date of Service: March 30, 2024
Sitting in chair, surrounded by family
Objective Data
-
Labs:
Laboratory Results
03/30/24
05:30
Sodium 139
Potassium 4.7
Chloride 105
Carbon Dioxide 33 H
BUN 30 H
Creatinine 1.2 H
Glucose 91
Calcium 9.5
Vital Signs:
Vital Signs
Temp Pulse Resp BP Pulse Ox
97.4 F 95 22 148/65 90
03/30/24 15:18 03/30/24 16:00 03/30/24 16:00 03/30/24 16:00 03/30/24 15:31
I&O
03/29/24 03/30/24 03/31/24
06:59 06:59 06:59
Intake Total 3790 / 3870 1000 / 1000 600 / 600
Output Total 375 / 375 450 / 450
Balance 3790 / 3870 625 / 625 150 / 150
Review of Systems
-
History Source: Patient and Family (reviewed with Darinaa salomon both in and out of room)
Constitutional: Denies Fever
EENT: Reports No Symptoms Reported
Respiratory: Reports Trouble Breathing
Cardiac: Reports No Symptoms
Abdomen/GI: Reports No Symptoms
Physical Exam
-
General: Well Developed, Well Nourished and No Apparent Distress (at rest)
HEENT: Normocephalic, Atraumatic and Moist Mucous Membranes
Respiratory: Rales (rt sided rales with decreased BS and noted splinting); Negative Clear to Auscultation (splinting with shallow respirations)
Cardiac: Regular Rhythm and S1/S2
GI: Soft, Nontender and Nondistended
Musculoskeletal: No Clubbing, No Cyanosis and No Edema
Neuro: Awake, Alert and Oriented
[2024-03-30] MEDS: PROTONIX 40 MG PO (19:04)
[2024-03-30] MEDS: LOPRESSOR 12.5 MG PO (19:04)
--- NOTE | 2024-03-30 21:35 | PTCARENOTE ---
Assumed care of pt at 1900. Received pt OOB to chair. Currently on 6LNC, SpO2 95%. SR/ST on monitor, HR anywhere from 70s-low 100s. Physical assessment completed, see nursing shift assessment flowsheet for full details. Family at bedside, son will
be staying the night. Call carroll and personal items within reach. Pt is currently IMU level of care.
[2024-03-30] MEDS: LIPITOR 80 MG PO (22:08)
[2024-03-31] VITALS (11 sets, daily range): BP systolic 117–148; BP diastolic 55–119; BMI 23.3
--- NOTE | 2024-03-31 05:39 | W.PN.INTV ---
Today's Communication / Plan
Recommendations
Continue with airway clearance
Continue with steroids
Out of bed to chair, ambulate
Creatinine improved
Follow hemoglobin
Assessment
-
84-year-old female with history of significant COPD, severe emphysema per imaging, history of GERD/duodenal ulcer, coronary disease with history of abdominal aortic aneurysm rupture status postrepair, orthostatic hypotension, history of PE December
2023 on anticoagulation, presents with acute hemoptysis after thoracentesis earlier this morning. Patient has had outpatient imaging worrisome for underlying malignancy. We are asked to help from critical care standpoint
Acute hemoptysis
Less than 50 cc
Intra-pulmonary parenchymal hematoma
Suspected related to underlying pulmonary mass/nodule
Worrisome for malignant process
Right lower lobe alveolar process, likely from bleeding
Large right pleural effusion
s/p right thoracentesis 03/27
1 L of dark fluid removed
Recurring. Chest x-ray
Multiple pulm nodules, subcarinal mass
Progressive per imaging
Abnormal PET scan worrisome for malignancy 03/22/2024
Anemia
s/p transfusion, 2 units
Conditions present prior to admission
Mild aortic stenosis, moderate pulm hypertension
PA pressure 58
Normal biventricular function per echo 01/17/2024
Anemia
History of GERD/peptic ulcer disease
Coronary disease
History of AAA repair
Orthostatic hypotension
Hypertension/hyperlipidemia
Plan/recommendations
At this time, patient appears to be improved objectively and subjectively
Oxygen has been weaned down from 10 L to 6 L
Issues primarily are with exertion from bed to chair
Tachycardia has improved, tachypnea has improved. Hemoglobin increased to 8.9 after 1 unit transfusion
Has received a total of 3 units since admission
Urine output marginal, creatinine bumped up to 1.5, decreased to 1.0. Of note received contrast for CT chest
Hemoptysis not recurred
No fluid available for thoracentesis
History of mild , moderate pulm hypertension noted
Normal biventricular function per echo December [address] chest and PET scan and prior CT imaging at length with patient and daughter
Reviewed images
I am concerned that she has progressive cancer
I am concerned that underlying tumor in the lung may be bleeding
Hematoma noted. I do not think this is related to her thoracentesis. She may have had some mild reexpansion effect possibly exacerbating oozing/bleeding
Patient is status post Kcentra. Anticoagulation/Xarelto has been discontinued
Moving forward
Wean oxygen as able
If develops worsening hemoptysis, [id number]
Increase activity, PT/OT
Discontinue antibiotics
Continue prednisone, slow taper
Airway clearance, encourage cough
Continue to quantify hemoptysis
Continue nebulized ipratropium every 6 hours
Given her severity of her underlying lung disease, suspicion for underlying tumor which is actively bleeding, do not think she would be liberated from the ventilator.
I reviewed with both her and her daughter that this may be a terminal event
Will follow chest x-ray intermittently as clinically indicated
remains off Xarelto indefinitely given pulmonary hemorrhage/bleed
She is at high risk for recurrent thromboembolic disease. This was reviewed with family and patient
Recent echocardiogram December 2023 with normal biventricular function, PA pressure 58, valvular disease noted
TINY stockings, sequential stockings
Follow-up creatinine. Urine output marginal, incontinent
Bladder scan intermittently
Creatinine improved
Do not feel that repeat imaging or CT angiogram is helpful in this case as a suspect that if this is due to underlying malignancy, catheter directed coil embolization is potentially futile
This will be an ongoing discussion with interventional radiology
Await cytology, preliminarily malignant. Hopefully finalized by 04/02
At that time, consider oncology evaluation although I doubt patient will be able to tolerate any systemic treatment given functional status this would be an ongoing discussion
DVT prophylaxis: Mechanical prophylaxis
Reviewed at length with critical care nursing, primary service, multiple family members throughout the day 03/30 and daughter at bedside 03/31
Reviewed clinical course and potential for reversible process, treatment options down the road
Family has made it clear that she would be DNR, patient confirmed this
Subjective Dataa
Subjective Data
Date of Service:
Date of Service: March 31, 2024
Subjective:
Patient is feeling okay. Continues with airway clearance, Acapella. Productive cough, dark mucus with old blood. No new blood. Denies chest pain, nausea, abdominal pain. Daughter at bedside
Objective Data
Data Reviewed
Vital Signs / I&O / Oxygen:
Vital Signs
Temp Pulse Resp BP Pulse Ox
97.0 F 68 26 122/60 97
03/31/24 03:19 03/31/24 04:07 03/31/24 04:07 03/31/24 04:07 03/31/24 04:07
Intake and Output
03/29/24 03/30/24 03/31/24
06:59 06:59 06:59
Intake Total 3790 / 3870 1000 / 1000 1080 / 1080
Output Total 375 / 375 1115 / 1115
Balance 3790 / 3870 625 / 625 -35 / -35
SaO2 97
Nasal Cannula flow liters per 6
minute
Physical Exam
General: Comfortable
HEENT: Normocephalic and Anicteric
Cardiovascular: S1-S2, Regular Rhythm, Murmur (n), Rub (n), Peripheral Edema (n) and Calf Tenderness (n)
Respiratory: Wheeze (n), Crackles (n), Rhonchi (n), Non-Labored Respirations, Stridor (n) and Other (Slight decreased right base)
GI: Soft, Non Distended and Non Tender
Neurology: Awake, Alert and No Motor Deficits (Able to sit up without assistance)
Skin: Cyanosis (n), Jaundice (n), Rash (n) and Bruising (Few scattered bruising)
[2024-03-31 05:41] LABS: % Basophils 0.1 % (0-2); % Immature Granulocytes 0.6 % (0-0.5); % Lymphocytes 11.3 % (20.5-51.1); % Monocytes 9.2 % (1.7-9.3); % Neutrophils 78.8 % (42.2-75.2); Absolute Immature Granulocytes 0.1 10^3/uL (0-0.05); Absolute Lymphocytes 1.4 10^3/uL (1.2-3.4); Absolute Monocytes 1.2 10^3/uL (0.1-0.6); Hemoglobin 8.9 g/dL (12.0-16.0); Mean Corpuscular Hgb 27.1 pg (27.0-31.0); Mean Corpuscular Volume 82.3 fL (81.0-99.0); Mean Platelet Volume 10.2 fL (7.4-10.4); Nucleated Red Blood Cells % 0 %; Platelet Count 205 10^3/uL (130-400); Red Blood Cell Count 3.28 10^6/uL (4.20-5.40); Red Cell Dist. Width 16.8 % (11.5-14.5); White Blood Cell Count 12.7 10^3/uL (4.8-10.8)
[2024-03-31 06:07] LABS: Blood Urea Nitrogen 27 mg/dl (7-17); Calcium 9.3 mg/dl (8.4-10.2); Carbon Dioxide 32 mmol/L (22-30); Chloride 102 mmol/L (98-107); Estimated Creatinine Clearance 37 ml/min; Glucose 87 mg/dl (70-99); Potassium 4.2 mmol/L (3.5-5.1); Sodium 137 mmol/L (135-145); eGFR 55.21
[2024-03-31] MEDS: ProAmatine 2.5 MG PO (07:53)
[2024-03-31] MEDS: DELTASONE 30 MG PO (07:53)
[2024-03-31] MEDS: TIMOPTIC 0.5% OPHTHALMIC SOLUTION 1 DROP BOTH EYES (07:54)
--- NOTE | 2024-03-31 10:11 | PTCARENOTE ---
Assumed care of pt at 0700. pt assisted OOB to chair. Currently on 6LNC, SpO2 92%. SR/ST on monitor, HR anywhere from 70s-low 100s. Physical assessment completed, see nursing shift assessment flowsheet for full details. Family at bedside. Call carroll
and personal items within reach. Pt is currently IMU level of care.
[2024-03-31] MEDS: FERRLECIT 110 MG IV (14:08)
[2024-03-31] MEDS: STERILE WATER FOR INJECTION IV (14:09)
--- NOTE | 2024-03-31 16:58 | W.PN.HOSP.TC ---
Today's Communication/Plan
-
continue current Rx, await pathology results
Assessment / Plan
Assessment / Plan
Assessment:
Patient is an 84 y/o F, hx of COPD, hx of PUD, CAD, orthostasis on midodrine, recent admission in December for acute PE/DVT on Xarelto, hx of AAA s/p repair presents to ER with hemoptysis. She underwent scheduled outpatient right sided thoracentesis
early on day of admission without any complications; 800 cc of dark serosanguineous pleural fluid was removed. Thoracentesis was performed with R sided effusion and know R FDG avid mass seen on PET imaging 1 week prior.
in ER, urgent CT Chest showed 5 cm hematoma with central enhancement consistent with active hemorrhage in the superior segment of the right lower lobe.
Acute on chronic hypoxic respiratory failure
- baseline 2L per daughter
- required Hi-ricky, now weaned to 6L/M with SaO2 93%
- wean as able
Reviewed with Dr. Thomas
CT scan of chest 03/27: 5 cm hematoma with central enhancement consistent with active hemorrhage in the superior segment of the right lower lobe
- at the level of FDG avid mass which was seen on the PET CT 03/22/2024
- likely related to mass/hemorrhaged vessel; no pneumothorax
- right lower lobe consolidation related to the hemorrhage as above with very small increased attenuation right pleural effusion compatible with hemothorax
- hold Xarelto. s/p K-Centra 03/27
Hgb 8.4-->7.8-1 unit-->8.9
became very itchy after blood transfused (03/30) but no obvious evidence of rxn (no rash, etc). Benadryl ordered for symptom relief, modified by Dr. Thomas
- s/p 2 units PRBCs, received 3rd unit 03/30
- continue steroids per pulmonary
- received Rocephin/Doxy x 2 days, now discontinued by pulmonary
- follow Log Data Technician recs
Hemothorax, Right sided
- unable to perform further drainage with IR 03/30; await final cytology, preliminary noted for high probability of malignancy
- chest US: Small recurrent right pleural effusion.
Airspace consolidation within the RIGHT lower lobe which may reflect patient's known intraperitoneal hematoma/brachial hemorrhage seen on prior CT.
Hypotension
- improving with INFORMATION TECHNOLOGY MANAGER midodrine and IVF
SHAYY (pre-renal) on CKD stage 3b
- monitor with IVF and blood resuscitation; Cr is steady at 1.5-->1.2
- bladder scans prn
Right sided pulmonary mass
- PET last week showed 2.1 cm solid pulmonary nodule in the right lower lobe with an SUV max of 6.2. multiple hypermetabolic pleural soft tissue nodules in the right hemithorax. Soft tissue nodularity along the right anterior pleural surface with an
SUV max of 5.8 and 4.7. Additional pleural soft tissue nodularity at the inferior aspect of the right hemithorax with an SUV max of up to 4.8. Right suprahilar lymph nodes versus additional pleural nodules with an SUV max of 7.2. Pt is splinting
when asked to take a deep breath due to significant pleural pain
- follow up pathology of fluid
- OP Oncology followup
likely unprovoked LLE DVT with bilateral PE diagnosed 12/2023 (in setting of malignancy)
- holding Xarelto for active bleeding
Chronic anemia most likely related to malignancy
- low iron sats; continue IV iron
Hx Duodenal Ulcer/GERD
- continue PPI
HLD
CAD
- continue statin
- continue BB with parameters
Hx of orthostatic hypotension
- continue midodrine
COPD
AAA rupture s/p repair
DVT ppx: SCDs
Code: Full code confirmed with family
Met with Dariana salomon. Await results of cytology, cell type to determine whether pt is a candidate for ChemoRx vs palliative care
Dispo: transfer to IMU
Anticipated Discharge: > 48 hours
Subjective/Interval History
-
Date of Service: March 31, 2024
Awake, alert, more comfortable
Objective Data
-
Labs:
Laboratory Results
03/31/24
05:28
WBC 12.7 H
Hgb 8.9 L
Hct 27.0 L
Plt Count 205
Sodium 137
Potassium 4.2
Chloride 102
Carbon Dioxide 32 H
BUN 27 H
Creatinine 1.0
Glucose 87
Calcium 9.3
Vital Signs:
Vital Signs
Temp Pulse Resp BP Pulse Ox
97.6 F 93 16 117/71 95
03/31/24 15:37 03/31/24 16:00 03/31/24 16:00 03/31/24 16:00 03/31/24 14:00
I&O
03/30/24 03/31/24 04/01/24
06:59 06:59 06:59
Intake Total 1000 / 1000 1200 / 1200
Output Total 375 / 375 1215 / 1215
Balance 625 / 625 -15 / -15
Review of Systems
-
History Source: Patient and Family (reviewed with Dariana salomon )
Constitutional: Denies Fever
EENT: Reports No Symptoms Reported
Respiratory: Reports Trouble Breathing
Cardiac: Reports No Symptoms
Abdomen/GI: Reports No Symptoms
Physical Exam
-
General: Well Developed, Well Nourished and No Apparent Distress (at rest)
HEENT: Normocephalic, Atraumatic and Moist Mucous Membranes
Respiratory: Rales (rt sided rales with decreased BS and noted splinting); Negative Clear to Auscultation (splinting with shallow respirations)
Cardiac: Regular Rhythm and S1/S2
GI: Soft, Nontender and Nondistended
Musculoskeletal: No Clubbing, No Cyanosis and No Edema
Neuro: Awake, Alert and Oriented
[2024-03-31] MEDS: LOPRESSOR 12.5 MG PO (17:26)
[2024-03-31] MEDS: PROTONIX 40 MG PO (17:26)
[2024-03-31] MEDS: LIPITOR 80 MG PO (22:19)
[2024-04-01] VITALS (13 sets, daily range): BP systolic 111–162; BP diastolic 60–96; PULSE 99; O2SAT 96; BMI 23.1
--- NOTE | 2024-04-01 01:10 | PTCARENOTE ---
Assumed care of Pt. Son at the bedside. Pt aaox3, cooperative. oob to br x1 assist. denies pain or sob. oriented to room. pox 98% on 6L NC. nsr on monitor. call carroll within reach.
[2024-04-01 05:37] LABS: % Basophils 0.1 % (0-2); % Eosinophils 0.2 % (0-6); % Immature Granulocytes 0.8 % (0-0.5); % Lymphocytes 11.8 % (20.5-51.1); % Monocytes 8.2 % (1.7-9.3); % Neutrophils 78.9 % (42.2-75.2); Absolute Immature Granulocytes 0.1 10^3/uL (0-0.05); Absolute Lymphocytes 1.4 10^3/uL (1.2-3.4); Absolute Neutrophils 9.4 10^3/uL (1.4-6.5); Hematocrit 32.1 % (37.0-47.0); Hemoglobin 10.2 g/dL (12.0-16.0); Mean Corp Hgb Conc. 31.8 g/dL (33.0-37.0); Mean Corpuscular Hgb 26.6 pg (27.0-31.0); Mean Corpuscular Volume 83.8 fL (81.0-99.0); Mean Platelet Volume 10.3 fL (7.4-10.4); Nucleated Red Blood Cells % 0 %; Platelet Count 217 10^3/uL (130-400); Red Blood Cell Count 3.83 10^6/uL (4.20-5.40); Red Cell Dist. Width 17.2 % (11.5-14.5); White Blood Cell Count 11.9 10^3/uL (4.8-10.8)
[2024-04-01 06:21] LABS: Blood Urea Nitrogen 25 mg/dl (7-17); Calcium 9.9 mg/dl (8.4-10.2); Carbon Dioxide 32 mmol/L (22-30); Chloride 102 mmol/L (98-107); Estimated Creatinine Clearance 37 ml/min; Glucose 92 mg/dl (70-99); Potassium 4.7 mmol/L (3.5-5.1); Sodium 139 mmol/L (135-145); eGFR 55.21
[2024-04-01] MEDS: DELTASONE 30 MG PO (08:00)
[2024-04-01] MEDS: TIMOPTIC 0.5% OPHTHALMIC SOLUTION 1 DROP BOTH EYES (08:00)
--- NOTE | 2024-04-01 08:14 | PTCARENOTE ---
Assumed care of patient this am. She is alert and oriented x 3, making needs known, using call-light to call for assist and answering questions appropriately. NSR on telemetry but Sinus tachycardia to 130 with use of BSC. No c/o chest pain or
discomfort. ANN on 6L NC pulse ox 96%, lungs coarse throughout, Productive cough for brown thick tinged sputum. Pt and son report that secretions are looser and she is coughing them more easily today. Abdomen soft, round with active bowel tones. Pt
continent of bowel and bladder. Son at bedside.
[2024-04-01] MEDS: ProAmatine PO (08:33)
--- NOTE | 2024-04-01 12:25 | W.PN.PUL3 ---
Today's Communication / Plan
-
Continue with slow wean of prednisone
Wean oxygen as able
PT/OT, ambulate
Indefinitely hold anticoagulation
Repeat chest x-ray 04/02
Await final pathology of pleural fluid results, may require oncology evaluation
Assessment
-
84-year-old female with history of significant COPD, severe emphysema per imaging, history of GERD/duodenal ulcer, coronary disease with history of abdominal aortic aneurysm rupture status postrepair, orthostatic hypotension, history of PE December
2023 on anticoagulation, presents with acute hemoptysis after thoracentesis earlier this morning. Patient has had outpatient imaging worrisome for underlying malignancy. We are asked to help from critical care standpoint
Acute hemoptysis
Less than 50 cc
Intra-pulmonary parenchymal hematoma
Resolved suspected related to underlying pulmonary mass/nodule
Worrisome for malignant process
Right lower lobe alveolar process, likely from bleeding
Large right pleural effusion
s/p right thoracentesis 03/27
1 L of dark fluid removed
Not enough for repeat thoracentesis per chest ultrasound
Suspicious cytology for lung cancer. Final report pending
Multiple pulm nodules, subcarinal mass
Progressive per imaging
Abnormal PET scan worrisome for malignancy 03/22/2024
Anemia
s/p transfusion, 2 units
Conditions present prior to admission
Mild aortic stenosis, moderate pulm hypertension
PA pressure 58
Normal biventricular function per echo 01/17/2024
Anemia
History of GERD/peptic ulcer disease
Coronary disease
History of AAA repair
Orthostatic hypotension
Hypertension/hyperlipidemia
Plan/recommendations
At this time, patient appears to be improved objectively and subjectively
Oxygen has been weaned down from 10 L to 4 L
Issues primarily are with exertion from bed to chair
Tachycardia has improved, tachypnea has improved. Hemoglobin increased to 10.2 after 1 unit transfusion
Has received a total of 3 units since admission
Urine output marginal, creatinine bumped up to 1.5, decreased to 1.0. Of note received contrast for CT chest
Hemoptysis not recurred
No fluid available for repeat thoracentesis
History of mild , moderate pulm hypertension noted
Normal biventricular function per echo December [address] chest and PET scan and prior CT imaging at length with patient and daughter
Reviewed images
I am concerned that she has progressive cancer
I am concerned that underlying tumor in the lung may be bleeding
Hematoma noted. I do not think this is related to her thoracentesis. She may have had some mild reexpansion effect possibly exacerbating oozing/bleeding
Patient is status post Kcentra. Anticoagulation/Xarelto has been discontinued
Pleural fluid preliminarily positive per discussion with pathology. Report pending, hope to be finalized 04/02
Moving forward
Wean oxygen as able
If develops worsening hemoptysis, [id number]
Increase activity, PT/OT
Discontinue antibiotics
Continue prednisone, slow taper
Airway clearance, encourage cough
Continue to quantify hemoptysis
Continue nebulized ipratropium every 6 hours
Given her severity of her underlying lung disease, suspicion for underlying tumor which is actively bleeding, do not think she would be liberated from the ventilator.
I reviewed with both her and her daughter that this may be a terminal event
Will follow chest x-ray intermittently as clinically indicated
remains off Xarelto indefinitely given pulmonary hemorrhage/bleed
She is at high risk for recurrent thromboembolic disease. This was reviewed with family and patient
Recent echocardiogram December 2023 with normal biventricular function, PA pressure 58, valvular disease noted
TINY stockings, sequential stockings
Follow-up creatinine. Urine output marginal, incontinent
Bladder scan intermittently
Creatinine improved
Do not feel that repeat imaging or CT angiogram is helpful in this case as a suspect that if this is due to underlying malignancy, catheter directed coil embolization is potentially futile
This will be an ongoing discussion with interventional radiology
Await cytology, preliminarily malignant. Hopefully finalized by 04/02
At that time, consider oncology evaluation although I doubt patient will be able to tolerate any systemic treatment given functional status this would be an ongoing discussion
DVT prophylaxis: Mechanical prophylaxis
Reviewed at length with multiple son and daughter 04/01
Reviewed clinical course and potential for reversible process, treatment options down the road
Family has made it clear that she would be DNR, patient confirmed this
Disposition efforts
Subjective Data
-
Date of Service:
Date of Service: April 01, 2024
Subjective:
Patient feeling well. Continues with airway clearance measures. Coughs up about 1 tablespoon of dark mucus, no further blood. Denies chest pain, nausea, abdominal pain. Moving bowels. Family at bedside
Objective Data
Data Reviewed
Vital Signs / I&O / Oxygen:
Vital Signs
Temp Pulse Resp BP Pulse Ox
98.2 F 72 22 150/91 95
04/01/24 11:19 04/01/24 08:55 04/01/24 08:55 04/01/24 08:33 04/01/24 08:55
Intake and Output
03/31/24 04/01/24 04/02/24
06:59 06:59 06:59
Intake Total 1200 / 1200
Output Total 1215 / 1215 250 / 250
Balance -15 / -15 -250 / -250
SaO2 95
Nasal Cannula flow liters per 6
minute
Physical Exam
General: Comfortable
HEENT: Normocephalic and Anicteric
Cardiovascular: S1-S2, Regular Rhythm, Murmur (n) and Rub (n)
Respiratory: Wheeze (n), Crackles (n), Rhonchi (few), Non-Labored Respirations, Stridor (n), Crepitus (n), Egophony (n) and Other (Decreased right base, decreased overall)
GI: Soft, Non Distended and Non Tender
Neurology: Awake, Alert and No Motor Deficits (Generally weak, able to sit up without assistance)
Skin: Cyanosis (n), Jaundice (n) and Bruising (Few scattered ecchymoses)
Labs/Micro/Reports
Lab Data
04/01/24 05:19
04/01/24 05:19
[2024-04-01] MEDS: FERRLECIT 110 MG IV (14:13)
[2024-04-01] MEDS: FLUSH (NSS) 2 FLUSH IV (14:13)
--- NOTE | 2024-04-01 14:20 | PTCARENOTE ---
OOB in chair eating lunch and visiting with family members
--- NOTE | 2024-04-01 16:16 | W.PN.HOSP.TC ---
Today's Communication/Plan
-
resume Metoprolol
Assessment / Plan
Assessment / Plan
Assessment:
Patient is an 84 y/o F, hx of COPD, hx of PUD, CAD, orthostasis on midodrine, recent admission in December for acute PE/DVT on Xarelto, hx of AAA s/p repair presents to ER with hemoptysis. She underwent scheduled outpatient right sided thoracentesis
early on day of admission without any complications; 800 cc of dark serosanguineous pleural fluid was removed. Thoracentesis was performed with R sided effusion and know R FDG avid mass seen on PET imaging 1 week prior.
in ER, urgent CT Chest showed 5 cm hematoma with central enhancement consistent with active hemorrhage in the superior segment of the right lower lobe.
Acute on chronic hypoxic respiratory failure
- baseline 2L per daughter
- required Hi-ricky, now weaned to 4L/M with SaO2 93%
- wean as able
Reviewed with Dr. Thomas
CT scan of chest 03/27: 5 cm hematoma with central enhancement consistent with active hemorrhage in the superior segment of the right lower lobe
- at the level of FDG avid mass which was seen on the PET CT 03/22/2024
- likely related to mass/hemorrhaged vessel; no pneumothorax
- right lower lobe consolidation related to the hemorrhage as above with very small increased attenuation right pleural effusion compatible with hemothorax
- hold Xarelto. s/p K-Centra 03/27
Hgb 8.4-->7.8-1 unit-->8.9-->10.2
became very itchy after blood transfused (03/30) but no obvious evidence of rxn (no rash, etc). Benadryl ordered for symptom relief, modified by Dr. Thomas
- received 3rd unit PRBC 03/30
- continue steroids per pulmonary
- received Rocephin/Doxy x 2 days, now discontinued by pulmonary
- follow Physician Practice Administrator recs
Essential HTN
BP had been on the low side, currently 135-160/66-78. Will resume Metoprolol, but will use the Succinate version if only dosing daily
Hemothorax, Right sided
- unable to perform further drainage with IR 03/30; await final cytology, preliminary noted for high probability of malignancy
- chest US: Small recurrent right pleural effusion.
Airspace consolidation within the RIGHT lower lobe which may reflect patient's known intraperitoneal hematoma/brachial hemorrhage seen on prior CT.
Hypotension
- improving with COMPACT ASSEMBLER midodrine and IVF
SHAYY (pre-renal) on CKD stage 3b
- monitor with IVF and blood resuscitation; Cr is steady at 1.5-->1.2
- bladder scans prn
Right sided pulmonary mass
- PET last week showed 2.1 cm solid pulmonary nodule in the right lower lobe with an SUV max of 6.2. multiple hypermetabolic pleural soft tissue nodules in the right hemithorax. Soft tissue nodularity along the right anterior pleural surface with an
SUV max of 5.8 and 4.7. Additional pleural soft tissue nodularity at the inferior aspect of the right hemithorax with an SUV max of up to 4.8. Right suprahilar lymph nodes versus additional pleural nodules with an SUV max of 7.2. Pt is splinting
when asked to take a deep breath due to significant pleural pain
- follow up pathology of fluid
- OP Oncology followup
likely unprovoked LLE DVT with bilateral PE diagnosed 12/2023 (in setting of malignancy)
- holding Xarelto for active bleeding
Chronic anemia most likely related to malignancy
- low iron sats; continue IV iron
Hx Duodenal Ulcer/GERD
- continue PPI
HLD
CAD
- continue statin
- continue BB with parameters
Hx of orthostatic hypotension
- continue midodrine
COPD
AAA rupture s/p repair
DVT ppx: SCDs
Code: Full code confirmed with family
Met with Dariana salomon 03/31 and other family members today. Await results of cytology, cell type to determine whether pt is a candidate for ChemoRx vs palliative care
Anticipated Discharge: 24 - 48 hours
Subjective/Interval History
-
Date of Service: April 01, 2024
Awake, alert, conversant
Objective Data
-
Labs:
Laboratory Results
04/01/24
05:19
WBC 11.9 H
Hgb 10.2 L
Hct 32.1 L
Plt Count 217
Sodium 139
Potassium 4.7
Chloride 102
Carbon Dioxide 32 H
BUN 25 H
Creatinine 1.0
Glucose 92
Calcium 9.9
Vital Signs:
Vital Signs
Temp Pulse Resp BP Pulse Ox
98.3 F 100 21 135/66 96
04/01/24 15:15 04/01/24 15:38 04/01/24 15:38 04/01/24 15:38 04/01/24 15:38
I&O
03/31/24 04/01/24 04/02/24
06:59 06:59 06:59
Intake Total 1200 / 1200 530 / 530
Output Total 1215 / 1215 250 / 250
Balance -15 / -15 -250 / -250 530 / 530
Review of Systems
-
History Source: Patient and Family (reviewed with family in room)
Constitutional: Denies Fever
EENT: Reports No Symptoms Reported
Respiratory: Reports Trouble Breathing (slightly better)
Cardiac: Reports No Symptoms
Abdomen/GI: Reports No Symptoms
Physical Exam
-
General: Well Developed, Well Nourished and No Apparent Distress (at rest)
HEENT: Normocephalic, Atraumatic and Moist Mucous Membranes
Respiratory: Rales (rt sided rales with decreased BS and noted splinting); Negative Clear to Auscultation (splinting with shallow respirations, though taking slightly deeper breaths currently)
Cardiac: Regular Rhythm and S1/S2
GI: Soft, Nontender and Nondistended
Musculoskeletal: No Clubbing, No Cyanosis and No Edema
Neuro: Awake, Alert and Oriented
[2024-04-01] MEDS: STERILE WATER FOR INJECTION IV (17:51)
[2024-04-01] MEDS: PROTONIX 40 MG PO (17:54)
--- NOTE | 2024-04-01 18:28 | PTCARENOTE ---
Oxygen weaned to 4L NC, cough continues to be productive for brown thick sputum. IS at bedside, pt needs cues to utilize device.
[2024-04-01] MEDS: LIPITOR 80 MG PO (20:42)
[2024-04-01] MEDS: TOPROL XL 12.5 MG PO (20:42)
[2024-04-02] VITALS (15 sets, daily range): BP systolic 133–175; BP diastolic 72–95; PULSE 75; O2SAT 96; BMI 22.5
[2024-04-02 05:58] LABS: % Basophils 0.1 % (0-2); % Eosinophils 0.5 % (0-6); % Immature Granulocytes 0.6 % (0-0.5); % Lymphocytes 11.7 % (20.5-51.1); % Monocytes 7.8 % (1.7-9.3); % Neutrophils 79.3 % (42.2-75.2); Absolute Eosinophils 0.1 10^3/uL (0-0.7); Absolute Immature Granulocytes 0.1 10^3/uL (0-0.05); Absolute Lymphocytes 1.5 10^3/uL (1.2-3.4); Absolute Neutrophils 10.1 10^3/uL (1.4-6.5); Hematocrit 35.3 % (37.0-47.0); Hemoglobin 11.2 g/dL (12.0-16.0); Mean Corp Hgb Conc. 31.7 g/dL (33.0-37.0); Mean Corpuscular Hgb 26.6 pg (27.0-31.0); Mean Corpuscular Volume 83.8 fL (81.0-99.0); Mean Platelet Volume 9.9 fL (7.4-10.4); Nucleated Red Blood Cells % 0 %; Platelet Count 237 10^3/uL (130-400); Red Blood Cell Count 4.21 10^6/uL (4.20-5.40); Red Cell Dist. Width 17.2 % (11.5-14.5); White Blood Cell Count 12.7 10^3/uL (4.8-10.8)
--- NOTE | 2024-04-02 06:29 | W.PN.HOSP.TC ---
Today's Communication/Plan
-
DC planning
Assessment / Plan
Assessment / Plan
Physical Exam
-
General:Elderly, chronically ill looking, weak looking, in bed. No Apparent Distress (at rest)
HEENT: Normocephalic, Atraumatic and Moist Mucous Membranes
Respiratory: limited with some fine rales at bases, I did not hear wheezes
Cardiac: S1S2
GI: Soft, Nontender and Nondistended
Musculoskeletal: No Clubbing, No Cyanosis and No Edema
Neuro: Awake, Alert and Oriented to self and surroundings, followed commands.
Psyc: no agitation
Assessment:
Patient is an 84 y/o F, hx of COPD, hx of PUD, CAD, orthostasis on midodrine, recent admission in December for acute PE/DVT on Xarelto, hx of AAA s/p repair presents to ER with hemoptysis. She underwent scheduled outpatient right sided thoracentesis
early on day of admission without any complications; 800 cc of dark serosanguineous pleural fluid was removed. Thoracentesis was performed with R sided effusion and know R FDG avid mass seen on PET imaging 1 week prior.
in ER, urgent CT Chest showed 5 cm hematoma with central enhancement consistent with active hemorrhage in the superior segment of the right lower lobe.
Dysuria, sent urine for testing
Acute on chronic hypoxic respiratory failure
- baseline 2L per daughter
- required Hi-ricky, now weaned to 4L/M with SaO2 93%
- wean as able
Reviewed with Dr. Thomas
CT scan of chest 03/27: 5 cm hematoma with central enhancement consistent with active hemorrhage in the superior segment of the right lower lobe
- at the level of FDG avid mass which was seen on the PET CT 03/22/2024
- likely related to mass/hemorrhaged vessel; no pneumothorax
- right lower lobe consolidation related to the hemorrhage as above with very small increased attenuation right pleural effusion compatible with hemothorax
- hold Xarelto. s/p K-Centra 03/27
Hgb 8.4-->7.8-1 unit-->8.9-->10.2
became very itchy after blood transfused (03/30) but no obvious evidence of rxn (no rash, etc). Benadryl ordered for symptom relief, modified by Dr. Thomas
- received 3rd unit PRBC 03/30
- continue steroids , taper slowly, from 30 mg to 20 mg in am
- received Rocephin/Doxy x 2 days, now discontinued by pulmonary
- follow Communications Tech recs
Essential HTN
BP had been on the low side, currently 135-160/66-78. Resumed Metoprolol, but will use the Succinate version if only dosing daily
Hemothorax, Right sided
- unable to perform further drainage with IR 03/30; await final cytology, preliminary noted for high probability of malignancy
- chest US: Small recurrent right pleural effusion.
Airspace consolidation within the RIGHT lower lobe which may reflect patient's known intraperitoneal hematoma/brachial hemorrhage seen on prior CT.
Hypotension
- improving with BODS DEVELOPER midodrine and IVF
SHAYY (pre-renal) on CKD stage 3b
- monitor with IVF and blood resuscitation; Cr is steady at 1.5-->1.2
- bladder scans prn
Right sided pulmonary mass
- PET last week showed 2.1 cm solid pulmonary nodule in the right lower lobe with an SUV max of 6.2. multiple hypermetabolic pleural soft tissue nodules in the right hemithorax. Soft tissue nodularity along the right anterior pleural surface with an
SUV max of 5.8 and 4.7. Additional pleural soft tissue nodularity at the inferior aspect of the right hemithorax with an SUV max of up to 4.8. Right suprahilar lymph nodes versus additional pleural nodules with an SUV max of 7.2. Pt is splinting
when asked to take a deep breath due to significant pleural pain
- follow up pathology of fluid
- OP Oncology followup
likely unprovoked LLE DVT with bilateral PE diagnosed 12/2023 (in setting of malignancy)
- holding Xarelto for active bleeding
Chronic anemia most likely related to malignancy
- low iron sats; s/p 5 doses of IV iron
Hx Duodenal Ulcer/GERD
- continue PPI
HLD
CAD
- continue statin
- continue BB with parameters
Hx of orthostatic hypotension
- continue midodrine
COPD
AAA rupture s/p repair
DVT ppx: SCDs
Code: Full code confirmed with family
Total time spent to see the patient, examine the patient, review data and lab results, and discuss the treatment plan with patient, nurse around 55 minutes
Anticipated Discharge: 24 - 48 hours
Subjective/Interval History
-
Date of Service: April 02, 2024
No chest pain or fevers
pt denies worsening sob
Later, had dysuria
Objective Data
-
Labs:
Laboratory Results
04/02/24
05:41
WBC 12.7 H
Hgb 11.2 L
Hct 35.3 L
Plt Count 237
Vital Signs:
Vital Signs
Temp Pulse Resp BP Pulse Ox
97.6 F 69 20 173/73 96
04/02/24 03:36 04/02/24 04:00 04/02/24 04:00 04/02/24 04:00 04/02/24 04:00
I&O
03/31/24 04/01/24 04/02/24
06:59 06:59 06:59
Intake Total 1200 / 1200 630 / 630
Output Total 1215 / 1215 250 / 250 650 / 650
Balance -15 / -15 -250 / -250 -20 / -20
[2024-04-02] MEDS: DELTASONE 30 MG PO (08:23)
[2024-04-02] MEDS: ProAmatine PO (08:23)
[2024-04-02] MEDS: TIMOPTIC 0.5% OPHTHALMIC SOLUTION 1 DROP BOTH EYES (08:24)
[2024-04-02] MEDS: TOPROL XL 12.5 MG PO (08:24)
[2024-04-02 10:16] LABS: Urine Albumin Trace (Neg - Trace); Urine Bilirubin Negative (Negative); Urine Character Clear (Clear); Urine Color Yellow; Urine Glucose Negative (Negative); Urine Ketone Negative (Negative); Urine Leukocyte Negative (Negative); Urine Nitrite Negative (Negative); Urine Occult Blood Negative (Negative); Urine Specific Gravity 1.015 (<1.030); Urine Urobilinogen Negative (Neg - 1+); Urine pH 6.5 (5.0-9.0)
--- NOTE | 2024-04-02 13:57 | W.PN.PUL3 ---
Today's Communication / Plan
-
Continue with slow wean of prednisone -currently on 30 mg daily - start 20mg daily tomorrow
CXR today shows worsening right-sided opacification likely due to mixture of atelectasis + pleural effusion � IR consulted for repeat thoracentesis on the right, and effusion is more than moderate then would consider putting Pleurx, at least prior
to discharge if in line with patient's GOC
Consult Oncology
If patient is discharged, recommend outpatient palliative care consultation
Wean oxygen as able
PT/OT, ambulate
Indefinitely hold anticoagulation
Guarded prognosis - hospice is reasonable
Assessment
-
84-year-old female with history of significant COPD, severe emphysema per imaging, history of GERD/duodenal ulcer, coronary disease with history of abdominal aortic aneurysm rupture status postrepair, orthostatic hypotension, history of PE December
2023 on anticoagulation, presents with acute hemoptysis after thoracentesis earlier this morning. Patient has had outpatient imaging worrisome for underlying malignancy. We are asked to help from critical care standpoint
Acute hemoptysis
Less than 50 cc
Intra-pulmonary parenchymal hematoma
Resolved suspected related to underlying pulmonary mass/nodule
Worrisome for malignant process, likely due to SCLC
Right lower lobe alveolar process, likely from bleeding
Large right sided malignant pleural effusion - due to small cell lung cancer
s/p right thoracentesis 03/27
1 L of dark fluid removed
Not enough for repeat thoracentesis per chest ultrasound
Multiple pulm nodules, subcarinal mass
Progressive per imaging
Abnormal PET scan worrisome for malignancy 03/22/2024 - likely due to SCLC
Anemia
s/p transfusion, 2 units
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
Conditions present prior to admission
Mild aortic stenosis, moderate pulm hypertension
PA pressure 58
Normal biventricular function per echo 01/17/2024
Anemia
History of GERD/peptic ulcer disease
Coronary disease
History of AAA repair
Orthostatic hypotension
Hypertension/hyperlipidemia
Plan/recommendations
At this time, patient appears to be improved objectively and subjectively
Oxygen has been weaned down from 10 L to 4 L
Issues primarily are with exertion from bed to chair
Tachycardia has improved, tachypnea has improved. Hemoglobin increased to 10.2 after 1 unit transfusion -Hb is 11.2 today
Has received a total of 3 units since admission
Urine output marginal, creatinine bumped up to 1.5, decreased to 1.0. Of note received contrast for CT chest - Cr is now stable today
Hemoptysis has not recurred
No fluid available for repeat thoracentesis
History of mild , moderate pulm hypertension noted
Normal biventricular function per echo December [address] chest and PET scan and prior CT imaging at length with patient and daughter
Reviewed images
I am concerned that she has progressive cancer
I am concerned that underlying tumor in the lung may be bleeding
Hematoma noted. I do not think this is related to her thoracentesis. She may have had some mild reexpansion effect possibly exacerbating oozing/bleeding
Patient is status post Kcentra. Anticoagulation/Xarelto has been discontinued
Right-sided pleural fluid is positive for metastatic small cell lung cancer, which is extensive stage disease -the medium range of survival for extensive disease is 8-13 months, with less than 5% of patient surviving 2 years
Family is aware of this diagnosis and they wish to speak to oncology
I also recommended that the family/patient meet with palliative care once they are diagnosed, unless they choose to pursue inpatient hospice (as palliative care meets with patients in the outpatient setting currently here at )
Moving forward
Wean oxygen as able
If develops worsening hemoptysis, [id number] and we can start nebulized TXA
Increase activity, PT/OT
Discontinue antibiotics
Continue prednisone, slow taper
Airway clearance, encourage cough
Continue to quantify hemoptysis
Continue nebulized ipratropium every 6 hours prn
Given her severity of her underlying lung disease, suspicion for underlying tumor which is actively bleeding, do not think she would be liberated from the ventilator.
I reviewed with both her and her daughter that this may be a terminal event
Will follow chest x-ray intermittently as clinically indicated
remains off Xarelto indefinitely given pulmonary hemorrhage/bleed
She is at high risk for recurrent thromboembolic disease. This was reviewed with family and patient
Recent echocardiogram December 2023 with normal biventricular function, PA pressure 58, valvular disease noted
TINY stockings, sequential stockings
Follow-up creatinine. Urine output marginal, incontinent
Bladder scan intermittently
Creatinine improved
Do not feel that repeat imaging or CT angiogram is helpful in this case given her underlying malignancy, as catheter directed coil embolization is potentially futile
This will be an ongoing discussion with interventional radiology
Regarding her small cell lung cancer, I doubt patient will be able to tolerate any systemic treatment given functional status this would be an ongoing discussion
DVT prophylaxis: Mechanical prophylaxis
Dr. Thomas reviewed at length with multiple son and daughter 04/01
Reviewed clinical course and potential for reversible process, treatment options down the road
Family has made it clear that she would be DNR, patient confirmed this
Dr. Barnard reviewed the diagnosis of small cell lung cancer with the patient and patient's daughter, Dariana, at length today (04/02).
Disposition efforts
Total time spent today was 35 minutes for this encounter. Time includes reviewing laboratory test/imaging results, reviewing pertinent medical records, obtaining and reviewing medical history, performing an appropriate exam, ordering medications,
tests and procedures. Time also includes documentation of this encounter, coordinating patient care and communicating with other healthcare professionals. Total time does not include separately billed tests performed on this date of service.
Subjective Data
-
Date of Service:
Date of Service: April 02, 2024
Chief Complaint: Pulmonary Follow Up
Subjective:
Patient was seen and evaluated today at bedside. Currently sitting in the chair with daughter Dariana at bedside. She is saturating 96% on 4 L/min nasal cannula. BP 133/73 and heart rate 100. She feels well, denies any chest pain, shortness of
breath, headache, abdominal pain, fevers or chills. The patient's pleural fluid on the right was sampled on 03/27/2024 which is now growing metastatic small cell lung cancer. The patient and the patient's daughter were made aware of this diagnosis.
They wish to speak to oncology.
Review of Systems
General: Other (Negative unless mentioned above)
Objective Data
Data Reviewed
Vital Signs / I&O / Oxygen:
Vital Signs
Temp Pulse Resp BP Pulse Ox
97.8 F 93 24 136/76 95
04/02/24 11:09 04/02/24 10:00 04/02/24 10:00 04/02/24 10:00 04/02/24 10:51
Intake and Output
04/01/24 04/02/24 04/03/24
06:59 06:59 06:59
Intake Total 630 / 630 300 / 300
Output Total 250 / 250 650 / 650 150 / 150
Balance -250 / -250 -20 / -20 150 / 150
SaO2 95
Nasal Cannula flow liters per 4
minute
Physical Exam
General: Comfortable
HEENT: Normocephalic and Anicteric
Cardiovascular: S1-S2, Murmur (n), Rub (n) and Peripheral Edema (Negative)
Respiratory: Wheeze (n), Crackles (n), Rhonchi (few), Non-Labored Respirations, Stridor (n), Crepitus (n), Egophony (n) and Other (Decreased right base, decreased overall)
GI: Soft, Non Distended and Non Tender
Neurology: Awake, Alert and No Motor Deficits (Generally weak, able to sit up without assistance)
Skin: Warm, Dry, Cyanosis (n), Jaundice (n) and Bruising (Few scattered ecchymoses)
Labs/Micro/Reports
Lab Data
04/02/24 05:41
04/01/24 05:19
[2024-04-02] MEDS: STERILE WATER FOR INJECTION IV (17:53)
--- NOTE | 2024-04-02 17:59 | PTCARENOTE ---
Assumed care of pt this am.Pt is alert and oriented x 3. Family stays with Patient. Resp dyspneic at rest and increased with exertion. Pt on 4L NC. Lungs coarse, rhonchi diminished bilateral Ambulating to bathroom with 1 assist and rolling walker.
Increased resp rate and effort but did not desaturate. Cough productive for thick brown sputum. Voiding clear yellow urine, UA sent today and results are WNL. Pt had reported feeling frequency. 2 view chest x-ray resulted. Dr. Barnard and Dr. Haynes
notified of completed results. Awaiting further orders.
[2024-04-02] MEDS: PROTONIX 40 MG PO (19:57)
--- NOTE | 2024-04-02 19:58 | PTCARENOTE ---
Pt resting, watching TV in chair. Son at bedside. Pt AAO, making needs known. Pt in 4 L NC 02, RR 22. Respirations even and unlabored. lungs diminished throughout . Pt in NSR on the monitor. Call light tin reach.
[2024-04-02] MEDS: LIPITOR 80 MG PO (22:01)
[2024-04-03] VITALS (13 sets, daily range): BP systolic 110–163; BP diastolic 62–93; PULSE 95; O2SAT 96; BMI 22.8
--- NOTE | 2024-04-03 06:32 | W.PN.HOSP.TC ---
Today's Communication/Plan
-
Await oncology to meet with family ( Daughter- Dariana)
c/w supportive care at this point
Thoracentesis, might need IVF post procedure
Assessment / Plan
Assessment / Plan
Physical Exam
-
General:Elderly, chronically ill looking, weak looking, in bed. Mild Apparent Distress (at rest)
HEENT: Normocephalic, Atraumatic and Moist Mucous Membranes
Respiratory: limited
Cardiac: S1S2
GI: Soft, Nontender and Nondistended
Musculoskeletal: No Clubbing, No Cyanosis and No Edema
Neuro: Awake, Alert and Oriented to self and surroundings, followed commands.
Psyc: no agitation
Assessment:
Patient is an 84 y/o F, hx of COPD, hx of PUD, CAD, orthostasis on midodrine, recent admission in December for acute PE/DVT on Xarelto, hx of AAA s/p repair presents to ER with hemoptysis. She underwent scheduled outpatient right sided thoracentesis
early on day of admission without any complications; 800 cc of dark serosanguineous pleural fluid was removed. Thoracentesis was performed with R sided effusion and know R FDG avid mass seen on PET imaging 1 week prior.
in ER, urgent CT Chest showed 5 cm hematoma with central enhancement consistent with active hemorrhage in the superior segment of the right lower lobe.
# Small cell lung cancer
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
new diagnosis
seems aggressive care with poor reparatory status and function
Right sided pulmonary mass, pathology c/w SCC
- PET last week showed 2.1 cm solid pulmonary nodule in the right lower lobe with an SUV max of 6.2. multiple hypermetabolic pleural soft tissue nodules in the right hemithorax. Soft tissue nodularity along the right anterior pleural surface with an
SUV max of 5.8 and 4.7. Additional pleural soft tissue nodularity at the inferior aspect of the right hemithorax with an SUV max of up to 4.8. Right suprahilar lymph nodes versus additional pleural nodules with an SUV max of 7.2. Pt is splinting
when asked to take a deep breath due to significant pleural pain
- Oncology followup
Consulted oncology
Prognosis is guarded
# Complete white out of right lung
for Thoracentesis today
#Dysuria, urine is clear
# Acute on chronic hypoxic respiratory failure
- baseline 2L per daughter
- required Hi-ricky, now weaned to 4L/M with SaO2 93%
CT scan of chest 03/27: 5 cm hematoma with central enhancement consistent with active hemorrhage in the superior segment of the right lower lobe
- at the level of FDG avid mass which was seen on the PET CT 03/22/2024
- likely related to mass/hemorrhaged vessel; no pneumothorax
- right lower lobe consolidation related to the hemorrhage as above with very small increased attenuation right pleural effusion compatible with hemothorax
- held Xarelto. s/p K-Centra 03/27
Hgb 8.4-->7.8-1 unit-->8.9-->10.2
became very itchy after blood transfused (03/30) but no obvious evidence of rxn (no rash, etc). Benadryl ordered for symptom relief, modified by Dr. Thomas
- received 3rd unit PRBC 03/30
- continue steroids , taper slowly, from 30 mg to 20 mg in am
- received Rocephin/Doxy x 2 days, now discontinued by pulmonary
- follow Animal Assisted Therapist recs
# Essential HTN
BP had been on the low side at times. Resumed Metoprolol, but will use the Succinate version if only dosing daily. Midodrine also is being used.
Hypotension
- improving with SOIL CHEMIST midodrine and IVF
Hx of orthostatic hypotension
- continue midodrine
SHAYY (pre-renal) on CKD stage 3b
- monitor with IVF and blood resuscitation; Cr is steady at 1.5-->1.2
- bladder scans prn
#LLE DVT with bilateral PE diagnosed 12/2023 (in setting of malignancy)
- holding Xarelto for active bleeding
#Chronic anemia most likely related to malignancy
- low iron sats; s/p 5 doses of IV iron
#Hx Duodenal Ulcer/GERD
- continue PPI
HLD
CAD
- continue statin
- continue BB with parameters
#COPD, tapering prednisone , c/w PRN Neb.
#AAA rupture s/p repair
DVT ppx: SCDs
Code: DNR
Total time spent to see the patient, examine the patient, review data and lab results, and discuss the treatment plan with patient, consultants, nurse around 65 minutes
Anticipated Discharge: 24 - 48 hours
Subjective/Interval History
-
Date of Service: April 03, 2024
SOB this morning
Objective Data
-
Vital Signs:
Vital Signs
Temp Pulse Resp BP Pulse Ox
97.6 F 74 31 140/65 98
04/03/24 04:14 04/03/24 02:00 04/03/24 02:00 04/03/24 02:00 04/03/24 02:00
I&O
04/01/24 04/02/24 04/03/24
06:59 06:59 06:59
Intake Total 630 / 630 720 / 720
Output Total 250 / 250 650 / 650 150 / 150
Balance -250 / -250 -20 / -20 570 / 570
--- NOTE | 2024-04-03 08:40 | PTCARENOTE ---
Patient received from casino shift manager. Patient resting comfortably in bed. AAO, VSS. No events noted overnight. No complaints of pain at this time. Currently on 4L N/C. Patient scheduled for Thoracentesis later this AM. Daughter at bedside. Call
carroll in reach.
[2024-04-03] MEDS: TIMOPTIC 0.5% OPHTHALMIC SOLUTION 1 DROP BOTH EYES (09:05)
[2024-04-03] MEDS: TOPROL XL 12.5 MG PO (09:05)
[2024-04-03] MEDS: DELTASONE 20 MG PO (09:05)
[2024-04-03] MEDS: ProAmatine PO (09:06)
--- NOTE | 2024-04-03 11:38 | CON.ONC ---
Impression
Impression
Extensive stage small cell lung cancer (widespread pleural involvement)
Poor performance status, ECOG=3
Plan
Plan
I discussed the situation with the patient and her daughter. I outlined that while there were treatments available for her condition, that it would be more likely that the treatments would do her harm than good. They all seem to have a good
understanding of this. I did tell them that a Pleurx catheter may be of benefit. We did not discuss hospice in any specific terms. My understanding is that she will be going to a skilled facility.
Patient History
History of Present Illness
Consult from Dr. Haynes regarding lung cancer
This 84-year-old woman was admitted with hemoptysis. Her history dates back to late December when she was diagnosed with a pulmonary embolus, as well as a 1.8 cm spiculated lesion in the right lung. A follow-up PET scan several weeks later showed
widespread pleural involvement as well, that was not visible on the initial CT scan. She underwent a thoracentesis and began coughing up blood. She does have a hematoma on the right at this time. She is due to have another thoracentesis.
Cytology yielded small cell lung cancer. PET scan did not reveal any disease outside of the right hemithorax. She denies any weight loss. She is not having pain. She was on oxygen after her discharge from her pulmonary embolus, 2 L. She was
able to walk with a little bit of assistance.
Past-Medical/Surgical History
She has had 2 separate surgeries for abdominal aortic aneurysm, the second 1 being for a ruptured aneurysm.
Social history: She is a former smoker.
Family history is noncontributory.
Patient Medication
�Medication �Instructions �Recorded �Confirmed �Last Taken �Type
atorvastatin 80 mg tablet (Lipitor) 80 mg PO HS High Cholesterol 01/16/24 03/27/24 03/26/24 History
cholecalciferol (vitamin D3) 50 50 mcg PO DAILY Supplement 01/16/24 03/27/24 03/27/24 History
mcg (2,000 unit) tablet (Vitamin
D3)
folic acid 1 mg tablet 1 mg PO DAILY Supplement 01/16/24 03/27/24 03/27/24 History
metoprolol tartrate 25 mg tablet 12.5 mg PO QPM Blood Pressure 01/16/24 03/27/24 03/26/24 History
midodrine 2.5 mg tablet 2.5 mg PO DAILY Blood Pressure 01/16/24 03/27/24 03/27/24 History
pantoprazole 40 mg tablet,delayed 40 mg PO QPM Gastrointestinal Issue 01/16/24 03/27/24 03/26/24 History
release (Protonix)
umeclidinium 62.5 mcg-vilanterol 1 inh inhalation R DAILY 01/16/24 03/27/24 03/27/24 History
25 mcg/actuation powdr for Lung/Breathing Issues
inhalation (Anoro Ellipta)
calcium carbonate (Calcium 600) 600 mg PO DAILY Supplement 03/27/24 03/27/24 03/27/24 History
evihszkxtiqu-ejtsgmui-aqonez tablet 1 tab PO DAILY Supplement 03/27/24 03/27/24 03/27/24 History
polyethylene glycol 3350 17 gram 0 g PO DAILY PRN constipation 03/27/24 03/27/24 3 Days Ago History
oral powder packet (Miralax) ~03/24/24
rivaroxaban 20 mg tablet (Xarelto) 20 mg PO DAILY Blood Clot 03/27/24 03/27/24 03/27/24 History
Prevention/Tx
timolol maleate 0.5 % eye drops 1 drp BOTH EYES DAILY Eye Condition 03/27/24 03/27/24 03/27/24 History
Active Medications
Generic Name Dose Route Start Last Admin
Trade Name Freq PRN Reason Stop Dose Admin
Atorvastatin Calcium 80 mg 03/27/24 22:00 04/02/24 22:01
Atorvastatin (Lipitor) 80 Mg Tablet PO 04/24/24 21:59 80 mg
HS ABILIO Administration
Sodium Chloride 500 mls @ 1,000 mls/hr 04/03/24 20:00
Nss IV
BID PRN
sob less than 95
Ipratropium [place] 0.5 mg 03/31/24 18:33
Ipratropium Nebs 0.5 Mg/2.5 Ml Ampul INH
R Q6HPRN PRN
SOB/WHEEZING
Metoprolol Succinate 12.5 mg 04/01/24 20:00 04/03/24 09:05
Metoprolol 12.5 Mg Extended Release Dose (1/2 Of 25 Mg Xl Tablet) PO 04/29/24 19:59 12.5 mg
DAILY ABILIO Administration
Midodrine 2.5 mg 03/28/24 08:00 04/03/24 09:06
Midodrine 5 Mg Tablet PO 04/25/24 07:59 Not Given
DAILY ABILIO
Pantoprazole Sodium 40 mg 03/27/24 18:00 04/02/24 19:57
Pantoprazole 40 Mg Delayed Release Tablet PO 04/24/24 17:59 40 mg
QPM ABILIO Administration
Prednisone 20 mg 04/02/24 08:41 04/03/24 09:05
Prednisone 10 Mg Tablet PO 04/27/24 07:59 20 mg
DAILY ABILIO Administration
Sodium Chloride 0 flush 03/27/24 18:00 04/01/24 14:13
Sodium Chloride 0.9% (Flush) Syringe IV 04/24/24 17:59 2 flush
PER PROTOCOL ABILIO Administration
Timolol Maleate 0 drop 03/28/24 08:00 04/03/24 09:05
Timolol 0.5% (Ophthalmic Solution) Bottle BOTH EYES 04/25/24 07:59 1 drop
DAILY ABILIO Administration
Review of Systems
-
All Other Systems: Reviewed and Negative
Physical Exam
-
Physical examination shows the patient to be in no acute distress, but quite weak, mildly short of breath at rest on oxygen.
HEENT exam is unremarkable.
There are no palpable nodes.
Chest reveals diminished breath sounds bilaterally, right greater than left.
The heart is regular with no murmur or gallop.
The abdomen is soft and nontender with no organomegaly or masses.
Extremities reveal +1 edema.
Neurologic is grossly intact.
Labs
Lab Results
WBC 12.7 10^3/uL (4.8-10.8) H 04/02/24 05:41
RBC 4.21 10^6/uL (4.20-5.40) 04/02/24 05:41
Hgb 11.2 g/dL (12.0-16.0) L 04/02/24 05:41
Hct 35.3 % (37.0-47.0) L 04/02/24 05:41
MCV 83.8 fL (81.0-99.0) 04/02/24 05:41
MCH 26.6 pg (27.0-31.0) L 04/02/24 05:41
MCHC 31.7 g/dL (33.0-37.0) L 04/02/24 05:41
RDW 17.2 % (11.5-14.5) H 04/02/24 05:41
Plt Count 237 10^3/uL (130-400) 04/02/24 05:41
MPV 9.9 fL (7.4-10.4) 04/02/24 05:41
Abs Immat Gran (auto) 0.1 10^3/uL (0-0.05) H 04/02/24 05:41
Absolute Neuts (auto) 10.1 10^3/uL (1.4-6.5) H 04/02/24 05:41
Absolute Lymphs (auto) 1.5 10^3/uL (1.2-3.4) 04/02/24 05:41
Absolute Monos (auto) 1.0 10^3/uL (0.1-0.6) H 04/02/24 05:41
Absolute Eos (auto) 0.1 10^3/uL (0-0.7) 04/02/24 05:41
Absolute Basos (auto) 0.0 10^3/uL (0-0.2) 04/02/24 05:41
Immature Gran % 0.6 % (0-0.5) H 04/02/24 05:41
Neutrophils % 79.3 % (42.2-75.2) H 04/02/24 05:41
Lymphocytes % 11.7 % (20.5-51.1) L 04/02/24 05:41
Monocytes % 7.8 % (1.7-9.3) 04/02/24 05:41
Eosinophils % 0.5 % (0-6) 04/02/24 05:41
Basophils % 0.1 % (0-2) 04/02/24 05:41
Creatinine 1.0 mg/dL (0.6-1.0) 04/01/24 05:19
Vital Signs
Vital Signs
Temp Pulse Resp BP Pulse Ox
97.9 F 114 31 151/72 95
04/03/24 07:28 04/03/24 09:06 04/03/24 02:00 04/03/24 09:06 04/03/24 09:19
--- NOTE | 2024-04-03 12:38 | W.PN.PUL3 ---
Today's Communication / Plan
-
Continue with slow wean of prednisone - started 20 mg daily today
CXR yesterday afternoon shows worsening right-sided opacification likely due to mixture of atelectasis + pleural effusion � IR consulted -would recommend Pleurx catheter insertion given that this is extended stage small cell lung cancer, as long as
this is in line with patient's GOC
Can perform thoracentesis if PleurX/Asept insertion will be delayed while discharge planning is being figured out
Oncology consulted with recommendations appreciated
If patient is discharged, recommend outpatient palliative care consultation
Wean oxygen as able with goal SpO2 >90-94%
PT/OT, ambulate
Indefinitely hold anticoagulation
Guarded prognosis - hospice is reasonable and family is amenable to this - case management consult placed today
Assessment
-
84-year-old female with history of significant COPD, severe emphysema per imaging, history of GERD/duodenal ulcer, coronary disease with history of abdominal aortic aneurysm rupture status postrepair, orthostatic hypotension, history of PE December
2023 on anticoagulation, presents with acute hemoptysis after thoracentesis earlier this morning. Patient has had outpatient imaging worrisome for underlying malignancy. We are asked to help from critical care standpoint
Acute hemoptysis (non-life threatening) - resolved
Intra-pulmonary parenchymal hematoma
Resolved suspected related to underlying pulmonary mass/nodule (SCLC)
Right lower lobe alveolar process, likely from bleeding
Large right sided malignant pleural effusion - due to small cell lung cancer
s/p right thoracentesis 03/27
1 L of dark fluid removed
Not enough for repeat thoracentesis per chest ultrasound
Multiple pulm nodules, subcarinal mass
Progressive per imaging
Abnormal PET scan worrisome for malignancy 03/22/2024 - likely due to SCLC
Anemia
s/p transfusion, 2 units
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
Conditions present prior to admission
Mild aortic stenosis, moderate pulm hypertension
PA pressure 58
Normal biventricular function per echo 01/17/2024
Anemia
History of GERD/peptic ulcer disease
Coronary disease
History of AAA repair
Orthostatic hypotension
Hypertension/hyperlipidemia
Plan/recommendations
At this time, patient appears to be improved objectively and subjectively
Oxygen has been weaned down from 10 L to 4 L
Issues primarily are with exertion from bed to chair
Tachycardia has improved, tachypnea has improved. Hemoglobin increased to 10.2 after 1 unit transfusion -Hb is 11.2 on 04/02
Has received a total of 3 units since admission
Urine output marginal, creatinine bumped up to 1.5, decreased to 1.0 as of 04/01. Of note received contrast for CT chest
Hemoptysis has not recurred
No fluid available for repeat thoracentesis
History of mild , moderate pulm hypertension noted
Normal biventricular function per echo December [address] chest and PET scan and prior CT imaging at length with patient and daughter
Dr. Thomas had reviewed images
I personally reviewed her small cell lung cancer diagnosis alongside Dr. Haynes on 04/02/2024
Regarding her RLL pulmonary hematoma, this is likely due to her lung cancer. I do not think this is related to her thoracentesis. She may have had some mild reexpansion effect possibly exacerbating oozing/bleeding
Patient is status post Kcentra on 03/27. Anticoagulation/Xarelto has been discontinued
Right-sided pleural fluid is positive for metastatic small cell lung cancer, which is extensive stage disease -the medium range of survival for extensive disease is 8-13 months, with less than 5% of patient surviving 2 years
- Today, I introduced the concept of hospice to the patient and her 2 sons - they are interested. I will consult case management to initiate official enrollment into hospice, it appears they are interested in home hospice but want to possibly do
rehab if pt can tolerate it
Oncology consulted and recs appreciated - pt not a candidate for chemotherapy
I also recommend that the family/patient meet with palliative care once they are discharged, unless they choose to pursue inpatient hospice (as palliative care meets with patients in the outpatient setting only here at )
Moving forward
Wean oxygen as able
If develops worsening hemoptysis, [id number] and we can start nebulized TXA
Increase activity as tolerated, PT/OT
Discontinued antibiotics
Continue prednisone, slow taper - currently at 20mg daily
Airway clearance, encourage cough
Nebulized bronchodilators prn
Given her severity of her underlying lung disease, suspicion for underlying tumor which is actively bleeding, do not think she would be liberated from the ventilator.
I reviewed with both her and her daughter that this may be a terminal event
She is now DNR/DNI as of 03/30/2024
Will follow chest x-ray intermittently as clinically indicated
remains off Xarelto indefinitely given pulmonary hemorrhage/bleed
She is at high risk for recurrent thromboembolic disease. This was reviewed with family and patient
Recent echocardiogram December 2023 with normal biventricular function, PA pressure 58, valvular disease noted
TINY stockings, sequential stockings
Continue to trend sCr, UOP (although pt. incontinent)
Bladder scan intermittently
Do not feel that repeat imaging or CT angiogram is helpful in this case given her underlying malignancy, as catheter directed coil embolization is potentially futile
DVT prophylaxis: Mechanical prophylaxis
Dr. Thomas reviewed at length with multiple son and daughter 04/01
Reviewed clinical course and potential for reversible process, treatment options down the road
Family has made it clear that she would be DNR, patient confirmed this
Dr. Barnard reviewed the diagnosis of small cell lung cancer with the patient and patient's daughter, Dariana, at length on 04/02.
Disposition efforts
Total time spent today was 35 minutes for this encounter. Time includes reviewing laboratory test/imaging results, reviewing pertinent medical records, obtaining and reviewing medical history, performing an appropriate exam, ordering medications,
tests and procedures. Time also includes documentation of this encounter, coordinating patient care and communicating with other healthcare professionals. Total time does not include separately billed tests performed on this date of service.
Subjective Data
-
Date of Service:
Date of Service: April 03, 2024
Chief Complaint: Pulmonary Follow Up
Subjective:
Patient seen today with 2 sons at bedside. I answered all their questions. Pt does not have any particular complaints at this time. She remains on O2 at 4L/min. I discussed hospice with her and her 2 sons, as well as a PleurX catheter, which she
is amenable to. She currently appears comfortable, denies CP, CHILDERS, abd pain, SOB at rest, N/V/f/c.
Review of Systems
General: Other (negative unless mentioned above)
Objective Data
Data Reviewed
Vital Signs / I&O / Oxygen:
Vital Signs
Temp Pulse Resp BP Pulse Ox
97.8 F 75 19 144/79 97
04/03/24 11:16 04/03/24 10:00 04/03/24 10:00 04/03/24 10:00 04/03/24 10:00
Intake and Output
04/02/24 04/03/24 04/04/24
06:59 06:59 06:59
Intake Total 630 / 630 720 / 720
Output Total 650 / 650 150 / 150
Balance -20 / -20 570 / 570
SaO2 97
Nasal Cannula flow liters per 4
minute
Physical Exam
General: Respiratory Distress (negative) and Comfortable
HEENT: Normocephalic and Anicteric
Cardiovascular: S1-S2, Murmur (n), Rub (n) and Peripheral Edema (Negative)
Respiratory: Wheeze (n), Crackles (n), Rhonchi (few), Non-Labored Respirations, Stridor (n), Crepitus (n), Egophony (n) and Other (Decreased overall (R>L))
GI: Soft, Non Distended and Non Tender
Neurology: Awake, Alert and No Motor Deficits (Generally weak, able to sit up without assistance)
Skin: Warm, Dry, Cyanosis (n), Jaundice (n) and Bruising (Few scattered ecchymoses)
Labs/Micro/Reports
Lab Data
04/02/24 05:41
04/01/24 05:19
--- NOTE | 2024-04-03 12:56 | CM ---
Patient with Hx lung CA with Dx hemothorax, Acute on chronic hypoxic respiratory failure. Plan repeat thoracentesis, possible indwelling pleural catheter. O2 4L. PT recommends SNF vs Home, OT recommends SNF vs. HH.
Spoke with Dr Bunch; no plans for any chemo. He feels patient will not benefit much from SNF for rehab due to her prognosis.
Met with patient, daughter Dariana & 2 sons; they just met with oncologist and are hoping pleural catheter will be placed. Daughter is interested in pursuing SNF for short term rehab before patient returning home to stay with her. Family consensus
is a SNF in the [facility], as Dtr lives in [place] and 2 sons live in [place]. Provided SNF list and ratings for local SNFs - daughter will review and let CM know her preferences.
Messages with Akil Ball & Julio C; Dr Barnard will speak with the family about Palliative Care.
Plan follow up with daughter about SNF preferences.
--- NOTE | 2024-04-03 14:31 | PTCARENOTE ---
Updated patient and family about new plan for Thoracentesis and Asept catheter for tomorrow 04/04. Was initially anticipating Thoracentesis today.
--- NOTE | 2024-04-03 15:00 | W.PN.UPDATE ---
Update Note
Progress Note Update
IR was asked to place an Asept catheter in this patient. We are waiting for discharge planning to be confirmed before we will place the catheter to be sure the receiving facility can manage an Asept. In the meantime, we can do the thoracentesis
if needed.
[2024-04-03] MEDS: PROTONIX 40 MG PO (17:39)
[2024-04-03] MEDS: LIPITOR 80 MG PO (21:09)
[2024-04-04] VITALS (22 sets, daily range): BP systolic 95–162; BP diastolic 54–96; PULSE 77; O2SAT 96; BMI 22.4
--- NOTE | 2024-04-04 04:13 | PTCARENOTE ---
Pt assisted to ambulate to bedside commode to urinate. Pt desatting to 80%, Pt increased to 5L from 4L 02.
--- NOTE | 2024-04-04 06:42 | W.PN.HOSP.TC ---
Today's Communication/Plan
-
will d/w Dariana cornell planning in am
Assessment / Plan
Assessment / Plan
Physical Exam
-
General:Elderly, chronically ill looking, weak looking, in bed. Mild Apparent Distress (at rest)
HEENT: Normocephalic, Atraumatic and Moist Mucous Membranes
Respiratory: limited
Cardiac: S1S2
GI: Soft, Nontender and Nondistended
Musculoskeletal: No Clubbing, No Cyanosis and No Edema
Neuro: Awake, Alert and Oriented to self and surroundings, followed commands.
Psyc: no agitation
Assessment:
Patient is an 84 y/o F, hx of COPD, hx of PUD, CAD, orthostasis on midodrine, recent admission in December for acute PE/DVT on Xarelto, hx of AAA s/p repair presents to ER with hemoptysis. She underwent scheduled outpatient right sided thoracentesis
early on day of admission without any complications; 800 cc of dark serosanguineous pleural fluid was removed. Thoracentesis was performed with R sided effusion and know R FDG avid mass seen on PET imaging 1 week prior.
in ER, urgent CT Chest showed 5 cm hematoma with central enhancement consistent with active hemorrhage in the superior segment of the right lower lobe.
# Small cell lung cancer
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
new diagnosis
seems aggressive care with poor reparatory status and function
Right sided pulmonary mass, pathology c/w SCC
- PET last week showed 2.1 cm solid pulmonary nodule in the right lower lobe with an SUV max of 6.2. multiple hypermetabolic pleural soft tissue nodules in the right hemithorax. Soft tissue nodularity along the right anterior pleural surface with an
SUV max of 5.8 and 4.7. Additional pleural soft tissue nodularity at the inferior aspect of the right hemithorax with an SUV max of up to 4.8. Right suprahilar lymph nodes versus additional pleural nodules with an SUV max of 7.2. Pt is splinting
when asked to take a deep breath due to significant pleural pain
- Oncology followup
Consulted oncology
Prognosis is guarded
# Complete white out of right lung
s/p Successful ultrasound-guided thoracentesis, yielding 500 cc of dark serosanguineous pleural fluid.
#Dysuria, urine is clear
# Acute on chronic hypoxic respiratory failure
- baseline 2L per daughter
- required Hi-ricky, now weaned to 4L/M with SaO2 93%
CT scan of chest 03/27: 5 cm hematoma with central enhancement consistent with active hemorrhage in the superior segment of the right lower lobe
- at the level of FDG avid mass which was seen on the PET CT 03/22/2024
- likely related to mass/hemorrhaged vessel; no pneumothorax
- right lower lobe consolidation related to the hemorrhage as above with very small increased attenuation right pleural effusion compatible with hemothorax
- held Xarelto. s/p K-Centra 03/27
Hgb 8.4-->7.8-1 unit-->8.9-->10.2
became very itchy after blood transfused (03/30) but no obvious evidence of rxn (no rash, etc). Benadryl ordered for symptom relief, modified by Dr. Thomas
- received 3rd unit PRBC 03/30
- continue steroids , taper slowly, from 30 mg to 20 mg in am
- received Rocephin/Doxy x 2 days, now discontinued by pulmonary
- follow [employer] Supervisor recs
# Essential HTN
BP had been on the low side at times. Resumed Metoprolol, but will use the Succinate version if only dosing daily. Midodrine also is being used.
Hypotension
- improving with BODY [employer]ER midodrine and IVF
Hx of orthostatic hypotension
- continue midodrine
SHAYY (pre-renal) on CKD stage 3b
- monitor with IVF and blood resuscitation; Cr is steady at 1.5-->1.2
- bladder scans prn
#LLE DVT with bilateral PE diagnosed 12/2023 (in setting of malignancy)
- holding Xarelto for active bleeding
#Chronic anemia most likely related to malignancy
- low iron sats; s/p 5 doses of IV iron
#Hx Duodenal Ulcer/GERD
- continue PPI
HLD
CAD
- continue statin
- continue BB with parameters
#COPD, tapering prednisone , c/w PRN Neb.
#AAA rupture s/p repair
DVT ppx: SCDs
Code: DNR
Total time spent to see the patient, examine the patient, review data and lab results, and discuss the treatment plan with patient, consultants, nurse around 55 minutes
Anticipated Discharge: 24 - 48 hours
Subjective/Interval History
-
Date of Service: April 04, 2024
seen earlier
Objective Data
-
Vital Signs:
Vital Signs
Temp Pulse Resp BP Pulse Ox
98.2 F 87 21 120/67 97
04/04/24 03:34 04/04/24 02:00 04/04/24 02:00 04/04/24 02:00 04/04/24 02:00
I&O
04/02/24 04/03/24 04/04/24
06:59 06:59 06:59
Intake Total 630 / 630 720 / 720
Output Total 650 / 650 150 / 150 300 / 300
Balance -20 / -20 570 / 570 -300 / -300
--- NOTE | 2024-04-04 08:00 | PTCARENOTE ---
Patient received from night assistant. Patient resting comfortably in bed. AAO, VSS. No events noted overnight. No complaints of pain at this time. Currently on 5L N/C, little desaturation overnight. Patient scheduled for Thoracentesis later this
AM after being scheduled for yesterday initially. Daughter and son at bedside. Call carroll in reach.
--- NOTE | 2024-04-04 08:36 | W.PN.ONC2 ---
Addendum entered and electronically signed by Whit Nj MD 04/04/24 12:10:
Met w/ patient and family w/ TRANSPORTATION CLERK
agree w/ A&P as outlined below
Original Note:
Today's Communication / Plan
-
consider Pleurx
Impression
Impression
Extensive stage small cell lung cancer (widespread pleural involvement)
Poor performance status, ECOG=3
Plan
Plan
PS precludes systemic therapy
d/c planning for SNF for restorative goals, would engage outpatient palliative care to facilitate continued advance care planning and GOC
Subjective/Objective
Chief Complaint
breathing improved post thora
Subjective
family at bedside
Vital Signs:
Vital Signs
Temp Pulse Resp BP Pulse Ox
98 F 87 21 120/67 97
04/04/24 07:28 04/04/24 02:00 04/04/24 02:00 04/04/24 02:00 04/04/24 02:00
Lab Results:
Laboratory Data
WBC 12.7 10^3/uL (4.8-10.8) H 04/02/24 05:41
Hgb 11.2 g/dL (12.0-16.0) L 04/02/24 05:41
Plt Count 237 10^3/uL (130-400) 04/02/24 05:41
PT 19.9 Sec (11.4-14.6) H 03/28/24 07:27
INR 1.68 03/28/24 07:27
APTT 41.5 Sec (23.4-35.0) H 03/27/24 13:30
eGFR 55.21 04/01/24 05:19
Physical Exam
HEENT exam is unremarkable.
There are no palpable nodes.
Chest reveals diminished breath sounds bilaterally, right greater than left.
The heart is regular with no murmur or gallop.
The abdomen is soft and nontender with no organomegaly or masses.
Extremities reveal +1 edema.
Neurologic is grossly intact.
Review of Systems
Review of Systems
Review of systems notable for subjective, otherwise negative.
--- NOTE | 2024-04-04 10:20 | W.PN.PUL3 ---
Today's Communication / Plan
-
Continue with slow wean of prednisone - currently at 20 mg daily
CXR on 04/02/2024 afternoon shows worsening right-sided opacification likely due to mixture of atelectasis + pleural effusion � IR consulted -would recommend Pleurx catheter insertion given that this is extended stage small cell lung cancer, as long
as this is in line with patient's GOC
Performed thoracentesis today given her PleurX/Asept insertion will be delayed while discharge planning is being figured out
CT Chest tomorrow AM to assess R-hemithorax, pleural space, and assess degree of tumor vs atelectasis
Oncology consulted with recommendations appreciated
If patient is discharged, recommend outpatient palliative care consultation
Wean oxygen as able with goal SpO2 >90-94%
PT/OT, ambulate
Indefinitely hold anticoagulation
Guarded prognosis - hospice is reasonable and family is amenable to this - case management consult placed today
I discussed hospice and Pleurx with the patient and patient's daughter, Dariana, today. I answered all their questions. They wish to have patient go to some form of rehab prior to going home, at which point she will transition to home hospice at
that time. I told the patient and Dariana that the patient has likely weeks�months to live.
Assessment
-
84-year-old female with history of significant COPD, severe emphysema per imaging, history of GERD/duodenal ulcer, coronary disease with history of abdominal aortic aneurysm rupture status postrepair, orthostatic hypotension, history of PE December
2023 on anticoagulation, presents with acute hemoptysis after thoracentesis earlier this morning. Patient has had outpatient imaging worrisome for underlying malignancy. We are asked to help from critical care standpoint
Impression:
Acute hemoptysis (non-life threatening) - resolved
Intra-pulmonary parenchymal hematoma
Resolved - suspected to be related to underlying SCLC
Right lower lobe alveolar process, likely from bleeding
Large right sided malignant pleural effusion - due to small cell lung cancer
s/p right thoracentesis 03/27
1 L of dark fluid removed
Not enough for repeat thoracentesis per chest ultrasound
Multiple pulm nodules, subcarinal mass
Progressive per imaging
Abnormal PET scan worrisome for malignancy 03/22/2024 - likely due to SCLC
Anemia
s/p transfusion, 2 units
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
Conditions present prior to admission
Mild aortic stenosis, moderate pulm hypertension
PA pressure 58
Normal biventricular function per echo 01/17/2024
Anemia
History of GERD/peptic ulcer disease
Coronary disease
History of AAA repair
Orthostatic hypotension
Hypertension/hyperlipidemia
Plan/recommendations
At this time, patient appears to be improved objectively and subjectively
Oxygen has been weaned down from 10 L to 4-6 L
Issues primarily are with exertion from bed to chair
Tachycardia has resolved, tachypnea has improved. Hemoglobin increased to 10.2 after 1 unit transfusion -Hb is 11.2 on 04/02
Has received a total of 3 units since admission
Urine output marginal, creatinine bumped up to 1.5, decreased to 1.0 as of 04/01. Of note received contrast for CT chest
Hemoptysis has not recurred
She underwent R-sided thoracentesis today to help her symptoms - 500cc removed of dark serosanguineous fluid
History of mild , moderate pulm hypertension noted
Normal biventricular function per echo December [address] chest and PET scan and prior CT imaging at length with patient and daughter
Dr. Thomas had reviewed images
I personally reviewed her small cell lung cancer diagnosis alongside Dr. Haynes on 04/02/2024, and re-inforced her prognosis today indicating she has weeks-months left. This was reinforced by Oncology as well. I also discussed role of hospice and
pleurX catheter insertion, which would allow her to have quality of life once she is back home
Regarding her RLL pulmonary hematoma, this is likely due to her lung cancer. I do not think this is related to her thoracentesis. She may have had some mild reexpansion effect possibly exacerbating oozing/bleeding
Patient is status post Kcentra on 03/27. Anticoagulation/Xarelto has been discontinued
Right-sided pleural fluid is positive for metastatic small cell lung cancer, which is extensive stage disease -the medium range of survival for extensive disease is 8-13 months, with less than 5% of patient surviving 2 years
- On 04/03, I introduced the concept of hospice to the patient and her 2 sons - they are interested. I consulted case management to initiate official enrollment into hospice, it appears they are interested in home hospice but want to possibly do
rehab if pt can tolerate it
- Hence they do not want to enroll into hospice at this time, until she has completed rehab (likely subacute rehab)
Oncology consulted and recs appreciated - pt not a candidate for chemotherapy
I also recommend that the family/patient meet with palliative care once they are discharged
Wean oxygen as able
If develops worsening hemoptysis, [id number] and we can start nebulized TXA
Increase activity as tolerated, PT/OT
Discontinued antibiotics
Continue prednisone, slow taper - currently at 20mg daily
Ok to stop CPT as pt not expectorating much with chest PT; encourage cough; flutter valve
Nebulized bronchodilators prn
Given her severity of her underlying lung disease, suspicion for underlying tumor which is actively bleeding, do not think she would be liberated from the ventilator.
I reviewed with both her and her daughter that this may be a terminal event
She is now DNR/DNI as of 03/30/[address] Chest tomorrow to assess degree of tumor vs atelectasis vs extrinsic airway compression vs pleural fluid
She did undergo thoracentesis today, hence i do not expect there to be a large amount of fluid tomorrow
She will obtain PleurX just prior to discharge once the pt and family has picked a rehab facility for her to go to
Remains off Xarelto indefinitely given pulmonary hemorrhage/bleed
She is at high risk for recurrent thromboembolic disease. This was reviewed with family and patient
Recent echocardiogram December 2023 with normal biventricular function, PA pressure 58, valvular disease noted
TINY stockings, sequential stockings
Continue to trend sCr, UOP (although pt. incontinent)
Bladder scan intermittently
DVT prophylaxis: Mechanical prophylaxis
Dr. Thomas reviewed at length with multiple son and daughter 04/01
Reviewed clinical course and potential for reversible process, treatment options down the road
Family has made it clear that she would be DNR, patient confirmed this
Dr. Barnard reviewed the diagnosis of small cell lung cancer with the patient and patient's daughter, Dariana, at length on 04/02 and again today (04/04)
Disposition efforts; we will continue to briefly follow.
Total time spent today was 35 minutes for this encounter. Time includes reviewing laboratory test/imaging results, reviewing pertinent medical records, obtaining and reviewing medical history, performing an appropriate exam, ordering medications,
tests and procedures. Time also includes documentation of this encounter, coordinating patient care and communicating with other healthcare professionals. Total time does not include separately billed tests performed on this date of service.
Subjective Data
-
Date of Service:
Date of Service: April 04, 2024
Chief Complaint: Pulmonary Follow Up
Subjective:
Pt and daughter, Dariana, seen this afternoon. Underwent thora today, 500cc removed with some improvement in CXR with better RUL aeration. Pt sitting in chair in NAD. I discussed the patient's prognosis, as well as hospice and PleurX catheter
insertion. Pt and Dariana want the pt to go to some form of rehab before coming home, to hopefully allow her to get stronger before she gets home and starts home hospice, which is the plan. I answered all of their questions to best of my ability to
their satisfaction. The pt feels ok, currently on 6L/min NC, breathing comfortably. HR 88. She denies chest pain, SOB at rest, abd pain, N/V/f/c.
Review of Systems
General: Other (negative unless mentioned above)
Objective Data
Data Reviewed
Vital Signs / I&O / Oxygen:
Vital Signs
Temp Pulse Resp BP Pulse Ox
98.0 F 103 18 139/79 92
04/04/24 08:50 04/04/24 09:27 04/04/24 09:27 04/04/24 09:27 04/04/24 09:23
Intake and Output
04/03/24 04/04/24 04/05/24
06:59 06:59 06:59
Intake Total 720 / 720
Output Total 150 / 150 300 / 300 100 / 100
Balance 570 / 570 -300 / -300 -100 / -100
SaO2 92
Nasal Cannula flow liters per 6
minute
Physical Exam
General: Respiratory Distress (negative) and Comfortable
HEENT: Normocephalic and Anicteric
Cardiovascular: S1-S2, Murmur (n), Rub (n) and Peripheral Edema (Negative)
Respiratory: Wheeze (n), Crackles (n), Rhonchi (few), Non-Labored Respirations, Stridor (n), Crepitus (n), Egophony (n) and Other (Decreased overall (R>L))
GI: Soft, Non Distended and Non Tender
Neurology: Awake, Alert and No Motor Deficits (Generally weak, able to sit up without assistance)
Skin: Warm, Dry, Cyanosis (n), Jaundice (n) and Bruising (Few scattered ecchymoses)
Labs/Micro/Reports
Lab Data
04/02/24 05:41
04/01/24 05:19
[2024-04-04] MEDS: ProAmatine 2.5 MG PO (10:26)
[2024-04-04] MEDS: DELTASONE 20 MG PO (10:27)
[2024-04-04] MEDS: TOPROL XL 12.5 MG PO (10:27)
[2024-04-04] MEDS: TIMOPTIC 0.5% OPHTHALMIC SOLUTION 1 DROP BOTH EYES (10:27)
--- NOTE | 2024-04-04 10:42 | CM ---
Addendum entered by Minal Combs RN 04/04/24 14:24:
Met with patient, daughter and son- they are declining hospice and palliative care. Patient & family want SNF for rehab with pleural catheter.
SNF referrals placed.
Plan follow up SNF referrals.
Original Note:
Patient with Hx lung CA with Dx hemothorax, Acute on chronic hypoxic respiratory failure. Thoracentesis today. Plan possible indwelling pleural catheter.
CM Consult: Hospice
Spoke with patient's daughter Dariana. She is not ready for hospice consult and wants to speak with Anel Haynes and Akil about that. She has selected [facility] [place] [facility] SNFs as her preferences. Daughter was made aware
that SNF referrals will be made once family decides about rehab vs hospice. Daughter understands that not all facilities accept patients with pleural catheters and IR will place catheter once an accepting SNF is found.
Plan follow up with daughter about hospice and make SNF referrals.
[2024-04-04] MEDS: PROTONIX 40 MG PO (17:16)
--- NOTE | 2024-04-04 20:40 | PTCARENOTE ---
Received pt from maricarmen RN. Pt is AAOx3, KLAWOCK, flat/withdrawn. NSR on the monitor. Received pt on 6L midflow pt weaned to 4L, O2 sat 98%, lungs coarse/rhonchi. Pt assisted to the BR x1 w/ RW. SCDs in place. Pt is laying comfortable in bed with call
carroll in reach.
[2024-04-04] MEDS: LIPITOR 80 MG PO (21:00)
[2024-04-05] VITALS (12 sets, daily range): BP systolic 105–136; BP diastolic 49–81; BMI 22.3
[2024-04-05] MEDS: DELTASONE 20 MG PO (10:00)
[2024-04-05] MEDS: ProAmatine 2.5 MG PO (10:01)
[2024-04-05] MEDS: TIMOPTIC 0.5% OPHTHALMIC SOLUTION 1 DROP BOTH EYES (10:01)
[2024-04-05] MEDS: TOPROL XL 12.5 MG PO (10:04)
--- NOTE | 2024-04-05 12:26 | W.PN.HOSP.TC ---
Today's Communication/Plan
-
Patient not in distress but unable to do mild exertion without significant hypoxia/ distress even on O2.
I d/w pt, and family. Time is limited and elidia for the patient. Very important to provide comfort care at this point. Per discussion, they would like home with hospice but to achieve that goal, will need to start home set up. I asked hospice
nurse to help us start the process. cath lab manager was updated.
It is tough and sad situation. Not easy for the pt. Family appreciated the input.
Assessment / Plan
Assessment / Plan
Physical Exam
-
General:Elderly, chronically ill looking, weak looking, in bed. Mild Apparent Distress (at rest)
HEENT: Normocephalic, Atraumatic and Moist Mucous Membranes
Respiratory: limited
Cardiac: S1S2
GI: Soft, Nontender and Nondistended
Musculoskeletal: No Clubbing, No Cyanosis and No Edema
Neuro: Awake, Alert and Oriented to self and surroundings, followed commands.
Psyc: no agitation
Assessment:
Patient is an 84 y/o F, hx of COPD, hx of PUD, CAD, orthostasis on midodrine, recent admission in December for acute PE/DVT on Xarelto, hx of AAA s/p repair presented to ER with hemoptysis. She underwent scheduled outpatient right sided thoracentesis
early on day of admission without any complications; 800 cc of dark serosanguineous pleural fluid was removed. Thoracentesis was performed with R sided effusion and know R FDG avid mass seen on PET imaging 1 week prior.
in ER, urgent CT Chest showed 5 cm hematoma with central enhancement consistent with active hemorrhage in the superior segment of the right lower lobe.
# Small cell lung cancer
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
new diagnosis
seems aggressive care with poor reparatory status and function
Right sided pulmonary mass, pathology c/w SCC
- PET last week showed 2.1 cm solid pulmonary nodule in the right lower lobe with an SUV max of 6.2. multiple hypermetabolic pleural soft tissue nodules in the right hemithorax. Soft tissue nodularity along the right anterior pleural surface with an
SUV max of 5.8 and 4.7. Additional pleural soft tissue nodularity at the inferior aspect of the right hemithorax with an SUV max of up to 4.8. Right suprahilar lymph nodes versus additional pleural nodules with an SUV max of 7.2. Pt is splinting
when asked to take a deep breath due to significant pleural pain
s/p Successful ultrasound-guided thoracentesis, yielding 500 cc of dark serosanguineous pleural fluid. Total of 2 thoracenteses on 03/27 and 04/04 but fluid is forming again.
- Oncology evaluated the pt, not a candidate for chemotherapy, recommended hospice
# Complete white out of right lung with atelectasis/ collapse and reaccumulation of malignant fluid
d/w pulmonary, fluid seemed loculated. Pleurx might help but no guarantee it will work or prevent rebuilding of the fluid
Patient not in distress but unable to do mild exertion without significant hypoxia/ distress even on high O2.
I d/w pt, and family. Time is limited and elidia for the patient. Very important to provide comfort care at this point. Per discussion, they would like home with hospice but to achieve that goal, will need to start home set up. I asked hospice
nurse to help us start the process. cath lab manager was updated.
It is tough and sad situation. Not easy for the pt. Family appreciated the input.
#Dysuria, urine is clear
# Acute on chronic hypoxic respiratory failure
- baseline 2L per daughter
- required Hi-ricky, now weaned to 4L/M with SaO2 93%
CT scan of chest 03/27: 5 cm hematoma with central enhancement consistent with active hemorrhage in the superior segment of the right lower lobe
- at the level of FDG avid mass which was seen on the PET CT 03/22/2024
- likely related to mass/hemorrhaged vessel; no pneumothorax
- right lower lobe consolidation related to the hemorrhage as above with very small increased attenuation right pleural effusion compatible with hemothorax
- held Xarelto. s/p K-Centra 03/27
Hgb 8.4-->7.8-1 unit-->8.9-->10.2
became very itchy after blood transfused (03/30) but no obvious evidence of rxn (no rash, etc). Benadryl ordered for symptom relief, modified by Dr. Thomas
- received 3rd unit PRBC 03/30
- continue steroids , taper slowly, from 30 mg to 20 mg and continue to taper.
- received Rocephin/Doxy x 2 days, now discontinued by pulmonary
- follow Help Desk Operator recs
# Essential HTN
BP had been on the low side at times. Resumed Metoprolol, but will use the Succinate version if only dosing daily. Midodrine also is being used.
Hypotension
- improving with CHIEF PRIVACY OFFICER midodrine and IVF
Hx of orthostatic hypotension
- continue midodrine
SHAYY (pre-renal) on CKD stage 3b
- monitor with IVF and blood resuscitation; Cr is steady at 1.5-->1.2
- bladder scans prn
#LLE DVT with bilateral PE diagnosed 12/2023 (in setting of malignancy)
- holding Xarelto for active bleeding
#Chronic anemia most likely related to malignancy
- low iron sats; s/p 5 doses of IV iron
#Hx Duodenal Ulcer/GERD
- continue PPI
HLD
CAD
- continue statin
- continue BB with parameters
#COPD, tapering prednisone , c/w PRN Neb.
#AAA rupture s/p repair
DVT ppx: SCDs
Code: DNR
Total time spent to see the patient, examine the patient, review data and lab results, and discuss the treatment plan with patient, consultants, nurse around 55 minutes
Anticipated Discharge: > 48 hours
Subjective/Interval History
-
Date of Service: April 05, 2024
She is sitting comfortably in chair, denies sob or chest pain
Objective Data
-
Vital Signs:
Vital Signs
Temp Pulse Resp BP Pulse Ox
97.7 F 123 20 117/49 95
04/05/24 07:13 04/05/24 10:04 04/05/24 08:00 04/05/24 10:04 04/05/24 10:37
I&O
04/04/24 04/05/24 04/06/24
06:59 06:59 06:59
Intake Total 200 / 200
Output Total 300 / 300 250 / 250 100 / 100
Balance -300 / -300 -50 / -50 -100 / -100
--- NOTE | 2024-04-05 12:39 | W.PN.ONC2 ---
Today's Communication / Plan
-
d/c planning in progress
Impression
Impression
Extensive stage small cell lung cancer (widespread pleural involvement)
Poor performance status, ECOG=3
Plan
Plan
PS precludes systemic therapy
d/c planning for SNF
OP palliative care recommended for continued advanced care planning and GOC
Subjective/Objective
Chief Complaint
no new complaints
met with pt and family at bedside, questions answered
Subjective
breathing unchanged
denies pain
Vital Signs:
Vital Signs
Temp Pulse Resp BP Pulse Ox
97.8 F 123 20 117/49 95
04/05/24 11:00 04/05/24 10:04 04/05/24 08:00 04/05/24 10:04 04/05/24 10:37
Lab Results:
Laboratory Data
WBC 12.7 10^3/uL (4.8-10.8) H 04/02/24 05:41
Hgb 11.2 g/dL (12.0-16.0) L 04/02/24 05:41
Plt Count 237 10^3/uL (130-400) 04/02/24 05:41
PT 19.9 Sec (11.4-14.6) H 03/28/24 07:27
INR 1.68 03/28/24 07:27
APTT 41.5 Sec (23.4-35.0) H 03/27/24 13:30
eGFR 55.21 04/01/24 05:19
Physical Exam
HEENT exam is unremarkable.
Chest reveals diminished breath sounds bilaterally, right greater than left.
The heart is regular with no murmur
The abdomen is soft and nontender
Extremities reveal +1 edema.
Neurologic is grossly intact.
Review of Systems
Review of Systems
notable for subjective, otherwise negative
--- NOTE | 2024-04-05 13:08 | CM ---
Patient with Hx lung CA with Dx hemothorax, Acute on chronic hypoxic respiratory failure. O2 6L midflow.
Spoke with Dr Haynes; she met with the patient and family and they agreed to hospice - daughter was tearful. She would like patient evaluated for [facility]. Pleural catheter is not needed.
Met with patient and family; they agree to meet with Hospice nurse. Discussion about hospice benefits for SNF or home deferred at this time due to possible [facility]. Offered immunology teacher for spiritual support- patient/family declined.
Referral to [facility].
Plan follow up after seen by Hospice.
--- NOTE | 2024-04-05 13:22 | W.PN.PUL3 ---
Today's Communication / Plan
-
Continue prednisone - currently at 20 mg daily - slow wean
CXR on 04/02/2024 afternoon shows worsening right-sided opacification likely due to mixture of atelectasis + pleural effusion � IR consulted -would recommend Pleurx catheter insertion given that this is extended stage small cell lung cancer, as long
as this is in line with patient's GOC - patient not sure if she wants a PleurX (see below)
Pt still not sure if she wants to go home on hospice or stay here in the hospital. Pleurx/Asept insertion will be postponed for now, possibly canceled as patient does not want to be 'poked anymore.'
If patient is discharged, recommend outpatient palliative care consultation
Indefinitely hold anticoagulation
Guarded prognosis - hospice is reasonable and family is amenable to this - case management consult placed on 04/04 - family refused hospice at that time; wanted rehab - pt not able to participate in rehab; hospice is most appropriate for this patient.
Assessment
-
84-year-old female with history of significant COPD, severe emphysema per imaging, history of GERD/duodenal ulcer, coronary disease with history of abdominal aortic aneurysm rupture status postrepair, orthostatic hypotension, history of PE December
2023 on anticoagulation, presents with acute hemoptysis after thoracentesis earlier this morning. Patient has had outpatient imaging worrisome for underlying malignancy. We are asked to help from critical care standpoint
Impression:
Acute hemoptysis (non-life threatening) - resolved
Intra-pulmonary parenchymal hematoma
Resolved - suspected to be related to underlying SCLC
Right lower lobe alveolar process, likely from bleeding
Large right sided malignant pleural effusion - due to small cell lung cancer
Multiple pulm nodules, subcarinal mass
Progressive per imaging
Abnormal PET scan worrisome for malignancy 03/22/2024 - likely due to SCLC
Anemia s/p transfusion, 2 units
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
Conditions present prior to admission
Mild aortic stenosis, moderate pulm hypertension
PA pressure 58
Normal biventricular function per echo 01/17/2024
Anemia
History of GERD/peptic ulcer disease
Coronary disease
History of AAA repair
Orthostatic hypotension
Hypertension/hyperlipidemia
Plan/recommendations
At this time, patient appears to be improved objectively and subjectively
Oxygen has been weaned down from 10 L to 4-6 L
Issues primarily are with exertion from bed to chair
Tachycardia has resolved, tachypnea has improved. Hemoglobin increased to 10.2 after 1 unit transfusion -Hb is 11.2 on 04/02
Has received a total of 3 units since admission
Urine output marginal, creatinine bumped up to 1.5, decreased to 1.0 as of 04/01. Of note received contrast for CT chest
Hemoptysis has not recurred
She underwent R-sided thoracentesis today to help her symptoms - 500cc removed of dark serosanguineous fluid
History of mild , moderate pulm hypertension noted
Normal biventricular function per echo December [address] chest and PET scan and prior CT imaging at length with patient and daughter
Dr. Thomas had reviewed images
I personally reviewed her small cell lung cancer diagnosis alongside Dr. Haynes on 04/02/2024, and reinforced her prognosis on 04/04 + again today indicating she has weeks-months left. This was reinforced by Oncology as well. I also discussed role of
hospice and pleurX catheter insertion, which would allow her to have quality of life once she is back home
-CT chest today shows large right-sided pleural effusion, with marked right hemithorax compressive atelectasis as well as tumor. Patient wishes to hold off on Pleurx for now as she does not want to be 'poked anymore.'
Regarding her RLL pulmonary hematoma, this is likely due to her lung cancer. I do not think this is related to her thoracentesis. She may have had some mild reexpansion effect possibly exacerbating oozing/bleeding
Patient is status post Kcentra on 03/27. Anticoagulation/Xarelto has been discontinued
Right-sided pleural fluid is positive for metastatic small cell lung cancer, which is extensive stage disease -the medium range of survival for extensive disease is 8-13 months, with less than 5% of patient surviving 2 years
- On 04/03, I introduced the concept of hospice to the patient and her 2 sons - they are interested. I consulted case management to initiate official enrollment into hospice, it appears they are interested in home hospice but want to possibly do
rehab if pt can tolerate it
- Hence they do not want to enroll into hospice at this time, until she has completed rehab (likely subacute rehab)
Oncology consulted and recs appreciated - pt not a candidate for chemotherapy
I also recommend that the family/patient meet with palliative care once they are discharged
Wean oxygen as able
If develops worsening hemoptysis, [id number] and we can start nebulized TXA
Increase activity as tolerated, PT/OT
Discontinued antibiotics
Continue prednisone, slow taper - currently at 20mg daily
Stopped CPT as pt not expectorating much with chest PT; encourage cough; flutter valve
Nebulized bronchodilators prn
Given her severity of her underlying lung disease, suspicion for underlying tumor which is actively bleeding, do not think she would be liberated from the ventilator.
I reviewed with both her and her daughter that this may be a terminal event
She is now DNR/DNI as of 03/30/2024
She did undergo thoracentesis on 04/04 removing 500 cc of dark serosanguineous pleural fluid
Patient also is not sure if she even wants to go home on hospice as she would end up going to her daughter's house ([place]), which the patient is not comfortable with.
The patient says that she would rather just stay here in the hospital.
I told the patient and son that they should discuss amongst themselves what they would want to do for mom. Pleurx could then be brought up once official decision on where Meghna wants to is made.
Rehab is off the table as the pt gets easily tachycardic, tachypneic and desaturates with activity. Rehab is not appropriate for her at this time - hospice is appropriate.
Remains off Xarelto indefinitely given pulmonary hemorrhage/bleed
She is at high risk for recurrent thromboembolic disease. This was reviewed with family and patient
Recent echocardiogram December 2023 with normal biventricular function, PA pressure 58, valvular disease noted
TINY stockings, sequential stockings
Continue to trend sCr, UOP (although pt. incontinent)
Bladder scan intermittently
DVT prophylaxis: Mechanical prophylaxis
Dr. Thomas reviewed at length with multiple son and daughter 04/01
Reviewed clinical course and potential for reversible process, treatment options down the road
Family has made it clear that she would be DNR, patient confirmed this
Dr. Barnard reviewed the diagnosis of small cell lung cancer with the patient and patient's daughter, Dariana, at length on 04/02 and again today (04/04)
Disposition efforts; we will continue to briefly follow.
Total time spent today was 35 minutes for this encounter. Time includes reviewing laboratory test/imaging results, reviewing pertinent medical records, obtaining and reviewing medical history, performing an appropriate exam, ordering medications,
tests and procedures. Time also includes documentation of this encounter, coordinating patient care and communicating with other healthcare professionals. Total time does not include separately billed tests performed on this date of service.
Data:
CT Chest 04-05-2024:
1.).There has been significant worsening in the interval since the 03/27/2024 examination with very large right-sided pleural effusion and near complete atelectasis of the right lung. There is partial but incomplete aeration of the right upper lobe.
There is soft tissue throughout the right mainstem bronchus which may be tumor, hemorrhage or mucus secretions.
Bronchoscopy may be useful for further evaluation.
2). Centrilobular emphysema.
3). Atherosclerosis
4). Aortic stent in the upper abdomen
5). 10 cm hepatic cyst
Subjective Data
-
Date of Service:
Date of Service: April 05, 2024
Chief Complaint: Pulmonary Follow Up
Subjective:
Patient seen and evaluated. Patient's son at bedside. Patient currently on 5 L/min nasal cannula sitting in bed and breathing comfortably. CT chest findings reviewed, Plejohnnyx discussed and she does not want to be 'poked anymore.' She also wants
to think about it some more. She currently denies chest pain, headache, abdominal pain, shortness of breath, fevers or chills.
Review of Systems
General: Other (Negative unless mentioned above)
Objective Data
Data Reviewed
Vital Signs / I&O / Oxygen:
Vital Signs
Temp Pulse Resp BP Pulse Ox
97.8 F 123 20 117/49 95
04/05/24 11:00 04/05/24 10:04 04/05/24 08:00 04/05/24 10:04 04/05/24 10:37
Intake and Output
04/04/24 04/05/24 04/06/24
06:59 06:59 06:59
Intake Total 200 / 200
Output Total 300 / 300 250 / 250 100 / 100
Balance -300 / -300 -50 / -50 -100 / -100
SaO2 95
Nasal Cannula flow liters per 6
minute
Physical Exam
General: Respiratory Distress (negative) and Comfortable
HEENT: Normocephalic and Anicteric
Cardiovascular: S1-S2, Murmur (n), Rub (n) and Peripheral Edema (Negative)
Respiratory: Wheeze (n), Crackles (n), Rhonchi (few), Non-Labored Respirations, Stridor (n), Crepitus (n), Egophony (n) and Other (Decreased overall (R>L))
GI: Soft, Non Distended and Non Tender
Neurology: Awake, Alert and No Motor Deficits (Generally weak, able to sit up without assistance)
Skin: Warm, Dry, Cyanosis (n), Jaundice (n) and Bruising (Few scattered ecchymoses)
Labs/Micro/Reports
Lab Data
04/02/24 05:41
04/01/24 05:19
--- NOTE | 2024-04-05 14:20 | PTCARENOTE ---
Assumed care of patient this morning. She is aaox3, [place]. On monitor, she is SR but with exertion she is ST, HR 120s. Pt is currently on 6L NC. At rest pulse ox remains 94% or greater. With minimal exertion, patient has dropped to 84-86%. Pt appears
ANN at the time of exertion. For example, just transferring from chair to BSC. Pt is able to raise from chair herself and uses RW with assistance. She has been slightly unsteady at times. Assessment, care and VS as charted.
--- NOTE | 2024-04-05 14:57 | HOSPNOTE ---
Spoke with patient and daughter and explained hospice and the philosophy. The patient is in agreement to take morphine if needed. The daughter stated that if the patient could not remain here if they make the decision the patient would go home with
daughter on hospice services. The plan is to follow up tomorrow with a decision.
[2024-04-05] MEDS: PROTONIX 40 MG PO (17:58)
[2024-04-05] MEDS: LIPITOR 80 MG PO (21:06)
[2024-04-06] VITALS (7 sets, daily range): BP systolic 105–147; BP diastolic 57–78; BMI 22.1
--- NOTE | 2024-04-06 07:43 | W.PN.HOSP.TC ---
Today's Communication/Plan
-
dc planning
add low dose Morphine for respiratory distress
Assessment / Plan
Assessment / Plan
Physical Exam
-
General:Elderly, chronically ill looking, weak looking, in bed. Mild Apparent Distress (at rest)
HEENT: Normocephalic, Atraumatic and Moist Mucous Membranes
Respiratory: limited
Cardiac: S1S2
GI: Soft, Nontender and Nondistended
Musculoskeletal: No Clubbing, No Cyanosis and No Edema
Neuro: Awake, Alert and Oriented to self and surroundings, followed commands.
Psyc: no agitation
Assessment:
Patient is an 84 y/o F, hx of COPD, hx of PUD, CAD, orthostasis on midodrine, recent admission in December for acute PE/DVT on Xarelto, hx of AAA s/p repair presented to ER with hemoptysis. She underwent scheduled outpatient right sided thoracentesis
early on day of admission without any complications; 800 cc of dark serosanguineous pleural fluid was removed. Thoracentesis was performed with R sided effusion and know R FDG avid mass seen on PET imaging 1 week prior.
in ER, urgent CT Chest showed 5 cm hematoma with central enhancement consistent with active hemorrhage in the superior segment of the right lower lobe.
# Small cell lung cancer
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
new diagnosis
seems aggressive care with poor reparatory status and function
Right sided pulmonary mass, pathology c/w SCC
- PET last week showed 2.1 cm solid pulmonary nodule in the right lower lobe with an SUV max of 6.2. multiple hypermetabolic pleural soft tissue nodules in the right hemithorax. Soft tissue nodularity along the right anterior pleural surface with an
SUV max of 5.8 and 4.7. Additional pleural soft tissue nodularity at the inferior aspect of the right hemithorax with an SUV max of up to 4.8. Right suprahilar lymph nodes versus additional pleural nodules with an SUV max of 7.2. Pt is splinting
when asked to take a deep breath due to significant pleural pain
s/p Successful ultrasound-guided thoracentesis, yielding 500 cc of dark serosanguineous pleural fluid. Total of 2 thoracenteses on 03/27 and 04/04 but fluid is forming again.
- Oncology evaluated the pt, not a candidate for chemotherapy, recommended hospice
# Complete white out of right lung with atelectasis/ collapse and reaccumulation of malignant fluid
d/w pulmonary, fluid seemed loculated. Pleurx might help but no guarantee it will work or prevent rebuilding of the fluid, recommended hospice.
Patient not in distress but unable to do mild exertion without significant hypoxia/ distress even on high O2.
I d/w pt, and family. Time is limited and elidia for the patient. Very important to provide comfort care at this point. Per discussion, they would like home with hospice but to achieve that goal, will need to start home set up. I asked hospice
nurse to help us start the process. business liaison manager was updated.
It is tough and sad situation. Not easy for the pt. Family appreciated the input.
#Dysuria, urine is clear
# Acute on chronic hypoxic respiratory failure
- baseline 2L per daughter
- required Hi-ricky, now weaned to 4L/M with SaO2 93%
CT scan of chest 03/27: 5 cm hematoma with central enhancement consistent with active hemorrhage in the superior segment of the right lower lobe
- at the level of FDG avid mass which was seen on the PET CT 03/22/2024
- likely related to mass/hemorrhaged vessel; no pneumothorax
- right lower lobe consolidation related to the hemorrhage as above with very small increased attenuation right pleural effusion compatible with hemothorax
- held Xarelto. s/p K-Centra 03/27
Hgb 8.4-->7.8-1 unit-->8.9-->10.2
became very itchy after blood transfused (03/30) but no obvious evidence of rxn (no rash, etc). Benadryl ordered for symptom relief, modified by Dr. Thomas
- received 3rd unit PRBC 03/30
- continue steroids , taper slowly, from 30 mg to 20 mg and continue to taper.
- received Rocephin/Doxy x 2 days, finished the course.
- follow [employer] recs
# Essential HTN
BP had been on the low side at times. Resumed Metoprolol, but will use the Succinate version if only dosing daily. Midodrine also is being used.
Hypotension
- improving with [employer] midodrine and IVF
Hx of orthostatic hypotension
- continue midodrine
SHAYY (pre-renal) on CKD stage 3b
- monitor with IVF and blood resuscitation; Cr is steady at 1.5-->1.2
- bladder scans prn
#LLE DVT with bilateral PE diagnosed 12/2023 (in setting of malignancy)
- holding Xarelto for active bleeding
#Chronic anemia most likely related to malignancy
- low iron sats; s/p 5 doses of IV iron
#Hx Duodenal Ulcer/GERD
- continue PPI
HLD
CAD
- continue statin
- continue BB with parameters
#COPD, tapering prednisone , c/w PRN Neb.
#AAA rupture s/p repair
DVT ppx: SCDs
Code: DNR
Total time spent to see the patient, examine the patient, review data and lab results, and discuss the treatment plan with patient, consultants, nurse around 55 minutes
Anticipated Discharge: 24 - 48 hours
Subjective/Interval History
-
Date of Service: April 06, 2024
No chest pain
No sob
No fevers
Objective Data
-
Vital Signs:
Vital Signs
Temp Pulse Resp BP Pulse Ox
98.3 F 95 32 130/57 99
04/06/24 03:15 04/06/24 06:00 04/06/24 06:00 04/06/24 06:00 04/06/24 02:00
I&O
04/05/24 04/06/24 04/07/24
06:59 06:59 06:59
Intake Total 200 / 200 240 / 240
Output Total 250 / 250 250 / 250
Balance -50 / -50 -10 / -10
[2024-04-06] MEDS: DELTASONE 20 MG PO (09:30)
[2024-04-06] MEDS: ProAmatine 2.5 MG PO (09:30)
[2024-04-06] MEDS: TOPROL XL 12.5 MG PO (09:30)
[2024-04-06] MEDS: TIMOPTIC 0.5% OPHTHALMIC SOLUTION BOTH EYES (09:32)
--- NOTE | 2024-04-06 11:09 | HOSPNOTE ---
Spoke at length with daughter and discussed hospice again. The plan is for patient to be discharged on Sunday 04/08 equipment will be ordered. Attending and CM in agreement with plan. Transport is needed. OOH DNR will be needed on chart.
--- NOTE | 2024-04-06 11:37 | W.PN.PUL3 ---
Today's Communication / Plan
-
Continue prednisone - currently at 20 mg daily - slow wean
CT chest on 04/05 shows large right-sided pleural effusion, with marked right hemithorax compressive atelectasis as well as tumor. Patient initially wanted to hold off on Pleurx for now as she does not want to be 'poked anymore.' Pleurx was
discussed again today, and given the higher benefit:risk ratio with chance for more quality of life with herself and her family over the next weeks�months, the patient has agreed to Pleurx at this time.
- I reached out to IR, and plan to insert Pleurx catheter on Tuesday prior to discharge to home hospice
Indefinitely hold anticoagulation
No additional pulmonary recommendations at this time. Pulmonary service will now sign off. Please call back with any questions.
Assessment
-
84-year-old female with history of significant COPD, severe emphysema per imaging, history of GERD/duodenal ulcer, coronary disease with history of abdominal aortic aneurysm rupture status postrepair, orthostatic hypotension, history of PE December
2023 on anticoagulation, presents with acute hemoptysis after thoracentesis earlier this morning. Patient has had outpatient imaging worrisome for underlying malignancy. We are asked to help from critical care standpoint
Impression:
Acute hemoptysis (non-life threatening) - resolved
Intra-pulmonary parenchymal hematoma
Resolved - suspected to be related to underlying SCLC
Right lower lobe alveolar process, likely from bleeding
Large right sided malignant pleural effusion - due to small cell lung cancer
Multiple pulm nodules, subcarinal mass
Progressive per imaging
Abnormal PET scan worrisome for malignancy 03/22/2024 - likely due to SCLC
Anemia s/p transfusion, 2 units
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
Conditions present prior to admission
Mild aortic stenosis, moderate pulm hypertension
PA pressure 58
Normal biventricular function per echo 01/17/2024
Anemia
History of GERD/peptic ulcer disease
Coronary disease
History of AAA repair
Orthostatic hypotension
Hypertension/hyperlipidemia
Plan/recommendations
At this time, patient appears to be improved objectively and subjectively
Oxygen has been weaned down from 10 L to 4-6 L
Issues primarily are with exertion from bed to chair
Tachycardia has improved, tachypnea has improved, however when she stands up and exerts himself she is tachycardic and tachypneic. Hemoglobin increased to 10.2 after 1 unit transfusion -Hb is 11.2 on 04/02
Has received a total of 3 units since admission
Urine output marginal, creatinine bumped up to 1.5, decreased to 1.0 as of 04/01. Of note received contrast for CT chest
Hemoptysis has not recurred
She underwent R-sided thoracentesis today to help her symptoms - 500cc removed of dark serosanguineous fluid
History of mild , moderate pulm hypertension noted
Normal biventricular function per echo December [address] chest and PET scan and prior CT imaging at length with patient and daughter
Dr. hTomas had reviewed images
I personally reviewed her small cell lung cancer diagnosis alongside Dr. Haynes on 04/02/2024, and reinforced her prognosis on 04/04 + again today indicating she has weeks-months left. This was reinforced by Oncology as well. I also discussed role of
hospice and pleurX catheter insertion, which would allow her to have quality of life once she is back home
-CT chest on 04/05 shows large right-sided pleural effusion, with marked right hemithorax compressive atelectasis as well as tumor. Patient initially wanted to hold off on Pleurx for now as she does not want to be 'poked anymore.'
-Pleurx was discussed again today, and given the higher benefit:risk ratio with chance for more quality of life with herself and her family over the next weeks�months, the patient has agreed to Pleurx at this time.
- I reached out to IR, and plan to insert Pleurx catheter on Tuesday prior to discharge to home hospice
Regarding her RLL pulmonary hematoma, this is likely due to her lung cancer. I do not think this is related to her thoracentesis. She may have had some mild reexpansion effect possibly exacerbating oozing/bleeding
Patient is status post Kcentra on 03/27. Anticoagulation/Xarelto has been discontinued
Right-sided pleural fluid is positive for metastatic small cell lung cancer, which is extensive stage disease -the medium range of survival for extensive disease is 8-13 months, with less than 5% of patient surviving 2 years
- On 04/03, I introduced the concept of hospice to the patient and her 2 sons - they are interested. Case management consulted to initiate official enrollment into hospice- pt awaiting home hospice at her daughter's home
- Hence they do not want to enroll into hospice at this time, until she has completed rehab (likely subacute rehab)
Oncology consulted and recs appreciated - pt not a candidate for chemotherapy
I also recommend that the family/patient meet with palliative care once they are discharged (this is unlikely to happen given patient's exquisite weakness with tachycardia/tachypnea with exertion)
Wean oxygen as able
If develops worsening hemoptysis, then we will TRX to full comfort
Discontinued antibiotics
Continue prednisone, slow taper - currently at 20mg daily
Stopped CPT as pt not expectorating much with chest PT; encourage cough; flutter valve
Nebulized bronchodilators prn
Given her severity of her underlying lung disease, suspicion for underlying tumor which is actively bleeding, do not think she would be liberated from the ventilator.
I reviewed with both her and her daughter that this may be a terminal event
She is now DNR/DNI as of 03/30/2024
She did undergo thoracentesis on 04/04 removing 500 cc of dark serosanguineous pleural fluid
Previously: Patient not sure if she even wants to go home on hospice as she would end up going to her daughter's house ([place]), which the patient is not comfortable with.
The patient says that she would rather just stay here in the hospital.
Update from today (04/06): Family has discussed the options, and Dariana and the patient Meghna, have agreed [facility]
Rehab is off the table as the pt gets easily tachycardic, tachypneic and desaturates with activity. Rehab is not appropriate for her at this time - hospice is appropriate.
Remains off Xarelto indefinitely given pulmonary hemorrhage/bleed
She is at high risk for recurrent thromboembolic disease. This was reviewed with family and patient
Recent echocardiogram December 2023 with normal biventricular function, PA pressure 58, valvular disease noted
TINY stockings, sequential stockings, only if in line with comfort
DVT prophylaxis: Mechanical prophylaxis
Dr. Thomas reviewed at length with multiple son and daughter 04/01
Reviewed clinical course and potential for reversible process, treatment options down the road
Family has made it clear that she would be DNR, patient confirmed this
Dr. Barnard reviewed the diagnosis of small cell lung cancer with the patient and patient's daughter, Dariana, at length on 04/02 and again on 04/04
No additional recommendations at this time � pulmonary service will now sign off. Thank you for allowing us to be involved in the care of this patient. Please reconsult if there are any additional questions/concerns, or if patient's respiratory
status deteriorates.
Total time spent today was 35 minutes for this encounter. Time includes reviewing laboratory test/imaging results, reviewing pertinent medical records, obtaining and reviewing medical history, performing an appropriate exam, ordering medications,
tests and procedures. Time also includes documentation of this encounter, coordinating patient care and communicating with other healthcare professionals. Total time does not include separately billed tests performed on this date of service.
Data:
CT Chest 04-05-2024:
1.).There has been significant worsening in the interval since the 03/27/2024 examination with very large right-sided pleural effusion and near complete atelectasis of the right lung. There is partial but incomplete aeration of the right upper lobe.
There is soft tissue throughout the right mainstem bronchus which may be tumor, hemorrhage or mucus secretions.
Bronchoscopy may be useful for further evaluation.
2). Centrilobular emphysema.
3). Atherosclerosis
4). Aortic stent in the upper abdomen
5). 10 cm hepatic cyst
Subjective Data
-
Date of Service:
Date of Service: April 06, 2024
Chief Complaint: Pulmonary Follow Up
Subjective:
Patient seen and evaluated today in the morning. Daughter, Dariana, and son at bedside. Patient in bed in no acute distress on midflow nasal cannula at 5 L/min. Patient denies chest pain, headache, abdominal pain, fevers or chills. I reviewed the
last CT chest in detail, and Pleurx was discussed. All questions were answered. Emotional support was provided. Patient appears comfortable and is awaiting to be discharged this weekend, likely Tuesday, to [facility] for [facility].
Review of Systems
General: Other (Negative unless mentioned above)
Objective Data
Data Reviewed
Vital Signs / I&O / Oxygen:
Vital Signs
Temp Pulse Resp BP Pulse Ox
98.0 F 110 20 105/58 95
04/06/24 19:05 04/06/24 19:05 04/06/24 19:05 04/06/24 19:05 04/06/24 20:30
Intake and Output
04/05/24 04/06/24 04/07/24
06:59 06:59 06:59
Intake Total 200 / 200 240 / 240
Output Total 250 / 250 250 / 250 550 / 550
Balance -50 / -50 -10 / -10 -550 / -550
SaO2 95
Nasal Cannula flow liters per 5
minute
Physical Exam
General: Respiratory Distress (negative) and Comfortable
HEENT: Normocephalic and Anicteric
Cardiovascular: S1-S2, Murmur (n), Rub (n) and Peripheral Edema (Negative)
Respiratory: Wheeze (n), Crackles (Right hemithorax), Rhonchi (few), Non-Labored Respirations, Stridor (n), Crepitus (n), Egophony (n) and Other (Decreased overall (R>L))
GI: Soft, Non Distended and Non Tender
Neurology: Awake, Alert and No Motor Deficits (Generally weak, able to sit up without assistance)
Skin: Warm, Dry, Cyanosis (n), Jaundice (n) and Bruising (Few scattered ecchymoses)
Labs/Micro/Reports
Lab Data
04/02/24 05:41
04/01/24 05:19
--- NOTE | 2024-04-06 14:59 | PTCARENOTE ---
Pt and family updated with plan of care, pt is downgraded to med surg level and comfort care, will be dc'd on tuesday to daughter's home. Pt ringing for assistance as needed, no complaints at this time. Pt stable on 5L of 02, x1 assist oob to bedside
commode as needed. Continuing to monitor.
--- NOTE | 2024-04-06 16:34 | CM ---
Patient with Hx lung CA with Dx hemothorax, Acute on chronic hypoxic respiratory failure. O2 5L midflow. Comfort care.
Spoke with [facility]; hospice can see the patient at home on Tuesday afternoon, and patient needs to arrive home by 2pm if possible. She is aware noon transport was arranged. Hospital bed, O2 and commode will be delivered on Sat. Patient
going to daughter's house: [address], [place] [address].
Spoke with patient's daughter Dariana; she agrees to d/c Sun with ambulance transport at noon. Daughter confirms home address (no steps at entrance).
Ambulance arranged by Brandie, [employer] operator for noon Tuesday. Ambulance forms on chart.
[facility] DNR Form on chart.
Plan home Sun 04/08 with Hospice by ambulance at noon.
--- NOTE | 2024-04-06 16:40 | W.PN.UPDATE ---
Update Note
Progress Note Update
Addendum
I received a call from Dr Barnard that he had discussion with pt and family, pt to have Pleurx for palliative purpose
Dr. Barnard to set up the catheter with IR.
End
[2024-04-06] MEDS: PROTONIX 40 MG PO (17:23)
[2024-04-07] MEDS: MORPHINE SULFATE 1 MG IV ×3 (00:50→22:03)
[2024-04-07] MEDS: FLUSH (NSS) 2 FLUSH IV (00:51)
--- NOTE | 2024-04-07 01:14 | PTCARENOTE ---
Pt remains on comfort measures. Son at bedside. Pt requested BSC to void. Assist of 1 to bsc then assisted back to bed. ANN, pt very tense when back in bed. Pt was asked if she would like Morphine and pt was concerned at first regarding use of
Morphine but this RN reassured pt is was not to facility anything but allow her to breath better. Pt was agreeable and is currently resting comfortably. Son remains at bedside. Will continue to monitor.
[2024-04-07 03:15] VITALS: BP 141/76
[2024-04-07 04:15] VITALS: BMI 21.9
--- NOTE | 2024-04-07 06:53 | W.PN.HOSP.TC ---
Today's Communication/Plan
-
comfort measures
Assessment / Plan
Assessment / Plan
Physical Exam
-
General:Elderly, chronically ill looking, weak looking, in bed. Mild Apparent Distress (at rest)
HEENT: Normocephalic, Atraumatic and Moist Mucous Membranes
Respiratory: limited with rales, not much air right side
Cardiac: S1S2
GI: Soft, Nontender and Nondistended
Musculoskeletal: No Clubbing, No Cyanosis and No Edema
Neuro: Awake, Alert and Oriented to self and surroundings, followed commands.
Psyc: no agitation
Assessment:
Patient is an 84 y/o F, hx of COPD, hx of PUD, CAD, orthostasis on midodrine, recent admission in December for acute PE/DVT on Xarelto, hx of AAA s/p repair presented to ER with hemoptysis. She underwent scheduled outpatient right sided thoracentesis
early on day of admission without any complications; 800 cc of dark serosanguineous pleural fluid was removed. Thoracentesis was performed with R sided effusion and know R FDG avid mass seen on PET imaging 1 week prior.
in ER, urgent CT Chest showed 5 cm hematoma with central enhancement consistent with active hemorrhage in the superior segment of the right lower lobe.
# Small cell lung cancer
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
new diagnosis
seems aggressive care with poor reparatory status and function
Right sided pulmonary mass, pathology c/w SCC
- PET last week showed 2.1 cm solid pulmonary nodule in the right lower lobe with an SUV max of 6.2. multiple hypermetabolic pleural soft tissue nodules in the right hemithorax. Soft tissue nodularity along the right anterior pleural surface with an
SUV max of 5.8 and 4.7. Additional pleural soft tissue nodularity at the inferior aspect of the right hemithorax with an SUV max of up to 4.8. Right suprahilar lymph nodes versus additional pleural nodules with an SUV max of 7.2. Pt is splinting
when asked to take a deep breath due to significant pleural pain
s/p Successful ultrasound-guided thoracentesis, yielding 500 cc of dark serosanguineous pleural fluid. Total of 2 thoracenteses on 03/27 and 04/04 but fluid is forming again.
- Oncology evaluated the pt, not a candidate for chemotherapy, recommended hospice
# Complete white out of right lung with atelectasis/ collapse and reaccumulation of malignant fluid
Fluid seemed loculated. Pleurx might help but no guarantee it will work or prevent rebuilding of the fluid, Pleurx catheter.
Patient in mild respiratory distress, shows significant sob/ hypoxia with mild exertion.
I d/w pt, and family. Time is limited and elidia for the patient. Very important to provide comfort care at this point.
Plan to dc home on hospice
IV morphine for sob/comfort
It is tough and sad situation. Not easy for the pt. Family appreciated the input.
#Dysuria, urine is clear
# Acute on chronic hypoxic respiratory failure
- baseline 2L per daughter
- required Hi-ricky, now weaned to 6L on rest.
CT scan of chest 03/27: 5 cm hematoma with central enhancement consistent with active hemorrhage in the superior segment of the right lower lobe
- at the level of FDG avid mass which was seen on the PET CT 03/22/2024
- likely related to mass/hemorrhaged vessel; no pneumothorax
- right lower lobe consolidation related to the hemorrhage as above with very small increased attenuation right pleural effusion compatible with hemothorax
- held Xarelto. s/p K-Centra 03/27
Hgb 8.4-->7.8-1 unit-->8.9-->10.2
became very itchy after blood transfused (03/30) but no obvious evidence of rxn (no rash, etc). Benadryl ordered for symptom relief, modified by Dr. Thomas
- received 3rd unit PRBC 03/30
- continue steroids , taper slowly, from 30 mg to 20 mg and continue to taper to 10 mg in am.
- received Rocephin/Doxy x 2 days, finished the course.
# Essential HTN
BP had been on the low side at times. Resumed Metoprolol, but will use the Succinate version if only dosing daily. Midodrine also is being used.
Hypotension
- improving with [employer] midodrine and IVF
Hx of orthostatic hypotension
- continue midodrine
SHAYY (pre-renal) on CKD stage 3b
- monitor with IVF and blood resuscitation; Cr is steady at 1.5-->1.2
- bladder scans prn
#LLE DVT with bilateral PE diagnosed 12/2023 (in setting of malignancy)
- holding Xarelto for active bleeding. Goal is comfort now, stopped AC.
#Chronic anemia most likely related to malignancy
- low iron sats; s/p 5 doses of IV iron
#Hx Duodenal Ulcer/GERD
- continue PPI
#HLD, stopped statin due to low intake and goal of comfort
#CAD
- continue BB
#COPD, tapering prednisone , c/w PRN Neb.
#AAA rupture s/p repair
DVT ppx: SCDs
Code: DNR
Total time spent to see the patient, examine the patient, review data and lab results, and discuss the treatment plan with patient, family, consultants, nurse around 57 minutes
Anticipated Discharge: Within 24 hours
Subjective/Interval History
-
Date of Service: April 07, 2024
Was sob over night, morphine helped
Objective Data
-
Vital Signs:
Vital Signs
Temp Pulse Resp BP Pulse Ox
97.7 F 93 20 141/76 97
04/07/24 03:15 04/07/24 03:15 04/07/24 03:15 04/07/24 03:15 04/07/24 03:15
I&O
04/05/24 04/06/24 04/07/24
06:59 06:59 06:59
Intake Total 200 / 200 240 / 240
Output Total 250 / 250 250 / 250 650 / 650
Balance -50 / -50 -10 / -10 -650 / -650
[2024-04-07 07:08] VITALS: BP 127/67
[2024-04-07 07:15] VITALS: BP 127/67
[2024-04-07] MEDS: ProAmatine 2.5 MG PO (08:36)
[2024-04-07] MEDS: DELTASONE 20 MG PO (08:37)
[2024-04-07] MEDS: TIMOPTIC 0.5% OPHTHALMIC SOLUTION 1 DROP BOTH EYES (08:37)
[2024-04-07] MEDS: TOPROL XL 12.5 MG PO (08:37)
--- NOTE | 2024-04-07 12:37 | W.PN.PUL3 ---
Today's Communication / Plan
-
Extensive discussions with care team (hospitalist and IR) on utility of pleurex catheter
I agree I think it would give modest benefit, not sure outweights risk and discomfort of placement
Patient and daughter do not want to proceed, we will cancel procedure
I think at this point we maximize comfort measures, she is already transitioned into palliative care
We will sign off at this time, please call with questions
Assessment
-
84-year-old female with history of significant COPD, severe emphysema per imaging, history of GERD/duodenal ulcer, coronary disease with history of abdominal aortic aneurysm rupture status postrepair, orthostatic hypotension, history of PE December
2023 on anticoagulation, presents with acute hemoptysis after thoracentesis earlier this morning. Patient has had outpatient imaging worrisome for underlying malignancy. We are asked to help from critical care standpoint
Impression:
Acute hemoptysis (non-life threatening) - resolved
Intra-pulmonary parenchymal hematoma
Resolved - suspected to be related to underlying SCLC
Right lower lobe alveolar process, likely from bleeding
Large right sided malignant pleural effusion - due to small cell lung cancer
Multiple pulm nodules, subcarinal mass
Progressive per imaging
Abnormal PET scan worrisome for malignancy 03/22/2024 - likely due to SCLC
Anemia s/p transfusion, 2 units
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
Conditions present prior to admission
Mild aortic stenosis, moderate pulm hypertension
PA pressure 58
Normal biventricular function per echo 01/17/2024
Anemia
History of GERD/peptic ulcer disease
Coronary disease
History of AAA repair
Orthostatic hypotension
Hypertension/hyperlipidemia
Plan/recommendations
At this time, patient appears to be improved objectively and subjectively
Oxygen has been weaned down from 10 L to 5 L
Issues primarily are with exertion from bed to chair
Tachycardia has improved, tachypnea has improved, however when she stands up and exerts himself she is tachycardic and tachypneic. Hemoglobin increased to 10.2 after 1 unit transfusion -Hb is 11.2 on 04/02
Has received a total of 3 units since admission
Urine output marginal, creatinine bumped up to 1.5, decreased to 1.0 as of 04/01. Of note received contrast for CT chest
Hemoptysis has not recurred
She underwent R-sided thoracentesis today to help her symptoms - 500cc removed of dark serosanguineous fluid
History of mild , moderate pulm hypertension noted
Normal biventricular function per echo December [address] chest and PET scan and prior CT imaging at length with patient and daughter
Dr. Thomas had reviewed images
It was personally reviewed with her on 04/02/2024, and reinforced her prognosis on 04/04 + again today indicating she has weeks-months left.
This was reinforced by Oncology as well. I also discussed role of hospice and pleurX catheter insertion, which would allow her to have quality of life once she is back home
CT chest on 04/05 shows large right-sided pleural effusion, with marked right hemithorax compressive atelectasis as well as tumor. Patient initially wanted to hold off on Pleurx for now as she does not want to be 'poked anymore.'
Pleurx was discussed again today, I do think placing a catheter at this time point would provide little to no relief
Daughter and patient agree, she is already on comfort measures, we will cancel procedure.
Regarding her RLL pulmonary hematoma, this is likely due to her lung cancer. I do not think this is related to her thoracentesis. She may have had some mild reexpansion effect possibly exacerbating oozing/bleeding
Patient is status post Kcentra on 03/27. Anticoagulation/Xarelto has been discontinued
Right-sided pleural fluid is positive for metastatic small cell lung cancer, which is extensive stage disease -the medium range of survival for extensive disease is 8-13 months, with less than 5% of patient surviving 2 years
Oncology consulted and recs appreciated - pt not a candidate for chemotherapy
She is DNR/DNI as of 03/30/2024
Remains off Xarelto indefinitely given pulmonary hemorrhage/bleed
She is at high risk for recurrent thromboembolic disease. This was reviewed with family and patient
Recent echocardiogram December 2023 with normal biventricular function, PA pressure 58, valvular disease noted
TINY stockings, sequential stockings, only if in line with comfort
DVT prophylaxis: Mechanical prophylaxis
No additional recommendations at this time � pulmonary service will now sign off. Thank you for allowing us to be involved in the care of this patient. Please reconsult if there are any additional questions/concerns, or if patient's respiratory
status deteriorates.
Data:
CT Chest 04-05-2024:
1.).There has been significant worsening in the interval since the 03/27/2024 examination with very large right-sided pleural effusion and near complete atelectasis of the right lung. There is partial but incomplete aeration of the right upper lobe.
There is soft tissue throughout the right mainstem bronchus which may be tumor, hemorrhage or mucus secretions.
Bronchoscopy may be useful for further evaluation.
2). Centrilobular emphysema.
3). Atherosclerosis
4). Aortic stent in the upper abdomen
5). 10 cm hepatic cyst
Total time spent today was 55 minutes for this encounter. Time includes reviewing laboratory test/imaging results, reviewing pertinent medical records, obtaining and reviewing medical history, performing an appropriate exam, ordering medications,
tests and procedures. Time also includes documentation of this encounter, coordinating patient care and communicating with other healthcare professionals. Total time does not include separately billed tests performed on this date of service.
Subjective Data
-
Date of Service:
Date of Service: April 07, 2024
Chief Complaint: Pulmonary Follow Up
Subjective:
no acute events on
daughter at bedside
on comfort measures
Objective Data
Data Reviewed
Vital Signs / I&O / Oxygen:
Vital Signs
Temp Pulse Resp BP Pulse Ox
98 F 98 22 127/67 95
04/07/24 07:15 04/07/24 07:15 04/07/24 07:15 04/07/24 07:15 04/07/24 08:30
Intake and Output
04/06/24 04/07/24 04/08/24
06:59 06:59 06:59
Intake Total 240 / 240
Output Total 250 / 250 650 / 650 100 / 100
Balance -10 / -10 -650 / -650 -100 / -100
SaO2 95
Nasal Cannula flow liters per 5
minute
Physical Exam
General: Respiratory Distress (negative) and Comfortable
HEENT: Normocephalic and Anicteric
Cardiovascular: S1-S2, Murmur (n), Rub (n) and Peripheral Edema (Negative)
Respiratory: Wheeze (n), Crackles (Right hemithorax), Rhonchi (few), Non-Labored Respirations, Stridor (n), Crepitus (n), Egophony (n) and Other (Decreased overall (R>L))
GI: Soft, Non Distended and Non Tender
Neurology: Awake, Alert and No Motor Deficits (Generally weak, able to sit up without assistance)
Skin: Warm, Dry, Cyanosis (n), Jaundice (n) and Bruising (Few scattered ecchymoses)
Labs/Micro/Reports
Lab Data
04/02/24 05:41
04/01/24 05:19
--- NOTE | 2024-04-07 16:38 | CM ---
CM confirmed plan for home tomorrow with Hospice/[facility]
Transport scheduled for 1200
Will need IMM
Update to Dr Haynes
Discharge Disposition- home tomorrow with hospice
[2024-04-07] MEDS: PROTONIX 40 MG PO (17:28)
--- NOTE | 2024-04-07 17:49 | PTCARENOTE ---
Pt has remained comfortable this shift, only required one dose of PRN Morphine this afternoon after using bedside commode. Fell asleep afterward. Pt now resting when undisturbed, children taking shifts at bedside. Plan for discharge home to
daughter's house on hospice care tomorrow, noon pickup. Per daughter, equipment was delivered to house today. Plan for Pleurex cath canceled per pt and daughter's decision. No further needs at this time.
[2024-04-07 19:25] VITALS: BP 132/80
--- NOTE | 2024-04-07 20:44 | PTCARENOTE ---
Pt resting comfortably in bed with son at bedside. Pt denies pain or discomfort. Continues on comfort measures. O2 at 5L POX 95%. Pt denies need for Morphine at this time. Used BSC to void and assisted back to bed. Rest of assessment as documented.
Call carroll remains within reach. Will continue to monitor.
--- NOTE | 2024-04-07 22:57 | PTCARENOTE ---
Pt requested Morphine. With assist of 1 was assisted to BSC to void small amount than back to bed. Morphine given as ordered. Son currently with pt at beside. Call carroll remains within reach. Will continue to monitor.
[2024-04-08] MEDS: DELTASONE 20 MG PO (09:49)
[2024-04-08] MEDS: ProAmatine 2.5 MG PO (09:52)
[2024-04-08] MEDS: TOPROL XL 12.5 MG PO (09:53)
[2024-04-08] MEDS: TIMOPTIC 0.5% OPHTHALMIC SOLUTION 1 DROP BOTH EYES (09:55)
--- NOTE | 2024-04-08 09:58 | W.DCSUMMARY ---
Discharge Summary
Discharge Data
Date of Admission: 03/27/24
Date of Discharge: 04/08/24
-
Pending Results: No
Hospital Course
84 years old female presented with shortness of breath and hemoptysis. Patient was diagnosed with hemothorax and right-sided lung mass. Patient had thoracentesis a few times in the hospital with the bloody drainage. Cytology was consistent with
a small cell carcinoma. She was seen by oncologist. Per oncology, patient was not a candidate for chemotherapy because of underlying comorbidities and poor functional status. Patient was followed by pulmonary doctor. She had nebulizer
treatment with steroid therapy. She received empiric antibiotic then stopped with no evidence of active infection. Patient was frail and weak. She was also followed by floor steward/stewardess and adjusted her diuretic therapy. Patient continued to have
shortness of breath and was oxygen dependent. She was noted to be short of breath even on minimal exertion. Goal of care was discussed with the family. Family decided to pursue comfort measures. Patient was evaluated by case management, physical
therapy. There was discussion regarding benefits of Pleurx. Family and patient expressed their intentions to pursue comfort care and to avoid further invasive measures to provide comfort to the patient. Patient and family met with [facility]. Patient's wishes were to go home and be surrounded by her family. Hospice agency arranged for home hospice set up. Patient remained hemodynamically stable and was discharged in stable condition to home.
Physical Exam
-
General:Elderly, chronically ill looking, weak looking, in bed. Mild Apparent Distress (at rest)
HEENT: Normocephalic, Atraumatic and Moist Mucous Membranes
Respiratory: limited with rales, not much air right side
Cardiac: S1S2 , regular rate.
GI: Soft, Nontender and Nondistended
Musculoskeletal: No Clubbing, No Cyanosis and No Edema.
Neuro: Awake, Alert and Oriented to self and surroundings, followed commands.
Psyc: no agitation, calm.
Total discharge time spent to see the patient, examine the patient, review data and lab results, and discuss the discharge plan with patient, correctional counselor/case manager, pulmonary doctor, nurse around 65 minutes
Discharge Plan
-
Patient Disposition: Home with Hospice
Discharge Diagnosis/Procedures: Small cell carcinoma of the lung with malignant pleural effusion
Referrals:
UNKNOWN - PT DOES,NOT KNOW [Family Provider] -
Prescriptions:
New
metoprolol succinate 25 mg Tablet Extended Release 24 Hr
12.5 mg PO DAILY Qty: 30 0RF
morphine concentrate 100 mg/5 mL (20 mg/mL) solution
5 mg PO Q6HPRN PRN (Reason: dyspnea, distress) Qty: 15 0RF
Rx Instructions:
Hospice care/ lung cancer
prednisone 10 mg tablet
10 mg PO DAILY Qty: 3 0RF
Continued
pantoprazole [Protonix] 40 mg Tablet,Delayed Release (Dr/Ec)
40 mg PO QPM
midodrine 2.5 mg Tablet
2.5 mg PO DAILY
Anoro Ellipta 62.5-25 mcg/actuation Blister With Device
1 inh INHALATION R DAILY
polyethylene glycol 3350 [Miralax] 17 gram Powder In Packet
0 g PO DAILY PRN (Reason: constipation)
Patient Comments:
03/27/2024, pt. takes less than a capful. Pt. and daughter unsure of exact dose.
timolol maleate 0.5 % Drops
1 drp BOTH EYES DAILY
Discontinued
atorvastatin [Lipitor] 80 mg Tablet
80 mg PO HS
folic acid 1 mg Tablet
1 mg PO DAILY
metoprolol tartrate 25 mg Tablet
12.5 mg PO QPM
cholecalciferol (vitamin D3) [Vitamin D3] 50 mcg (2,000 unit) Tablet
50 mcg PO DAILY
calcium carbonate [Calcium 600] 600 mg calcium (1,500 mg) Tablet
600 mg PO DAILY
Centrum Silver Tablet
1 tab PO DAILY
Xarelto 20 mg Tablet
20 mg PO DAILY
Discharge Orders:
Discharge Patient (As Directed); Ordered 04/08/24
Ordered By: Bill Haynes
Discharge Date and Time
Print Language: OMANI
--- NOTE | 2024-04-08 10:29 | CM ---
CM reviewed chart and pt for dc today
Plan for home with hospice and BLS pickup at 1200
Bedside update to pt and dtr
IMM verbally reviewed-copy provided
Discharge Disposition- home with Hospice
[2024-04-08] MEDS: MORPHINE SULFATE 1 MG IV (11:58)
--- NOTE | 2024-04-08 12:25 | PTCARENOTE ---
Patient transferred to [facility] prior to being discharge. Became short of breath, Morphine 1mg IV administered as per doctors orders with relief. Patient discharged home on hospice. No complaints of pain at time of discharge. Daughter Bridgette and Ellis,
son, and patient verbalized understanding of plan of care.
== END 2024-04-08 12:15 | disposition hospice, home (50) | DRG 180 ==
LOC: IMU 16:41
PROVIDERS: Internal Medicine; Radiology Vascular & Interventional Radiology; Registered Nurse; ADMITTING PHYSICIAN Internal Medicine; ATTENDING PHYSICIAN Internal Medicine; EMERGENCY PHYSICIAN Emergency Medicine; OTHER PHYSICIAN Internal Medicine Critical Care Medicine; OTHER PHYSICIAN Internal Medicine Hematology & Oncology
PROC: 30233N1 Transfusion of Nonautologous Red Blood Cells into Peripheral Vein, Percutaneous Approach (ICD-10-PCS; 2024-03-27)
PROC: 5A0935A Assistance with Respiratory Ventilation, Less than 24 Consecutive Hours, High Flow/Velocity Cannula (ICD-10-PCS; 2024-03-27)
PROC: 0W993ZZ Drainage of Right Pleural Cavity, Percutaneous Approach (ICD-10-PCS; 2024-04-04)
DX: C34.91 Malignant neoplasm of unspecified part of right bronchus or lung (principal); J96.21 Acute and chronic respiratory failure with hypoxia; R04.2 Hemoptysis; N17.9 Acute kidney failure, unspecified; R04.89 Hemorrhage from other sites in respiratory passages; J94.2 Hemothorax; J98.11 Atelectasis; J91.0 Malignant pleural effusion; C78.2 Secondary malignant neoplasm of pleura; D68.32 Hemorrhagic disorder due to extrinsic circulating anticoagulants; Z51.5 Encounter for palliative care; R05.9 Cough, unspecified; I95.1 Orthostatic hypotension; J43.2 Centrilobular emphysema; E78.5 Hyperlipidemia, unspecified; J44.9 Chronic obstructive pulmonary disease, unspecified; R91.8 Other nonspecific abnormal finding of lung field; I12.9 Hypertensive chronic kidney disease with stage 1 through stage 4 chronic kidney disease, or unspecified chronic kidney disease; I25.10 Atherosclerotic heart disease of native coronary artery without angina pectoris; N18.32 Chronic kidney disease, stage 3b; K76.89 Other specified diseases of liver; D64.89 Other specified anemias; R30.0 Dysuria; Z66 Do not resuscitate; Z99.81 Dependence on supplemental oxygen; Z86.711 Personal history of pulmonary embolism; Z79.01 Long term (current) use of anticoagulants; Z87.891 Personal history of nicotine dependence; Z86.718 Personal history of other venous thrombosis and embolism; Z87.11 Personal history of peptic ulcer disease
CPT/HCPCS: 32555; 71045; 71046; 71250; 71260; 76604; 80048; 80053; 81003; 82565; 82607; 82728; 82746; 83540; 83550; 83735; 85014; 85018; 85025; 85610; 85730; 86850; 86900; 86901; 86920; 93005; 94667; 94668; 96374; 97110; 97116; 97163; 97167; 97530; 97535; 99285; J2916; J7168; P9016; Q9967